=== PATIENT | male | born 1950 | race Caucasian/White ===

== ENCOUNTER 2017-08-19 10:40 | Outpatient (CLI) | payer MEDICARE, OTHER ==
[2017-08-19 19:18] LABS: BASOPHILS # (AUTO) 0.1 10^3/uL (0.0-0.1); BASOPHILS % (AUTO) 0.9 %; EOSINOPHILS # (AUTO) 0.2 10^3/uL (0.0-0.7); EOSINOPHILS % (AUTO) 2.5 %; HCT - HEMATOCRIT 48.5 % (42.0-52.0); HGB - HEMOGLOBIN 16.3 g/dL (14.0-18.0); LYMPHOCYTES # (AUTO) 1.9 10^3/uL (1.5-3.5); LYMPHOCYTES % (AUTO) 28.6 %; MEAN CORPUSCULAR HEMOGLOBIN 33.3 pg (27.0-31.0); MEAN CORPUSCULAR HGB CONC 33.6 g/dL (32.0-36.0); MEAN PLATELET VOLUME 7.8 fL (7.4-11.4); MONOCYTES # (AUTO) 0.5 10^3/uL (0.0-1.0); MONOCYTES % (AUTO) 8.3 %; NEUTROPHILS # (AUTO) 3.9 10^3/uL (1.5-6.6); NEUTROPHILS % (AUTO) 59.7 %; NUCLEATED RED BLOOD CELLS AUTO 0.1 /100WBC; RED CELL DISTRIBUTION WIDTH 13.4 % (12.0-15.0); UNCORRECTED WHITE BLOOD COUNT 6.6 x10^3/uL; WHITE BLOOD COUNT 6.6 x10^3/uL (4.8-10.8)
[2017-08-19 19:27] LABS: ALBUMIN/GLOBULIN RATIO 1.3 (1.0-2.2); BILIRUBIN,TOTAL 1.4 mg/dL (0.2-1.0); BUN - BLOOD UREA NITROGEN 10 mg/dL (6-20); CARBON DIOXIDE - CO2 27 mmol/L (21-32); CHLORIDE 101 mmol/L (101-111); CHOL/HDL RATIO 1.9 (<5.0); CHOLESTEROL 188 mg/dL; CREATININE 0.9 mg/dL (0.6-1.2); GFR - MDRD 84 (>89); GLUCOSE 86 mg/dL (70-100); HDL CHOLESTEROL 100 mg/dL; LDL/HDL RATIO 0.7 (<3.6); POTASSIUM 4.8 mmol/L (3.5-5.0); SODIUM 135 mmol/L (135-145); TOTAL PROTEIN 7.9 g/dL (6.7-8.2); TRIGLYCERIDES 77 mg/dL; VLDL CHOLESTEROL 15 mg/dL
== END 2017-08-19 10:41 | disposition home or self-care (01) ==
LOC: LAB.WCP 10:40
PROVIDERS: ATTEND Family Medicine
DX: I10 Essential (primary) hypertension (principal); Z12.5 Encounter for screening for malignant neoplasm of prostate; J44.9 Chronic obstructive pulmonary disease, unspecified
CPT/HCPCS: 36415; 80053; 80061; 85025; G0103; 84153

== ENCOUNTER 2017-08-30 16:10 | Outpatient (CLI) | payer MEDICARE, OTHER ==
--- NOTE | 2017-08-30 23:57 | Ultrasound Report ---
EXAM: AORTIC DOPPLER ULTRASOUND EXAM DATE: 08/30/2017 05:19 PM. CLINICAL HISTORY: Essential hypertension, tobacco abuse. COMPARISON: 03/16/2016. TECHNIQUE: Real-time sonographic imaging of retroperitoneal vascular structures, including color-flow , Doppler flow and spectral analysis was performed by the cleaning professional. Multiple investment representative static images were saved for review. FINDINGS: Aorta: The abdominal aorta was adequately visualized. No evidence for abdominal aortic aneurysm. Proximal aorta: 1.8 cm. Mid aorta: 2.1 x 2.4 cm. Distal aorta: 1.9 x 2.2 cm. Iliac Vessels: The visualized proximal common iliac arteries are normal in caliber. Iliac Vessels: Rt Iliac: 1.6 x 1.1 cm. Lt Iliac: 1.6 x 1.2 cm. Other: None. IMPRESSION: No abdominal aortic aneurysm. [facility] Referring Provider Line: [phone] SITE ID: [id number]
--- NOTE | 2017-08-31 16:14 | Ultrasound Report ---
EXAM: RENAL ARTERY DOPPLER ULTRASOUND EXAM DATE: 08/30/2017 05:29 PM. CLINICAL HISTORY: Essential hypertension, benign. COMPARISON: None. TECHNIQUE: Real-time sonographic vascular imaging was performed by the sponsorship coordinator through the renal arterial system with a linear transducer utilizing color-flow, Doppler flow, and spectral analysis. M ultiple patient accounting representative static images were saved for review. FINDINGS: Right: The right renal artery is well-visualized throughout its length. Velocities and ratios are nor mal. The right renal vein is patent. The right kidney measures 11.6 x 5.5 x 5.5 cm. Resistive indices are elevated, compatible with medical renal disease. A 1.5 cm cyst is incidentally noted arising fro m the lower pole. Left: The left renal artery is well-visualized throughout its length. Velocities and ratios are latesha l. The left kidney measures 11.4 x 6.7 x 6.2 cm. Resistive indices are at the upper limits of normal. The left renal vein is patent. Proximal Aorta Velocity: 75 cm/sec. RIGHT RENAL ARTERY: Origin: PSV 107 cm/sec, RA/AO 1.4. Proximal: PSV 131 cm/sec, RA/AO 1.7. Mid: PSV 167 cm/sec, RA/AO 2.2. Distal: PSV 114 cm/sec, RA/AO 1.5. RRV: Patent. Segmental Artery/Resistive Index: Upper Pole: PSV 71, RI: 0.74. Mid Pole: PSV 54, RI: 0.73. Lower Pole: PSV 60, RI: 0.73. LEFT RENAL ARTERY: Origin: PSV 191 cm/sec, RA/AO 2.5. Proximal: PSV 192 cm/sec, RA/AO 2.5. Mid: PSV 60 cm/sec, RA/AO 0.80. Distal: PSV 73 cm/sec, RA/AO 0.97. LRV: Patent. Segmental Artery/Resistive Index: Upper Pole: PSV 73, RI 0.68. Mid Pole: PSV 37, RI 0.67. Lower Pole: PSV 74, RI 0.69. IMPRESSION: No evidence of a hemodynamically significant renal artery stenosis. Likely mild medical renal disease . No hydronephrosis. CRITERIA FOR CLASSIFICATION OF RENAL ARTERY DISEASE BY DUPLEX SCANNING: Renal Artery Diameter Reduction/ Renal Artery PSV/ RAR: Normal, < 180 cm/sec, < 3.5 < 60%, >= 180 cm/sec, < 3.5 >= 60%, >= 180 cm/sec, >= 3.5 Occlusion (100%), No signal, No signal [facility] Referring Provider Line: [phone] SITE ID: [id number]
--- NOTE | 2017-08-31 16:27 | CT Report ---
EXAM CT LUNG SCREEN EXAM DATE: 08/30/2017 05:31 PM. HISTORY: 67-year-old patient with [id number] smoking history . Currently smoking: Yes. . COMPARISON: None. TECHNIQUE: CT examination of the entire thorax without contrast was performed using low-dose techniqu e. Thin section coronal, axial, sagittal and MIP axial images were obtained. In accordance with CT protocol optimization, one or more of the following dose reduction techniques w ere utilized for this exam: automated exposure control, adjustment of mA and/or KV based on patient s ize, or use of iterative reconstructive technique. FINDINGS: Nodules: Right upper lobe: None. Right middle lobe: None. Right lower lobe: None. Left upper lobe: None. Left lower lobe: None. Emphysema: Mild biapical. Pleura: Unremarkable. Aorta: Unremarkable. Mediastinum: Unremarkable. Coronary Calcifications: None. Other Findings: None. IMPRESSION: Lung-RADS ASSESSMENT CATEGORY: 1 - negative RECOMMENDATION: Continued annual screening with low-dose chest CT in 12 months. [facility] Referring Provider Line: [phone] SITE ID: [id number]
== END 2017-08-30 16:11 | disposition home or self-care (01) ==
LOC: DI 16:10
PROVIDERS: ATTEND Physician Assistant Medical
DX: Z12.2 Encounter for screening for malignant neoplasm of respiratory organs (principal); Z13.6 Encounter for screening for cardiovascular disorders; I10 Essential (primary) hypertension; F17.210 Nicotine dependence, cigarettes, uncomplicated
CPT/HCPCS: 76706; 93975; G0297

== ENCOUNTER 2018-08-18 08:00 | Outpatient (CLI) | payer MEDICARE, OTHER ==
[2018-08-18 15:02] LABS: ALBUMIN 4.6 g/dL (3.2-5.5); ALBUMIN/GLOBULIN RATIO 1.3 (1.0-2.2); ALKALINE PHOSPHATASE 42 IU/L (42-121); ALT ALANINE AMINOTRANSFERASE 24 IU/L (10-60); AST ASPARTATE AMINOTRANSFERASE 27 IU/L (10-42); BASOPHILS % (AUTO) 0.7 %; BILIRUBIN,TOTAL 1.5 mg/dL (0.2-1.0); BUN - BLOOD UREA NITROGEN < 5 mg/dL (6-20); CARBON DIOXIDE - CO2 27 mmol/L (21-32); CHLORIDE 91 mmol/L (101-111); CHOL/HDL RATIO 2.1 (<5.0); CHOLESTEROL 197 mg/dL; CREATININE 0.8 mg/dL (0.6-1.2); EOSINOPHILS # (AUTO) 0.1 10^3/uL (0.0-0.7); EOSINOPHILS % (AUTO) 1.8 %; GFR - MDRD 96 (>89); GLUCOSE 101 mg/dL (70-100); HDL CHOLESTEROL 96 mg/dL; HGB - HEMOGLOBIN 16.8 g/dL (14.0-18.0); LYMPHOCYTES # (AUTO) 1.6 10^3/uL (1.5-3.5); LYMPHOCYTES % (AUTO) 25.4 %; MEAN CORPUSCULAR HEMOGLOBIN 33.9 pg (27.0-31.0); MEAN CORPUSCULAR HGB CONC 35.1 g/dL (32.0-36.0); MEAN CORPUSCULAR VOLUME 96.5 fL (80.0-94.0); MEAN PLATELET VOLUME 7.5 fL (7.4-11.4); MONOCYTES # (AUTO) 0.7 10^3/uL (0.0-1.0); MONOCYTES % (AUTO) 10.6 %; NEUTROPHILS # (AUTO) 3.8 10^3/uL (1.5-6.6); NEUTROPHILS % (AUTO) 61.5 %; PLT - PLATELET COUNT 251 10^3/uL (130-450); RED BLOOD COUNT 4.96 10^6/uL (4.70-6.10); RED CELL DISTRIBUTION WIDTH 13.2 % (12.0-15.0); SODIUM 126 mmol/L (135-145); TOTAL PROTEIN 8.2 g/dL (6.7-8.2); WHITE BLOOD COUNT 6.3 x10^3/uL (4.8-10.8)
[2018-08-18 15:28] LABS: LDL CHOLESTEROL,DIRECT 66 mg/dL; LDLD/HDL RATIO 0.7 (<3.6)
== END 2018-08-18 23:59 | disposition home or self-care (01) ==
LOC: LAB.WCP 08:00
PROVIDERS: ATTEND Family Medicine
DX: I10 Essential (primary) hypertension (principal); Z12.5 Encounter for screening for malignant neoplasm of prostate
CPT/HCPCS: 36415; 80053; 80061; 83721; 85025; G0103; 84153

== ENCOUNTER 2019-03-27 08:00 | Outpatient (CLI) | payer MEDICARE, OTHER ==
[2019-03-27 12:07] LABS: BASOPHILS # (AUTO) 0.1 10^3/uL (0.0-0.1); BASOPHILS % (AUTO) 0.9 %; EOSINOPHILS # (AUTO) 0.3 10^3/uL (0.0-0.7); EOSINOPHILS % (AUTO) 4.4 %; HGB - HEMOGLOBIN 16.5 g/dL (14.0-18.0); LYMPHOCYTES % (AUTO) 35.9 %; MEAN CORPUSCULAR HEMOGLOBIN 32.4 pg (27.0-31.0); MEAN CORPUSCULAR HGB CONC 33.7 g/dL (32.0-36.0); MEAN CORPUSCULAR VOLUME 96.3 fL (80.0-94.0); MEAN PLATELET VOLUME 9.5 fL (7.4-11.4); MONOCYTES # (AUTO) 0.6 10^3/uL (0.0-1.0); MONOCYTES % (AUTO) 10.4 %; NEUTROPHILS # (AUTO) 2.7 10^3/uL (1.5-6.6); NEUTROPHILS % (AUTO) 48.2 %; PLT - PLATELET COUNT 220 10^3/uL (130-450); RED BLOOD COUNT 5.09 10^6/uL (4.70-6.10); RED CELL DISTRIBUTION WIDTH 13.1 % (12.0-15.0); WHITE BLOOD COUNT 5.7 x10^3/uL (4.8-10.8)
[2019-03-27 13:09] LABS: ALBUMIN 4.3 g/dL (3.2-5.5); ALBUMIN/GLOBULIN RATIO 1.1 (1.0-2.2); ALKALINE PHOSPHATASE 40 IU/L (42-121); ALT ALANINE AMINOTRANSFERASE 28 IU/L (10-60); AST ASPARTATE AMINOTRANSFERASE 32 IU/L (10-42); BILIRUBIN,TOTAL 1.6 mg/dL (0.2-1.0); BUN - BLOOD UREA NITROGEN 7 mg/dL (6-20); CALCIUM 9.1 mg/dL (8.5-10.3); CARBON DIOXIDE - CO2 22 mmol/L (21-32); CHLORIDE 93 mmol/L (101-111); CHOL/HDL RATIO 1.8 (<5.0); CHOLESTEROL 167 mg/dL; CREATININE 0.8 mg/dL (0.6-1.2); GFR - MDRD 96 (>89); GLUCOSE 73 mg/dL (70-100); HDL CHOLESTEROL 92 mg/dL; LDL CHOLESTEROL,CALCULATED 62 mg/dL; LDL/HDL RATIO 0.7 (<3.6); SODIUM 131 mmol/L (135-145); TOTAL PROTEIN 8.1 g/dL (6.7-8.2); VLDL CHOLESTEROL 13 mg/dL
== END 2019-03-27 23:59 | disposition home or self-care (01) ==
LOC: LAB.WCP 08:00
PROVIDERS: ATTEND Physician Assistant Medical
DX: Z00.00 Encounter for general adult medical examination without abnormal findings (principal); I10 Essential (primary) hypertension
CPT/HCPCS: 36415; 80053; 80061; 83721; 85025

== ENCOUNTER 2019-10-12 07:50 | Outpatient (CLI) | payer MEDICARE, OTHER ==
[2019-10-12 12:07] LABS: BASOPHILS % (AUTO) 0.7 %; EOSINOPHILS # (AUTO) 0.3 10^3/uL (0.0-0.7); EOSINOPHILS % (AUTO) 4.4 %; HGB - HEMOGLOBIN 16.3 g/dL (14.0-18.0); LYMPHOCYTES % (AUTO) 31.7 %; MEAN CORPUSCULAR HEMOGLOBIN 33.2 pg (27.0-31.0); MEAN CORPUSCULAR HGB CONC 34.2 g/dL (32.0-36.0); MEAN CORPUSCULAR VOLUME 96.9 fL (80.0-94.0); MEAN PLATELET VOLUME 9.2 fL (7.4-11.4); MONOCYTES # (AUTO) 0.7 10^3/uL (0.0-1.0); NEUTROPHILS # (AUTO) 3.1 10^3/uL (1.5-6.6); NEUTROPHILS % (AUTO) 50.9 %; PLT - PLATELET COUNT 235 10^3/uL (130-450); RED BLOOD COUNT 4.91 10^6/uL (4.70-6.10); RED CELL DISTRIBUTION WIDTH 12.5 % (12.0-15.0); WHITE BLOOD COUNT 6.2 x10^3/uL (4.8-10.8)
[2019-10-12 12:33] LABS: ALBUMIN 4.2 g/dL (3.2-5.5); ALBUMIN/GLOBULIN RATIO 1.1 (1.0-2.2); ALKALINE PHOSPHATASE 41 IU/L (42-121); ALT ALANINE AMINOTRANSFERASE 31 IU/L (10-60); AST ASPARTATE AMINOTRANSFERASE 32 IU/L (10-42); BILIRUBIN,TOTAL 1.7 mg/dL (0.2-1.0); BUN - BLOOD UREA NITROGEN 11 mg/dL (6-20); CALCIUM 8.8 mg/dL (8.5-10.3); CARBON DIOXIDE - CO2 26 mmol/L (21-32); CHLORIDE 93 mmol/L (101-111); CHOL/HDL RATIO 1.9 (<5.0); CHOLESTEROL 181 mg/dL; CREATININE 0.9 mg/dL (0.6-1.2); GFR - MDRD 84 (>89); GLUCOSE 93 mg/dL (70-100); HDL CHOLESTEROL 95 mg/dL; LDL CHOLESTEROL,CALCULATED 75 mg/dL; LDL/HDL RATIO 0.8 (<3.6); SODIUM 131 mmol/L (135-145); TOTAL PROTEIN 7.9 g/dL (6.7-8.2); VLDL CHOLESTEROL 11 mg/dL
== END 2019-10-12 23:59 | disposition home or self-care (01) ==
LOC: LAB.WCP 07:50
PROVIDERS: ATTEND Physician Assistant Medical
DX: I10 Essential (primary) hypertension (principal); Z12.5 Encounter for screening for malignant neoplasm of prostate
CPT/HCPCS: 36415; 80053; 80061; 85025; G0103; 83721; 84153

== ENCOUNTER 2019-10-16 13:17 | Outpatient (CLI) | payer MEDICARE, OTHER ==
--- NOTE | 2019-10-16 16:38 | CT Report ---
Reason: TOBACCO ABUSE Procedure Date: 10/16/2019 Accession Number: [id number] / [id number] Procedure: CT - Low Dose Lung Cancer Screen CPT Code: Final Report FULL RESULT: EXAM CT LUNG SCREEN EXAM DATE: 10/16/2019 01:33 PM. HISTORY: 69-year-old patient with [id number] smoking history. Currently smoking: Yes. COMPARISON: CHEST SCREEN LOW DOSE W/O 08/30/2017 4:55 PM. TECHNIQUE: CT examination of the entire thorax without contrast was performed using low-dose technique. Thin section coronal, axial, sagittal and MIP axial images were obtained. In accordance with CT protocol optimization, one or more of the following dose reduction techniques were utilized for this exam: automated exposure control, adjustment of mA and/or KV based on patient size, or use of iterative reconstructive technique. FINDINGS: Nodules: Right upper lobe: None. Right middle lobe: None. Right lower lobe: 5 mm nodule image 111 series 4, new. Left upper lobe: None. Left lower lobe: None. Emphysema: Mild. Pleura: Unremarkable. Aorta: Unremarkable. Mediastinum: Unremarkable. Coronary calcifications: Moderate. Other pulmonary findings: None. Other extrapulmonary findings: None. IMPRESSION: Lung-RADS ASSESSMENT CATEGORY: 3 - probably benign. Probability of malignancy: 2%. RECOMMENDATION: 6 month low-dose chest CT follow-up. [facility]
== END 2019-10-16 13:18 | disposition home or self-care (01) ==
LOC: DI 13:17
PROVIDERS: ATTEND Physician Assistant Medical
DX: Z12.2 Encounter for screening for malignant neoplasm of respiratory organs (principal); F17.210 Nicotine dependence, cigarettes, uncomplicated; J43.9 Emphysema, unspecified

== ENCOUNTER 2020-04-18 08:00 | Outpatient (CLI) | payer MEDICARE, OTHER ==
[2020-04-18 12:17] LABS: BASOPHILS # (AUTO) 0.1 10^3/uL (0.0-0.1); EOSINOPHILS # (AUTO) 0.2 10^3/uL (0.0-0.7); EOSINOPHILS % (AUTO) 2.7 %; HGB - HEMOGLOBIN 16.7 g/dL (14.0-18.0); LYMPHOCYTES # (AUTO) 1.6 10^3/uL (1.5-3.5); MEAN CORPUSCULAR HEMOGLOBIN 34.7 pg (27.0-31.0); MEAN CORPUSCULAR HGB CONC 35.8 g/dL (32.0-36.0); MEAN CORPUSCULAR VOLUME 96.9 fL (80.0-94.0); MEAN PLATELET VOLUME 9.3 fL (7.4-11.4); MONOCYTES # (AUTO) 0.7 10^3/uL (0.0-1.0); MONOCYTES % (AUTO) 10.7 %; NEUTROPHILS # (AUTO) 3.7 10^3/uL (1.5-6.6); NEUTROPHILS % (AUTO) 60.1 %; PLT - PLATELET COUNT 217 10^3/uL (130-450); RED BLOOD COUNT 4.81 10^6/uL (4.70-6.10); RED CELL DISTRIBUTION WIDTH 12.5 % (12.0-15.0); WHITE BLOOD COUNT 6.2 x10^3/uL (4.8-10.8)
[2020-04-18 12:55] LABS: ALBUMIN 4.3 g/dL (3.2-5.5); ALBUMIN/GLOBULIN RATIO 1.3 (1.0-2.2); ALKALINE PHOSPHATASE 38 IU/L (42-121); ALT ALANINE AMINOTRANSFERASE 33 IU/L (10-60); AST ASPARTATE AMINOTRANSFERASE 32 IU/L (10-42); BILIRUBIN,TOTAL 1.8 mg/dL (0.2-1.0); BUN - BLOOD UREA NITROGEN 8 mg/dL (6-20); CALCIUM 9.1 mg/dL (8.5-10.3); CARBON DIOXIDE - CO2 27 mmol/L (21-32); CHLORIDE 92 mmol/L (101-111); CHOLESTEROL 169 mg/dL; CREATININE 0.8 mg/dL (0.6-1.2); GLUCOSE 84 mg/dL (70-100); HDL CHOLESTEROL 84 mg/dL; LDL CHOLESTEROL,CALCULATED 72 mg/dL; LDL/HDL RATIO 0.9 (<3.6); SODIUM 129 mmol/L (135-145); TOTAL PROTEIN 7.7 g/dL (6.7-8.2); VLDL CHOLESTEROL 13 mg/dL
== END 2020-04-18 23:59 | disposition home or self-care (01) ==
LOC: LAB.WCP 08:00
PROVIDERS: ATTEND Physician Assistant Medical
DX: I10 Essential (primary) hypertension (principal)
CPT/HCPCS: 36415; 80053; 80061; 83721; 85025

== ENCOUNTER 2020-10-03 07:51 | Outpatient (CLI) | payer MEDICARE, OTHER ==
[2020-10-03 13:46] LABS: ALBUMIN 4.1 g/dL (3.2-5.5); ALBUMIN/GLOBULIN RATIO 1.1 (1.0-2.2); BILIRUBIN,TOTAL 2.5 mg/dL (0.2-1.0); CREATININE 1.1 mg/dL (0.6-1.2); TOTAL PROTEIN 7.7 g/dL (6.7-8.2)
== END 2020-10-03 23:59 | disposition home or self-care (01) ==
LOC: LAB.WCP 07:51
PROVIDERS: ATTEND Physician Assistant Medical
DX: I10 Essential (primary) hypertension (principal); D12.6 Benign neoplasm of colon, unspecified
CPT/HCPCS: 36415; 80053; 84153

== ENCOUNTER 2021-05-16 07:58 | Outpatient (CLI) | payer MEDICARE, OTHER ==
[2021-05-16 11:53] LABS: BASOPHILS # (AUTO) 0.1 10^3/uL (0.0-0.1); BASOPHILS % (AUTO) 0.9 %; EOSINOPHILS # (AUTO) 0.2 10^3/uL (0.0-0.7); EOSINOPHILS % (AUTO) 2.9 %; HGB - HEMOGLOBIN 15.5 g/dL (14.0-18.0); LYMPHOCYTES # (AUTO) 1.6 10^3/uL (1.5-3.5); LYMPHOCYTES % (AUTO) 27.4 %; MEAN CORPUSCULAR HEMOGLOBIN 33.8 pg (27.0-31.0); MEAN CORPUSCULAR HGB CONC 34.4 g/dL (32.0-36.0); MEAN PLATELET VOLUME 9.2 fL (7.4-11.4); MONOCYTES # (AUTO) 0.7 10^3/uL (0.0-1.0); MONOCYTES % (AUTO) 12.7 %; NEUTROPHILS # (AUTO) 3.2 10^3/uL (1.5-6.6); NEUTROPHILS % (AUTO) 55.6 %; PLT - PLATELET COUNT 215 10^3/uL (130-450); RED BLOOD COUNT 4.59 10^6/uL (4.70-6.10); RED CELL DISTRIBUTION WIDTH 12.6 % (12.0-15.0); WHITE BLOOD COUNT 5.8 x10^3/uL (4.8-10.8)
[2021-05-16 12:28] LABS: ALBUMIN 4.2 g/dL (3.2-5.5); ALBUMIN/GLOBULIN RATIO 1.1 (1.0-2.2); ALKALINE PHOSPHATASE 57 IU/L (42-121); ALT ALANINE AMINOTRANSFERASE 25 IU/L (10-60); AST ASPARTATE AMINOTRANSFERASE 29 IU/L (10-42); BILIRUBIN,TOTAL 1.6 mg/dL (0.2-1.0); BUN - BLOOD UREA NITROGEN 11 mg/dL (6-20); CALCIUM 9.4 mg/dL (8.5-10.3); CARBON DIOXIDE - CO2 28 mmol/L (21-32); CHLORIDE 92 mmol/L (101-111); CHOL/HDL RATIO 1.7 (<5.0); CHOLESTEROL 187 mg/dL; CREATININE 1.1 mg/dL (0.6-1.2); GFR - MDRD 66 (>89); GLUCOSE 84 mg/dL (70-100); HDL CHOLESTEROL 108 mg/dL; LDL CHOLESTEROL,CALCULATED 68 mg/dL; LDL/HDL RATIO 0.6 (<3.6); POTASSIUM 4.7 mmol/L (3.5-5.0); SODIUM 130 mmol/L (135-145); TRIGLYCERIDES 55 mg/dL; VLDL CHOLESTEROL 11 mg/dL
== END 2021-05-16 23:59 | disposition home or self-care (01) ==
LOC: LAB.WCP 07:58
PROVIDERS: ATTEND Physician Assistant Medical
DX: I10 Essential (primary) hypertension (principal)
CPT/HCPCS: 36415; 80053; 80061; 83721; 85025

== ENCOUNTER 2021-06-21 14:17 | Outpatient (CLI) | payer MEDICARE, OTHER ==
--- NOTE | 2021-06-21 16:04 | CT Report ---
PROCEDURE: Low Dose Lung Cancer Screen INDICATIONS: PULMONARY NODULE CONTRAST: None TECHNIQUE: Low dose CT of the chest was performed. For radiation dose reduction, the following was used: automa caridad exposure control, adjustment of mA and/or kV according to patient size. COMPARISON: None. FINDINGS: Image quality: Excellent. CHEST: Lungs and pleura: The lungs demonstrate paraseptal and centrilobular emphysematous changes. No pulmon carmen nodules are identified. No acute airspace opacities. No pleural effusions or pneumothorax. Elza tral and peripheral airways appear patent and normal in caliber. The coronary arteries have atherosc lerotic calcifications. Mediastinum: Heart size is normal. No pericardial effusion. No mediastinal or hilar adenopathy by size criteria. Thoracic aorta and central pulmonary arteries are normal in size. Esophagus is latesha l in caliber. No hiatal hernia. Chest wall: No axillary or supraclavicular adenopathy by size criteria. Thyroid is normal IMPRESSION: 1. No pulmonary nodule identified. 2. Centrilobular emphysema and paraseptal emphysema. Lung RADS 1. No nodules or definitely benign nodules. Continue annual screening with low-dose chest C T. Reviewed by: Candelario Celestin on 06/21/2021 4:03 PM PDT Approved by: Candelario Celestin on 06/21/2021 4:03 PM PDT Station ID: [id number]
== END 2021-06-21 14:18 | disposition home or self-care (01) ==
LOC: DI 14:17
PROVIDERS: ATTEND Physician Assistant Medical
DX: R91.1 Solitary pulmonary nodule (principal); F17.210 Nicotine dependence, cigarettes, uncomplicated; J43.2 Centrilobular emphysema

== ENCOUNTER 2021-08-25 07:29 | Day surgery (SDC) | payer MEDICARE, OTHER ==
--- NOTE | 2021-08-25 07:41 | ANESTHESIA ---
Pre-Anesthesia VS, & Labs - Diagnosis hx colon polyps - Procedure colonoscopy Height: 5 ft 7 in Home Medications and Allergies Home Medications: Ambulatory Orders Lactobacillus Combination No.4 [Probiotic] 1 each PO DAILY 08/24/21 hydroCHLOROthiazide [Hydrodiuril] 25 mg PO DAILY 08/24/21 Telmisartan [Micardis] 1 tab ORAL DAILY 05/11/16 Lactobacillus Combination No.4 [Probiotic] 1 each PO DAILY 08/24/21 hydroCHLOROthiazide [Hydrodiuril] 25 mg PO DAILY 08/24/21 Anes History & Medical History - Anesthetic History Anesthesia Complications: reports: No previous complications Family history of Anesthesia Complications: Denies Family history of Malignant Hyperthermia: Denies - Medical History Cardiovascular: reports: Hypertension Pulmonary: reports: None Gastrointestinal: reports: None Urinary: reports: None Musculoskeletal: reports: Osteoarthritis Endocrine/Autoimmune: reports: None Skin: reports: None - Surgical History General: reports: Colonoscopy, Other Orthopedic: reports: Knee replacement Exam General: Alert, Oriented x3, Cooperative Dental: WNL Mouth Openin Fingerbreadth Neck Mobility: Normal Mallampati classification: II Thyromental Distance: 4-6 cm Respiratory: Lungs clear, Normal breath sounds, No respiratory distress Cardiovascular: Regular rate Mental/Cognitive Status: Alert/Oriented X3, Normal for patient Cognitive Status: Within normal limits Plan Anesthesia Type: General, Total IV Consent for Procedure(s) Verified and Reviewed: Yes Code Status: Attempt Resuscitation ASA classification: 2-Mild systemic disease Is this case an emergency?: No
[2021-08-25] MEDS ORDERED: LACTATED RINGERS 1,000 ML IV ONE ×2 (08:01→09:14)
[2021-08-25] MEDS ORDERED: LIDOCAINE-MPF 2% 5 ML VIAL ONE (08:26)
[2021-08-25] MEDS ORDERED: PROPOFOL 500 MG/50 ML 500 MG/50 ML VIAL ONE (08:27)
--- NOTE | 2021-08-25 08:32 | HISTORY & PHYSICAL EXAMINATION ---
Chief Complaint - Chief Complaint Chief Complaint: history colon polyp History of Present Illness - History Obtained From Records Reviewed: yes History obtained from: pt Exam Limitations: none - History of Present Illness HPI Comment/Other: History of colon polyp. Here for surveillance colonoscopy History - Past Medical History Cardiovascular: reports: Hypertension Respiratory: reports: None Endocrine/Autoimmune: reports: None GI: reports: None : reports: None HEENT: reports: Chronic vision loss, Chronic hearing loss Psych: Musculoskeletal: reports: Osteoarthritis Derm: reports: None MRSA Hx?: No - Past Surgical History General: reports: Colonoscopy, Other Ortho: reports: Knee replacement Meds/Allgy - Home Medications Home Medications: Ambulatory Orders Medication Instructions Recorded Confirmed Telmisartan [Micardis] 1 tab ORAL DAILY 05/11/16 05/14/16 Lactobacillus Combination No.4 1 each PO DAILY 08/24/21 08/24/21 [Probiotic] hydroCHLOROthiazide [Hydrodiuril] 25 mg PO DAILY 08/24/21 08/24/21 Review of Systems - Other Findings Other Findings: 10 pt ros as above otherwise unremarkable Exam - Vital Signs Reviewed Vital Signs: Yes Vital Signs: Vital Signs x48h Temp Pulse Resp BP Pulse Ox 08/25/21 07:44 36.2 C L 88 17 168/98 H 93 - Physical Exam General Appearance: positive: Alert Eyes Bilateral: positive: PERRL, EOMI ENT: positive: No signs of dehydration Neck: positive: No JVD Respiratory: positive: No respiratory distress, Breath sounds nml Cardiovascular: positive: Regular rate & rhythm Abdomen: positive: Non-tender, No distention Neurologic/Psychiatric: positive: Oriented x3 Conclusion/Plan - Problem List (1) History of adenomatous polyp of colon Conclusion/Plan: plan colonoscopy. parq held and consent obtained
[2021-08-25] MEDS ORDERED: ePHEDrine 50 MG/ML VIAL IVP ONE (09:05)
[2021-08-25 09:37] VITALS: BP 141/80
--- NOTE | 2021-08-25 10:20 | ANESTHESIA POST OP EVALUATION ---
Anesthesia Post Eval - Post Anesthesia Eval Vitals: Last Vital Signs Temp 36.4 C L 08/25/21 09:37 Pulse 73 08/25/21 09:37 Resp 16 08/25/21 09:37 BP 141/80 H 08/25/21 09:37 Pulse Ox 100 08/25/21 09:37 CV Function Including HR & BP: Stable Pain Control: Satisfactory Nausea & Vomiting: Negative Mental Status: Baseline Respiratory Status: Airway Patent Hydration Status: Satisfactory Anesthesia Complications: None
== END 2021-08-25 07:30 | disposition home or self-care (01) ==
LOC: SDS 07:29
PROVIDERS: ATTEND Surgery
DX: Z12.11 Encounter for screening for malignant neoplasm of colon (principal); K60.2 Anal fissure, unspecified; K57.30 Diverticulosis of large intestine without perforation or abscess without bleeding; F10.99 Alcohol use, unspecified with unspecified alcohol-induced disorder; J44.9 Chronic obstructive pulmonary disease, unspecified; Z86.010 Personal history of colon polyps
CPT/HCPCS: G0105; J7120

== ENCOUNTER 2022-03-16 08:00 | Outpatient (CLI) | payer MEDICARE, OTHER ==
[2022-03-16 12:29] LABS: BASOPHILS # (AUTO) 0.1 10^3/uL (0.0-0.1); BASOPHILS % (AUTO) 1.1 %; EOSINOPHILS # (AUTO) 0.3 10^3/uL (0.0-0.7); EOSINOPHILS % (AUTO) 5.6 %; HGB - HEMOGLOBIN 15.6 g/dL (14.0-18.0); LYMPHOCYTES # (AUTO) 1.5 10^3/uL (1.5-3.5); MEAN CORPUSCULAR HEMOGLOBIN 33.7 pg (27.0-31.0); MEAN CORPUSCULAR HGB CONC 34.7 g/dL (32.0-36.0); MEAN CORPUSCULAR VOLUME 97.2 fL (80.0-94.0); MEAN PLATELET VOLUME 9.2 fL (7.4-11.4); MONOCYTES # (AUTO) 0.8 10^3/uL (0.0-1.0); MONOCYTES % (AUTO) 14.3 %; NEUTROPHILS # (AUTO) 2.9 10^3/uL (1.5-6.6); NEUTROPHILS % (AUTO) 52.5 %; PLT - PLATELET COUNT 209 10^3/uL (130-450); RED BLOOD COUNT 4.63 10^6/uL (4.70-6.10); RED CELL DISTRIBUTION WIDTH 12.1 % (12.0-15.0); WHITE BLOOD COUNT 5.6 x10^3/uL (4.8-10.8)
[2022-03-16 12:48] LABS: ALBUMIN/GLOBULIN RATIO 1.1 (1.0-2.2); ALKALINE PHOSPHATASE 46 IU/L (42-121); ALT ALANINE AMINOTRANSFERASE 25 IU/L (10-60); AST ASPARTATE AMINOTRANSFERASE 30 IU/L (10-42); BILIRUBIN,TOTAL 1.6 mg/dL (0.2-1.0); BUN - BLOOD UREA NITROGEN 8 mg/dL (6-20); CALCIUM 9.1 mg/dL (8.5-10.3); CARBON DIOXIDE - CO2 29 mmol/L (21-32); CHLORIDE 90 mmol/L (101-111); CHOL/HDL RATIO 1.7 (<5.0); CHOLESTEROL 174 mg/dL; GFR - MDRD 73 (>89); GLUCOSE 82 mg/dL (70-100); HDL CHOLESTEROL 101 mg/dL; LDL CHOLESTEROL,CALCULATED 63 mg/dL; LDL/HDL RATIO 0.6 (<3.6); POTASSIUM 4.4 mmol/L (3.5-5.0); SODIUM 126 mmol/L (135-145); TOTAL PROTEIN 7.7 g/dL (6.7-8.2); TRIGLYCERIDES 48 mg/dL; VLDL CHOLESTEROL 10 mg/dL
== END 2022-03-16 08:01 | disposition home or self-care (01) ==
LOC: LAB.N 08:00
PROVIDERS: ATTEND Physician Assistant Medical
DX: I10 Essential (primary) hypertension (principal)
CPT/HCPCS: 36415; 80053; 80061; 83721; 85025

== ENCOUNTER 2022-04-09 09:33 | Outpatient (CLI) | payer MEDICARE, OTHER ==
--- NOTE | 2022-04-09 13:02 | XRAY Report ---
PROCEDURE: Hip w/Pelvis 1V LT INDICATIONS: L HIP PX TECHNIQUE: AP pelvis with lateral views of the left hip COMPARISON: None. FINDINGS: Bones: No acute fractures or dislocations. Pelvic ring appears intact. No suspicious bony lesions. Degenerative changes are seen in the hips bilaterally with predominantly medial joint space narrowi ng and marginal osteophyte formation. Degenerative changes also noted in the lower lumbar spine. Soft tissues: The visualized bowel gas pattern is normal. Heterotopic ossification is seen along the lateral aspect of the left proximal femur. IMPRESSION: 1.Moderate degenerative changes in the hips bilaterally. Degenerative changes also seen in the lumbar spine. 2.Mild heterotopic ossification at the lateral aspect of the left proximal femur. Reviewed by: Norbert Ignacio MD on 04/09/2022 1:00 PM PDT Approved by: Norbert Ignacio MD on 04/09/2022 1:00 PM PDT Station ID: [id number]
== END 2022-04-09 09:34 | disposition home or self-care (01) ==
LOC: DI.N 09:33
PROVIDERS: ATTEND Physician Assistant Medical
DX: M16.0 Bilateral primary osteoarthritis of hip (principal); M47.816 Spondylosis without myelopathy or radiculopathy, lumbar region

== ENCOUNTER 2023-04-02 07:56 | Outpatient (CLI) | payer MEDICARE, OTHER ==
[2023-04-02 12:18] LABS: BASOPHILS # (AUTO) 0.1 10^3/uL (0.0-0.1); BASOPHILS % (AUTO) 1.2 %; EOSINOPHILS # (AUTO) 0.5 10^3/uL (0.0-0.7); EOSINOPHILS % (AUTO) 8.4 %; HCT - HEMATOCRIT 43.4 % (42.0-52.0); HGB - HEMOGLOBIN 15.6 g/dL (14.0-18.0); LYMPHOCYTES # (AUTO) 1.8 10^3/uL (1.5-3.5); LYMPHOCYTES % (AUTO) 29.1 %; MEAN CORPUSCULAR HEMOGLOBIN 33.9 pg (27.0-31.0); MEAN CORPUSCULAR HGB CONC 35.9 g/dL (32.0-36.0); MEAN CORPUSCULAR VOLUME 94.3 fL (80.0-94.0); MEAN PLATELET VOLUME 9.2 fL (7.4-11.4); MONOCYTES # (AUTO) 0.8 10^3/uL (0.0-1.0); MONOCYTES % (AUTO) 13.2 %; NEUTROPHILS # (AUTO) 2.9 10^3/uL (1.5-6.6); NEUTROPHILS % (AUTO) 47.6 %; PLT - PLATELET COUNT 215 10^3/uL (130-450); RED CELL DISTRIBUTION WIDTH 12.1 % (12.0-15.0)
[2023-04-02 12:41] LABS: ALBUMIN 4.2 g/dL (3.2-5.5); ALBUMIN/GLOBULIN RATIO 1.1 (1.0-2.2); ALKALINE PHOSPHATASE 46 IU/L (42-121); ALT ALANINE AMINOTRANSFERASE 25 IU/L (10-60); AST ASPARTATE AMINOTRANSFERASE 26 IU/L (10-42); BILIRUBIN,TOTAL 2.1 mg/dL (0.2-1.0); BUN - BLOOD UREA NITROGEN 10 mg/dL (6-20); CALCIUM 8.9 mg/dL (8.5-10.3); CARBON DIOXIDE - CO2 31 mmol/L (21-32); CHLORIDE 90 mmol/L (101-111); CHOL/HDL RATIO 1.7 (<5.0); CHOLESTEROL 185 mg/dL; CREATININE 1.1 mg/dL (0.6-1.2); GFR - MDRD 66 (>89); GLUCOSE 97 mg/dL (70-100); HDL CHOLESTEROL 112 mg/dL; LDL CHOLESTEROL,CALCULATED 61 mg/dL; LDL/HDL RATIO 0.5 (<3.6); POTASSIUM 4.2 mmol/L (3.5-5.0); SODIUM 127 mmol/L (135-145); TRIGLYCERIDES 61 mg/dL; VLDL CHOLESTEROL 12 mg/dL
== END 2023-04-02 07:57 | disposition home or self-care (01) ==
LOC: LAB.N 07:56
PROVIDERS: ATTEND Physician Assistant Medical
DX: I10 Essential (primary) hypertension (principal)
CPT/HCPCS: 36415; 80053; 80061; 83721; 85025

== ENCOUNTER 2023-05-10 09:18 | Outpatient (CLI) | payer MEDICARE, OTHER ==
--- NOTE | 2023-05-10 19:16 | CT Report ---
PROCEDURE: Low Dose Lung Cancer Screen INDICATIONS: SMOKER TECHNIQUE: A CT scan of the chest was performed. Intravenous contrast media was not administered. Images were re corded and evaluated at appropriate window settings. Reformats: axial MIP of the chest, coronal and s agittal. For radiation dose reduction, the following was used: automated exposure control, adjustment of mA and/or kV according to patient size. COMPARISON: None. FINDINGS: Lungs and pleura: No pleural effusions. No pneumothorax. Moderate pulmonary emphysema with biapical subpleural blebs. No focal infiltrate or pulmonary nodule. Pleural spaces are clear. Mediastinum: Heart size is normal. No pericardial effusion. No large vessel abnormality. No mediastin al adenopathy by size criteria. Chest wall and lower neck: Thyroid is unremarkable. No axillary or supraclavicular adenopathy by size . Bones: No aggressive osseous abnormality. Upper Abdomen: Unremarkable. IMPRESSION: No evidence of pulmonary nodule. Lung RAD category 1: Negative. Continue annual screening. Pulmonary emphysema with biapical pulmonary blebs, stable Reviewed by: Jessee Hawkins MD on 05/10/2023 6:14 PM AKDT Approved by: Jessee Hawkins MD on 05/10/2023 6:14 PM AKDT Station ID: [id number]
== END 2023-05-10 09:19 | disposition home or self-care (01) ==
LOC: DI 09:18
PROVIDERS: ATTEND Physician Assistant Medical
DX: Z12.2 Encounter for screening for malignant neoplasm of respiratory organs (principal); F17.210 Nicotine dependence, cigarettes, uncomplicated; J43.9 Emphysema, unspecified

== ENCOUNTER 2023-05-13 09:58 | Outpatient (CLI) | payer MEDICARE, OTHER ==
[2023-05-13 13:32] LABS: CALCIUM 9.3 mg/dL (8.5-10.3); CREATININE 1.2 mg/dL (0.6-1.3); POTASSIUM 4.1 mmol/L (3.5-4.5)
== END 2023-05-13 09:59 | disposition home or self-care (01) ==
LOC: LAB.N 09:58
PROVIDERS: ATTEND Physician Assistant Medical
DX: I10 Essential (primary) hypertension (principal); Z12.5 Encounter for screening for malignant neoplasm of prostate
CPT/HCPCS: 36415; 80048; G0103; 84153

== ENCOUNTER 2023-07-15 15:53 | Outpatient (CLI) | payer MEDICARE, OTHER ==
[2023-07-15] MEDS ORDERED: ALBUTEROL 1 PUFF INH STA (17:22)
== END 2023-07-15 15:54 | disposition home or self-care (01) ==
LOC: RT 15:53
PROVIDERS: ATTEND Family Medicine
DX: J44.1 Chronic obstructive pulmonary disease with (acute) exacerbation (principal)
CPT/HCPCS: 94060

== ENCOUNTER 2023-08-14 11:00 | Outpatient (CLI) | payer MEDICARE, OTHER ==
[2023-08-14 17:42] LABS: BASOPHILS # (AUTO) 0.1 10^3/uL (0.0-0.1); BASOPHILS % (AUTO) 0.9 %; EOSINOPHILS # (AUTO) 0.5 10^3/uL (0.0-0.7); EOSINOPHILS % (AUTO) 6.1 %; HCT - HEMATOCRIT 44.1 % (42.0-52.0); HGB - HEMOGLOBIN 15.1 g/dL (14.0-18.0); LYMPHOCYTES # (AUTO) 1.5 10^3/uL (1.5-3.5); MEAN CORPUSCULAR HEMOGLOBIN 33.8 pg (27.0-31.0); MEAN CORPUSCULAR HGB CONC 34.2 g/dL (32.0-36.0); MEAN CORPUSCULAR VOLUME 98.7 fL (80.0-94.0); MEAN PLATELET VOLUME 9.2 fL (7.4-11.4); MONOCYTES % (AUTO) 12.2 %; NEUTROPHILS % (AUTO) 61.6 %; PLT - PLATELET COUNT 198 10^3/uL (130-450); RED BLOOD COUNT 4.47 10^6/uL (4.70-6.10); RED CELL DISTRIBUTION WIDTH 12.4 % (12.0-15.0); WHITE BLOOD COUNT 8.1 x10^3/uL (4.8-10.8)
[2023-08-14 18:46] LABS: CALCIUM 9.3 mg/dL (8.5-10.3); POTASSIUM 4.5 mmol/L (3.5-4.5)
[2023-08-14 19:45] LABS: THYROID STIMULATING HORMONE 0.9 uIU/mL (0.34-5.60)
== END 2023-08-14 11:01 | disposition home or self-care (01) ==
LOC: LAB.N 11:00
PROVIDERS: ATTEND Physician Assistant Medical
DX: E87.1 Hypo-osmolality and hyponatremia (principal); R55 Syncope and collapse
CPT/HCPCS: 36415; 80048; 84443; 85025

== ENCOUNTER 2023-10-08 11:10 | Outpatient (CLI) | payer MEDICARE, OTHER ==
[2023-10-08 18:00] LABS: CALCIUM 9.2 mg/dL (8.5-10.3); CREATININE 1.1 mg/dL (0.6-1.3); POTASSIUM 4.6 mmol/L (3.5-4.5)
== END 2023-10-08 11:11 | disposition home or self-care (01) ==
LOC: LAB.N 11:10
PROVIDERS: ATTEND Family Medicine
DX: E87.1 Hypo-osmolality and hyponatremia (principal)
CPT/HCPCS: 36415; 80048

== ENCOUNTER 2024-03-24 08:00 | Outpatient (CLI) | payer MEDICARE, OTHER ==
[2024-03-24 17:42] LABS: BILIRUBIN,URINE NEGATIVE (NEGATIVE); GLUCOSE, URINE (UA) NEGATIVE (NEGATIVE); KETONES,URINE (UA) NEGATIVE (NEGATIVE); LEUKOCYTE ESTERASE, URINE NEGATIVE (NEGATIVE); NITRITE,URINE NEGATIVE (NEGATIVE); OCCULT BLOOD,URINE TRACE-INTA (NEGATIVE); PH,URINE 6.5 PH (5.0-7.5); PROTEIN,URINE NEGATIVE (NEGATIVE); UROBILINOGEN,URINE 0.2 (NORMAL) E.U./dL (NORMAL)
[2024-03-24 17:54] LABS: CLARITY,URINE CLEAR (CLEAR)
[2024-03-24 18:27] LABS: BACTERIA,URINE None Seen /HPF (None Seen); RBC,URINE 0-5 /HPF (0-5); SQUAMOUS EPITHELIAL CELL,UR NONE SEEN (<= Few)
== END 2024-03-24 23:59 | disposition home or self-care (01) ==
LOC: LAB.N 08:00
PROVIDERS: ATTEND Physician Assistant Medical
DX: R10.30 Lower abdominal pain, unspecified (principal)
CPT/HCPCS: 81001; 87086

== ENCOUNTER 2024-04-02 12:01 | Outpatient (CLI) | payer MEDICARE, OTHER ==
[2024-04-02] MEDS ORDERED: DIATRIZOATE MEGLU/DIATRIZO SOD 30 ML BOTTLE PO ONE (12:22)
[2024-04-02] MEDS ORDERED: iohexoL-300 100 ML VIAL ONE (12:22)
[2024-04-02] MEDS: DIATRIZOATE MEGLU/DIATRIZO SOD 30 ML BOTTLE PO ONE (13:49)
[2024-04-02] MEDS: iohexoL-300 100 ML VIAL IVP ONE (13:49)
--- NOTE | 2024-04-02 17:26 | CT Report ---
PROCEDURE: Abdomen/Pelvis W INDICATIONS: ABD PAIN CONTRAST: 100ml [id number] TECHNIQUE: After the administration of intravenous contrast, a CT scan of the abdomen and pelvis was performed. Images were recorded and evaluated at appropriate window settings. Reformats: coronal and sagittal. F or radiation dose reduction, the following was used: automated exposure control, adjustment of mA and /or kV according to patient size. COMPARISON: None. FINDINGS: Image quality: Diagnostic. Lower chest: Unremarkable. Liver: No solid mass. Gallbladder: No radiopaque stones or wall thickening. Biliary tree: No intrahepatic or extrahepatic dilation, accounting for age. Spleen: No splenomegaly. Pancreas: No pancreatic ductal dilation. Adrenals: No adrenal nodule. Kidneys and ureters: There is severe, chronic-appearing left hydronephrosis and hydroureter. Left ure ter is redundant. There is nodular thickening and enhancement of the bladder wall at the left uretero vesicular junction measuring about 1.8 cm. There is also thickening and mild mucosal hyperemia along the left posterior aspect of the urinary bladder. The kidneys demonstrate symmetric cortical enhancem ent. There is slight prominence of the right collecting system. Cortical cyst without solid cortical masses. Stomach, bowel and peritoneum: Prominent sigmoid colonic diverticulosis. No acute inflammation. Colon is otherwise normal. Normal appendix. Stomach and small bowel are within normal limits. No pathologi c free fluid. Lymph nodes: There are enlarged left periaortic retroperitoneal lymph nodes to the level of the left renal vein. No mesenteric masses. Vessels: Normal caliber abdominal aorta, IVC, and portal vein. Patent portal vein. PELVIS Reproductive organs: Normal size prostate gland. Bladder: Asymmetric left bladder wall thickening and nodular enhancement is described above. Pelvic lymph nodes: There is mild fascial thickening and hazy fat stranding in the left external shanelle c chain with hyperemic, mildly prominent lymph nodes extending to the internal and external bifurcati on. Bones: No aggressive osseous abnormality. Other: No significant ventral or inguinal hernia. IMPRESSION: There is a nodular, enhancing masslike thickening of the left urinary bladder at the left ureterovesi cular junction causing chronic appearing severe left hydroureteronephrosis. There is no delay in renal function. There is associated left pelvic and left retroperitoneal adenopathy to the level of the left renal ve in. Sigmoid colon diverticulosis without acute inflammation. Reviewed by: Faith Nunez MD on 04/02/2024 5:25 PM PDT Approved by: Faith Nunez MD on 04/02/2024 5:25 PM PDT Station ID: [id number]
== END 2024-04-02 12:02 | disposition home or self-care (01) ==
LOC: DI 12:01
PROVIDERS: ATTEND Physician Assistant Medical
DX: R93.41 Abnormal radiologic findings on diagnostic imaging of renal pelvis, ureter, or bladder (principal); N13.30 Unspecified hydronephrosis; R59.0 Localized enlarged lymph nodes; K57.30 Diverticulosis of large intestine without perforation or abscess without bleeding
CPT/HCPCS: 74177; Q9963; Q9967

== ENCOUNTER 2024-04-27 06:23 | Day surgery (SDC) | payer MEDICARE, OTHER ==
[~2024-04-27 06:23] MED LIST: ceFAZolin 2 GM VIAL ONE
[2024-04-27] MEDS: LACTATED RINGERS 1,000 ML IV ONE ×2 (06:49→08:37)
[2024-04-27] MEDS ORDERED: PROPOFOL 200 MG/20 ML VIAL IVP ONE (06:55)
[2024-04-27] MEDS ORDERED: LIDOCAINE-PF 2% 10 ML AMP SUBQ ONE (06:55)
[2024-04-27] MEDS ORDERED: fentaNYL 100 MCG/2 ML VIAL ONE (06:59)
[2024-04-27] MEDS ORDERED: MIDAZOLAM 2 MG/2 ML VIAL ONE (06:59)
--- NOTE | 2024-04-27 07:05 | ANESTHESIA ---
Pre-Anesthesia VS, & Labs - Diagnosis bladder tumor - Procedure cysto, turbt, possible left ureteral stent Vital Signs: Temp Pulse Resp BP Pulse Ox O2 Flow Rate 36.5 C 81 20 168/88 H 97 04/27/24 06:38 04/27/24 06:38 04/27/24 06:38 04/27/24 06:38 04/27/24 06:38 Height: 5 ft 7 in Weight (kg): 81.5 kg Body Mass Index: 28.1 BMI Classification: Overweight - NPO >8 hours - Lab Results Lab results reviewed: Yes Home Medications and Allergies Home Medications: Ambulatory Orders Albuterol Sulf [Ventolin Hfa Inhaler] 1 - 2 puffs INH Q4HR PRN 04/22/24 Furosemide [Lasix] 20 mg PO DAILY 04/22/24 Triamcinolone 0.5% Cream [Kenalog 0.5% Cream] 1 applic TOP BID PRN 04/22/24 dilTIAZem HCL [Diltiazem 24Hr ER] 180 mg PO DAILY 04/22/24 Telmisartan [Micardis] 40 mg PO DAILY 05/11/16 Lactobacillus Combination No.4 [Probiotic] 1 each PO DAILY 08/24/21 Albuterol Sulf [Ventolin Hfa Inhaler] 1 - 2 puffs INH Q4HR PRN 04/22/24 Furosemide [Lasix] 20 mg PO DAILY 04/22/24 Triamcinolone 0.5% Cream [Kenalog 0.5% Cream] 1 applic TOP BID PRN 04/22/24 dilTIAZem HCL [Diltiazem 24Hr ER] 180 mg PO DAILY 04/22/24 Allergies/Adverse Reactions: Allergies Allergy/AdvReac Type Severity Reaction Status Date / Time No Known Drug Allergies Allergy Verified 04/22/24 12:41 Anes History & Medical History - Anesthetic History Anesthesia Complications: reports: No previous complications - Medical History Cardiovascular: reports: Hypertension (no meds this am) Pulmonary: reports: Emphysema Gastrointestinal: reports: Colon polyps Urinary: reports: Other Musculoskeletal: reports: Osteoarthritis Endocrine/Autoimmune: reports: None Skin: reports: Eczema Smoking Status: Current every day smoker Psychosocial: reports: No issues indicated - Surgical History General: reports: Colonoscopy, Other Orthopedic: reports: Knee replacement Results - EKG Results EKG Comparison: Reviewed EKG Exam General: Alert, Oriented x3 Dental: WNL Mouth Openin Fingerbreadth Neck Mobility: Normal Mallampati classification: II Thyromental Distance: 4-6 cm Respiratory: Lungs clear Cardiovascular: Regular rate Plan Anesthesia Type: General Consent for Procedure(s) Verified and Reviewed: Yes Code Status: Attempt Resuscitation ASA classification: 2-Mild systemic disease Is this case an emergency?: No
[2024-04-27] MEDS ORDERED: MORPHINE 2 MG/ML CARPUJECT IVP PRN (07:06)
[2024-04-27] MEDS ORDERED: ePHEDrine 50 MG/ML VIAL IVP PRN (07:06)
[2024-04-27] MEDS ORDERED: ONDANSETRON 4 MG/2 ML VIAL IVP PRN ×2 (07:06→08:57)
[2024-04-27] MEDS ORDERED: NALOXONE 0.4 MG/ML VIAL IVP PRN (07:06)
[2024-04-27] MEDS ORDERED: METOCLOPRAMIDE 10 MG/2 ML VIAL IVP PRN (07:06)
[2024-04-27] MEDS ORDERED: fentaNYL 100 MCG/2 ML VIAL IVP PRN (07:06)
[2024-04-27] MEDS ORDERED: ATROPINE ABBOJECT 1 MG/10 ML SYRINGE IVP PRN (07:06)
[2024-04-27] MEDS ORDERED: HYDROmorphone 0.5 MG/0.5 ML SYRINGE IVP PRN (07:06)
[2024-04-27] MEDS ORDERED: LIDOCAINE 2% URO-JET 5 ML SYRINGE UR ONE ×2 (07:22→07:59)
[2024-04-27] MEDS ORDERED: iohexoL-240 10 ML VIAL IVP ONE (07:22)
[2024-04-27] MEDS ORDERED: DEXAMETHASONE 4 MG/ML VIAL ONE (07:49)
[2024-04-27] MEDS ORDERED: ONDANSETRON 4 MG/2 ML VIAL ONE (07:49)
[2024-04-27] MEDS ORDERED: LACTATED RINGERS 1,000 ML IV SCH (08:00)
[2024-04-27] MEDS: LIDOCAINE 2% URO-JET 5 ML SYRINGE UR ONE (08:12)
[2024-04-27] MEDS: iohexoL-240 10 ML VIAL IVP ONE (08:21)
--- NOTE | 2024-04-27 09:06 | Discharge Plan ---
Discharge Plan Problem Reviewed?: Yes Disposition: Home, Self Care Condition: Good Prescriptions: Docusate Sodium 100Mg Capsule [Colace 100Mg Capsule] 100 mg PO DAILY #14 cap oxyBUTYnin chloride [Oxybutynin Chloride] 5 mg PO TID PRN #20 tab PRN Reason: Bladder Spasms oxyCODONE [Roxicodone] 5 mg PO Q4H PRN #10 tablet PRN Reason: Pain Diet: Regular Activity Restrictions: Additional Comments (as instructed) Shower Restrictions: No Driving Restrictions: No Instruction Topics: Transureth Bladder Tumor Resect Dc, Stents Ureteral, Catheter Bag Urinary Empty Clean, Leg Bag Care Dc Additional Instructions or Follow Up instructions: You have 2 follow-up appointments. Please come to Dr. Avila's office on May 01 at 215pm for catheter removal You will then follow-up with Dr. Avila on May 07 at 3:30 PM for pathology discussion No Smoking: If you smoke, Please STOP! Call for help. Follow-up with: Duong Avila MD [Provider Admit Priv/Credential] -
--- NOTE | 2024-04-27 09:12 | OPERATIVE REPORT ---
Operative Report - General Procedure Date: 04/27/24 Planned Procedure: Cystoscopy, TURBT, left ureteral stent Pre-Op Diagnosis: bladder mass, left ureteral obstruction Procedure Performed: Cystoscopy, urethral dilation, transurethral section of bladder tumor 3 cm, left retrograde pyelogram, left ureteral stent Post Op Diagnosis: bladder mass, left ureteral obstruction, meatal stenosis - Procedure Note Primary Surgeon: Austin Anesthesia Provider: AL Duque Anesthesia Technique: General LMA Pathology: bladder mass Estimated Blood Loss (mL): 1 Findings: 3 cm sessile bladder mass with obstruction of left ureteral orifice Narrow urethral meatus Severe hydroureteronephrosis with tortuosity from the UVJ on the left Complications: none - Other Other Information/Narrative: After informed consent was obtained the patient was brought to the OR and laid in the supine position. The patient was anesthetized per anesthesia protocols and prepped draped in usual sterile fashion in the dorsolithotomy position. A formal timeout was performed reconfirmed the patient, procedure and laterality. We noted he had a narrow urethral meatus and so a Uro-Jet was placed and then this was dilated up from 12 Beninese to 30 Beninese. A 26 Beninese resectoscope was then advanced into the urinary bladder. He had a moderately obstructing prostate with no significant median lobe. His bladder was inspected and full and he was noted to have a sessile mass approximately 3 cm in size which was covering his left hemitrigone extending posteriorly to the back wall of the bladder and slightly laterally to the left wall the bladder. His UO could not be identified the left. We could see his right UO clearly. Using loop electrocautery and the bipolar setting we resected this mass from the trigone. A mucosal island was identified as the left UVJ. We resected this mass deep into we believe the muscle. We elected not to do a significantly deep resection at this point to avoid perforation. Spot cautery was used for hemostasis. The specimen chips were sent for analysis. We then removed the resectoscope and placed a 22 Beninese cystoscope. Using a 5 Beninese open-ended catheter with a sensor wire to cannulate the left UVJ a gentle retrograde pyelogram was performed showing a severely hydroureteronephrosic tortuous left ureter up into the kidney with a massively dilated kidney. A G lidewire was required to access the kidney, we then were able to switch that out for a sensor wire over a 5 Beninese ureteral catheter. There was a significant hydronephrotic drip. A 6 Beninese 26 cm stent was placed good curling noted in the kidney and good curling noted in the bladder. We then again used the resectoscope to spot cautery any bleeding areas. We placed a 22 Beninese three-way Frias catheter and he was brought to the PACU on light CBI. We will plan to clamp his catheter and send home today with a catheter. He will follow-up on Saturday for catheter removal. I will see him next week for pathology discussion. Plans for the ureteral stent will be pending on his pathology All counts are correct
[2024-04-27] MEDS: LACTATED RINGERS 100 ML IV ONE (09:15)
[2024-04-27] MEDS ORDERED: HYDROcod/ACETAM 5/325 MG TABLET ONE (09:18)
[2024-04-27] MEDS: HYDROcod/ACETAM 5/325 MG TABLET PO PRN (09:25)
[2024-04-27 09:49] VITALS: BP 160/78; O2SAT 95
--- NOTE | 2024-04-27 10:31 | ANESTHESIA POST OP EVALUATION ---
Anesthesia Post Eval - Post Anesthesia Eval Vitals: Last Vital Signs Temp 36.2 C L 04/27/24 09:41 Pulse 70 04/27/24 09:41 Resp 20 04/27/24 09:41 BP 160/78 H 04/27/24 09:41 Pulse Ox 95 04/27/24 09:41 O2 Flow Rate CV Function Including HR & BP: Stable Pain Control: Satisfactory Nausea & Vomiting: Negative Mental Status: Baseline Respiratory Status: Airway Patent Hydration Status: Satisfactory Anesthesia Complications: None
--- NOTE | 2024-04-27 14:54 | XRAY Report ---
PROCEDURE: OR C-Arm Procedure INDICATIONS: POSSIBLE STENT PLACEMENT FLUORO TIME: 000.3 TECHNIQUE: 3 fluoroscopic intraprocedural images of the left abdomen. COMPARISON: CT abdomen/pelvis 04/02/2024. FINDINGS: Intraprocedural images demonstrate left ureteral catheterization and stent placement. The opacified l eft ureter appears dilated. IMPRESSION: Fluoroscopy was generalized for intraprocedural guidance. Reviewed by: Norbert Ignacio MD on 04/27/2024 2:53 PM PDT Approved by: Norbert Ignacio MD on 04/27/2024 2:53 PM PDT Station ID: [id number]
== END 2024-04-27 06:24 | disposition home or self-care (01) ==
LOC: SDS 06:23
PROVIDERS: ATTEND Urology
PROC: 0T778DZ Dilation of Left Ureter with Intraluminal Device, Via Natural or Artificial Opening Endoscopic (ICD-10-PCS; 2024-04-27)
PROC: 0TBB8ZZ Excision of Bladder, Via Natural or Artificial Opening Endoscopic (ICD-10-PCS; principal; 2024-04-27 07:30)
DX: C67.8 Malignant neoplasm of overlapping sites of bladder (principal); N13.1 Hydronephrosis with ureteral stricture, not elsewhere classified; N40.0 Benign prostatic hyperplasia without lower urinary tract symptoms; J43.9 Emphysema, unspecified; F17.210 Nicotine dependence, cigarettes, uncomplicated; N35.911 Unspecified urethral stricture, male, meatal; I10 Essential (primary) hypertension
CPT/HCPCS: 52235; 52332; A9270; C1758; C2617; J7120; Q9966

== ENCOUNTER 2024-04-30 14:54 | Outpatient (CLI) | payer MEDICARE, OTHER | END 2024-04-30 23:59 | disposition critical access hospital (66) | LOC: EMS 14:54 | DX: R55 Syncope and collapse (principal) | CPT/HCPCS: A0425; A0429 ==

== ENCOUNTER 2024-04-30 15:02 | Emergency (ER) | payer MEDICARE, OTHER ==
[2024-04-30 15:27] LABS: BASOPHILS # (AUTO) 0.1 10^3/uL (0.0-0.1); BASOPHILS % (AUTO) 0.6 %; EOSINOPHILS # (AUTO) 0.2 10^3/uL (0.0-0.7); EOSINOPHILS % (AUTO) 1.5 %; HCT - HEMATOCRIT 38.6 % (42.0-52.0); HGB - HEMOGLOBIN 12.9 g/dL (14.0-18.0); LYMPHOCYTES # (AUTO) 1.1 10^3/uL (1.5-3.5); LYMPHOCYTES % (AUTO) 11.1 %; MEAN CORPUSCULAR HEMOGLOBIN 32.9 pg (27.0-31.0); MEAN CORPUSCULAR HGB CONC 33.4 g/dL (32.0-36.0); MEAN CORPUSCULAR VOLUME 98.5 fL (80.0-94.0); MEAN PLATELET VOLUME 9.3 fL (7.4-11.4); MONOCYTES # (AUTO) 0.9 10^3/uL (0.0-1.0); NEUTROPHILS # (AUTO) 7.9 10^3/uL (1.5-6.6); NEUTROPHILS % (AUTO) 77.5 %; PLT - PLATELET COUNT 173 10^3/uL (130-450); RED BLOOD COUNT 3.92 10^6/uL (4.70-6.10); RED CELL DISTRIBUTION WIDTH 12.5 % (12.0-15.0); WHITE BLOOD COUNT 10.2 x10^3/uL (4.8-10.8)
[2024-04-30 15:46] LABS: MAGNESIUM 1.5 mg/dL (1.7-2.3)
--- NOTE | 2024-04-30 15:46 | ED Physician Documentation ---
History of Present Illness - Stated complaint Stated Complaint: SYNCOPE - Chief complaint Chief Complaint: Neuro - Additonal information Additional information: 74-year-old male with history of hypertension, emphysema, COPD, tobacco dependence presents emergency department for syncopal episode x 2. Patient just recently had a TURP procedure with Dr. Avila today he went in to have his Frias catheter removed and unfortunately had a syncopal episode. Patient wanted members passing out once but Dr. Avila reports he passed out twice. Patient reports that it is not very normal for him to have syncopal episodes with procedures. He has had history of arthroplasty in the past and had syncopal episode with these follow-up appointments as well. Patient denies any head pain or neck pain no nausea or vomiting no recent illnesses no dizziness no chest pain no shortness of breath. PD PAST MEDICAL HISTORY - Past Medical History Past Medical History: Yes Cardiovascular: Hypertension Respiratory: Emphysema Neuro: None Endocrine/Autoimmune: None GI: Colon polyps : Other HEENT: Chronic vision loss Psych: None Musculoskeletal: Osteoarthritis Derm: Eczema - Past Surgical History Past Surgical History: Yes General: Colonoscopy, Other Ortho: Knee replacement - Present Medications Home Medications: Ambulatory Orders Medication Instructions Recorded Confirmed Telmisartan [Micardis] 40 mg PO DAILY 05/11/16 04/22/24 Lactobacillus Combination No.4 1 each PO DAILY 08/24/21 04/22/24 [Probiotic] Albuterol Sulf [Ventolin Hfa 1 - 2 puffs INH Q4HR PRN 04/22/24 04/27/24 Inhaler] Furosemide [Lasix] 20 mg PO DAILY 04/22/24 04/22/24 Triamcinolone 0.5% Cream [Kenalog 1 applic TOP BID PRN 04/22/24 04/22/24 0.5% Cream] dilTIAZem HCL [Diltiazem 24Hr ER] 180 mg PO DAILY 04/22/24 04/22/24 Docusate Sodium 100Mg Capsule 100 mg PO DAILY #14 cap 04/27/24 [Colace 100Mg Capsule] oxyBUTYnin chloride [Oxybutynin 5 mg PO TID PRN #20 tab 04/27/24 Chloride] oxyCODONE [Roxicodone] 5 mg PO Q4H PRN #10 tablet 04/27/24 - Allergies Allergies/Adverse Reactions: Allergies Allergy/AdvReac Type Severity Reaction Status Date / Time No Known Drug Allergies Allergy Verified 04/22/24 12:41 - Social History Does the pt smoke?: No Smoking Status: Never smoker Does the pt drink ETOH?: No ETOH Use: None Does the pt have substance abuse?: No - Immunizations Immunizations are current?: Yes - POLST Patient has POLST: No PD ED PE NORMAL - Vitals Vital signs reviewed: Yes - General General: Alert and oriented X 3, No acute distress, Well developed/nourished - HEENT HEENT: Atraumatic, PERRL - Neck Neck: No bony TTP, C-Spine cleared by NEXUS criteria - Cardiac Cardiac: RRR - Respiratory Respiratory: No respiratory distress - Abdomen Abdomen: Normal bowel sounds, Soft, Non tender, No organomegaly - Back Back: No CVA TTP - Derm Derm: Normal color, Warm and dry, No rash - Neuro Neuro: Alert and oriented X 3, loader 2-12 intact, No motor deficit, No sensory deficit, Normal speech Eye Opening: Spontaneous Motor: Obeys Commands Verbal: Oriented GCS Score: 15 Results - Vitals Vitals: Vital Signs - 24 hr 04/30/24 04/30/24 15:06 17:35 Temperature 98 C H 37.2 C Heart Rate 65 71 Respiratory 20 22 Rate Blood Pressure 139/65 H 132/81 H O2 Saturation 99 96 Oxygen O2 Source Room air - EKG (time done) 1506 EKG releavant findings:: EKG personally interpreted by author of this note. Relevant findings are: Rate: Rate (enter#) (58) Rhythm: NSR [place]: Normal QRS: Normal Ischemia: Normal ST segments Computer interpretation: Agree with computer - Labs Labs: Laboratory Tests 04/30/24 04/30/24 04/30/24 15:24 15:24 16:31 WBC 10.2 RBC 3.92 L Hgb 12.9 L Hct 38.6 L MCV 98.5 H MCH 32.9 H MCHC 33.4 RDW 12.5 Plt Count 173 MPV 9.3 Neut # (Auto) 7.9 H Lymph # (Auto) 1.1 L [place] # (Auto) 0.9 Eos # (Auto) 0.2 Baso # (Auto) 0.1 Absolute Nucleated RBC 0.00 Nucleated RBC % 0.0 Sodium 128 L Potassium 3.6 Chloride 95 L Carbon Dioxide 25 Anion Gap 8.0 BUN 19 Creatinine 1.5 H Estimated GFR (MDRD) 46 L Glucose 91 Calcium 8.5 Magnesium 1.5 L Total Bilirubin 1.9 H AST 20 ALT 14 Alkaline Phosphatase 37 L Troponin I High Sens 7.6 Total Protein 6.8 Albumin 3.5 Globulin 3.3 Albumin/Globulin Ratio 1.1 Lipase < 10 L Urine Color STRAW Urine Clarity SL. CLOUDY Urine pH 7.0 Ur Specific [place] 1.015 Urine Protein 30 H Urine Glucose (UA) NEGATIVE Urine Ketones TRACE Urine Occult Blood LARGE H Urine Nitrite NEGATIVE Urine Bilirubin NEGATIVE Urine Urobilinogen 0.2 (NORMAL) Ur Leukocyte Esterase MODERATE H Urine RBC TNTC H Urine WBC >25 H Ur Squamous Epith Cells NONE SEEN Urine Bacteria Rare Ur Microscopic Review INDICATED Urine Culture Comments INDICATED - Rads (name of study) Head CT without Relevant Findings:: Final report received, EMP independent interpretation of test, Other (No acute intracranial hemorrhages or abnormalities.) PD Medical Decision Making - ED course ED course: Given history, exam and workup, low suspicion for HF, ICH (no trauma, headache), seizure (no witnessed seizure like activity, no postictal period, tongue laceration, bladder incontinence), stroke (no focal neuro deficits), HOCM (no murmur, family history of sudden ), ACS (neg troponin, no anginal pain), aortic dissection (no chest pain), malignant arrhythmia on ekg or any family history of sudden , or GI bleed (stable hgb). Low suspicion for PE given normal vital signs, absence of chest pain or dyspnea, no evidence of DVT, no recent surgery/immobilization. Based on [place] syncope rule, patient is low risk and well appearing here, plan to discharge the patient home with PCP follow up. Departure - Departure Disposition: 01 Home, Self Care Clinical Impression: Vasovagal episode Instructions: ED Syncope Vasovagal Comments: Thank you for trusting us with your care. I believe that you had an episode of a vasovagal at Dr. Avila's office. Please follow-up with him outpatient at your next scheduled appointment. Your sodium today was 128 which appears to be your baseline. Please follow-up with your primary care provider and let them know about today's ER visit. We have sent your urine to the lab for cultures and Dr. Avila will call you if you need to start antibiotics. Wishing you a sp eedy recovery come back in if this happens again at home or if you start to develop any chest pain shortness of breath or any other concerning emergent symptoms. Forms: PCP List Discharge Date/Time: 04/30/24 17:44
--- NOTE | 2024-04-30 15:49 | CT Report ---
PROCEDURE: Head WO INDICATIONS: syncope, hit head TECHNIQUE: Noncontrast 4.5 mm thick angled axial sections acquired from the foramen magnum to the vertex. For r adiation dose reduction, the following was used: automated exposure control, adjustment of mA and/or kV according to patient size. COMPARISON: None. FINDINGS: Image quality: Excellent. CSF spaces: Basal cisterns are patent. No extra-axial fluid collections. Ventricles are normal in size and shape. Brain: No midline shift. No intracranial masses or hemorrhage. [place]-white matter interface is norm al. Intracranial carotid calcifications. Age-related volume loss and small vessel ischemic change. Skull and face: Calvarium and visualized facial bones are intact, without suspicious lesions. Sinuses: Visualized sinuses and mastoids are clear. IMPRESSION: No acute intracranial pathology. Reviewed by: Norman Escoto MD on 04/30/2024 3:48 PM PDT Approved by: Norman Escoto MD on 04/30/2024 3:48 PM PDT Station ID: [id number]
[2024-04-30 15:52] LABS: ALBUMIN 3.5 g/dL (3.2-5.5); ALBUMIN/GLOBULIN RATIO 1.1 (1.0-2.2); ALKALINE PHOSPHATASE 37 IU/L (42-121); ALT ALANINE AMINOTRANSFERASE 14 IU/L (10-60); AST ASPARTATE AMINOTRANSFERASE 20 IU/L (10-42); BILIRUBIN,TOTAL 1.9 mg/dL (0.2-1.0); BUN - BLOOD UREA NITROGEN 19 mg/dL (6-20); CALCIUM 8.5 mg/dL (8.5-10.3); CARBON DIOXIDE - CO2 25 mmol/L (21-32); CHLORIDE 95 mmol/L (101-111); CREATININE 1.5 mg/dL (0.6-1.3); GFR - MDRD 46 (>89); GLUCOSE 91 mg/dL (74-104); POTASSIUM 3.6 mmol/L (3.5-4.5); SODIUM 128 mmol/L (135-145); TOTAL PROTEIN 6.8 g/dL (6.4-8.9)
[2024-04-30 15:53] LABS: LIPASE < 10 U/L (11-82)
[2024-04-30 15:56] LABS: TROPONIN I HIGH SENSITIVITY 7.6 ng/L (2.3-19.7)
[2024-04-30] MEDS: MAGNESIUM OXIDE 400 MG TABLET PO STA (16:04)
[2024-04-30 16:41] LABS: BILIRUBIN,URINE NEGATIVE (NEGATIVE); CLARITY,URINE SL. CLOUDY (CLEAR); GLUCOSE, URINE (UA) NEGATIVE (NEGATIVE); KETONES,URINE (UA) TRACE mg/dL (NEGATIVE); LEUKOCYTE ESTERASE, URINE MODERATE (NEGATIVE); NITRITE,URINE NEGATIVE (NEGATIVE); OCCULT BLOOD,URINE LARGE (NEGATIVE); PROTEIN,URINE 30 mg/dL (NEGATIVE); UROBILINOGEN,URINE 0.2 (NORMAL) E.U./dL (NORMAL)
[2024-04-30 16:47] LABS: BACTERIA,URINE Rare /HPF (None Seen); RBC,URINE TNTC /HPF (0-5); SQUAMOUS EPITHELIAL CELL,UR NONE SEEN (<= Few); WBC,URINE >25 /HPF (0-3)
[2024-04-30 17:42] VITALS: BP 132/81; O2SAT 96
== END 2024-04-30 17:44 | disposition home or self-care (01) ==
LOC: EDUNIT# → ED 15:02
DX: R55 Syncope and collapse (principal)
CPT/HCPCS: 36415; 70450; 80053; 81001; 83690; 83735; 84484; 85025; 87086; 93005; 99283; 99284; A9270; 81003

== ENCOUNTER 2024-05-20 12:36 | Outpatient (CLI) | payer MEDICARE, OTHER | END 2024-05-20 12:37 | disposition home or self-care (01) | LOC: DI 12:36 | PROVIDERS: ATTEND Physician Assistant Medical | DX: R60.9 Edema, unspecified (principal) | CPT/HCPCS: 93307 ==

== ENCOUNTER 2024-05-22 07:41 | Day surgery (SDC) | payer MEDICARE, OTHER ==
[2024-05-22] MEDS: LACTATED RINGERS 1,000 ML IV ONE (07:46)
[2024-05-22] MEDS ORDERED: fentaNYL 100 MCG/2 ML VIAL ONE (09:26)
[2024-05-22] MEDS ORDERED: ROCURONIUM 50 MG/5 ML VIAL ONE (09:26)
[2024-05-22] MEDS ORDERED: PROPOFOL 200 MG/20 ML VIAL IVP ONE (09:26)
--- NOTE | 2024-05-22 09:41 | ANESTHESIA ---
Pre-Anesthesia VS, & Labs - Diagnosis bladder cancer, ureteral obstruction - Procedure TURBT, stent exchange Vital Signs: Temp Pulse Resp BP Pulse Ox O2 Flow Rate 36.3 C L 79 22 136/95 H 98 05/22/24 07:47 05/22/24 07:47 05/22/24 07:47 05/22/24 07:47 05/22/24 07:47 Height: 5 ft 7 in Weight (kg): 79.3 kg Body Mass Index: 27.3 BMI Classification: Overweight - NPO >8 hours Home Medications and Allergies Telmisartan [Micardis] 40 mg PO DAILY 05/11/16 Lactobacillus Combination No.4 [Probiotic] 1 each PO DAILY 08/24/21 Albuterol Sulf [Ventolin Hfa Inhaler] 1 - 2 puffs INH Q4HR PRN 04/22/24 Furosemide [Lasix] 20 mg PO DAILY 04/22/24 dilTIAZem HCL [Diltiazem 24Hr ER] 180 mg PO DAILY 04/22/24 Allergies/Adverse Reactions: Allergies Allergy/AdvReac Type Severity Reaction Status Date / Time No Known Drug Allergies Allergy Verified 05/21/24 12:58 Anes History & Medical History - Anesthetic History Anesthesia Complications: reports: No previous complications - Medical History Cardiovascular: reports: Hypertension Pulmonary: reports: Emphysema Gastrointestinal: reports: Colon polyps Urinary: reports: Other Neuro: reports: None Musculoskeletal: reports: Osteoarthritis Endocrine/Autoimmune: reports: None Blood Disorders: reports: None Skin: reports: Eczema Smoking Status: Current every day smoker Psychosocial: reports: Alcohol (daily, at least 6 beers) History of Cancer?: Yes (bladder) - Surgical History General: reports: Colonoscopy, Other Orthopedic: reports: Knee replacement Exam General: Alert, Oriented x3, Cooperative, No acute distress Dental: WNL Mouth Openin Fingerbreadth Neck Mobility: Normal Mallampati classification: III Thyromental Distance: 4-6 cm Mental/Cognitive Status: Alert/Oriented X3, Normal for patient Plan Anesthesia Type: General Consent for Procedure(s) Verified and Reviewed: Yes Code Status: Attempt Resuscitation ASA classification: 3-Severe systemic disease Is this case an emergency?: No
[2024-05-22] MEDS ORDERED: MORPHINE 2 MG/ML CARPUJECT IVP PRN (09:46)
[2024-05-22] MEDS ORDERED: ATROPINE ABBOJECT 1 MG/10 ML SYRINGE IVP PRN (09:46)
[2024-05-22] MEDS ORDERED: fentaNYL 100 MCG/2 ML VIAL IVP PRN (09:46)
[2024-05-22] MEDS ORDERED: ONDANSETRON 4 MG/2 ML VIAL IVP PRN ×2 (09:46→10:39)
[2024-05-22] MEDS ORDERED: NALOXONE 0.4 MG/ML VIAL IVP PRN (09:46)
[2024-05-22] MEDS ORDERED: HYDROmorphone 0.5 MG/0.5 ML SYRINGE IVP PRN (09:46)
[2024-05-22] MEDS ORDERED: LIDOCAINE 2% URO-JET 5 ML SYRINGE UR ONE (09:53)
[2024-05-22] MEDS ORDERED: LACTATED RINGERS 1,000 ML IV SCH (10:00)
[2024-05-22] MEDS ORDERED: MIDAZOLAM 2 MG/2 ML VIAL ONE (10:07)
[2024-05-22] MEDS ORDERED: HYDROmorphone 1 MG/ML CARPUJECT ONE (10:21)
[2024-05-22] MEDS ORDERED: DEXAMETHASONE 4 MG/ML VIAL ONE (10:24)
[2024-05-22] MEDS ORDERED: ONDANSETRON 4 MG/2 ML VIAL ONE (10:24)
[2024-05-22] MEDS ORDERED: HYDROcod/ACETAM 5/325 MG TABLET PO PRN (10:39)
[2024-05-22] MEDS: LACTATED RINGERS 200 ML IV ONE (10:43)
--- NOTE | 2024-05-22 10:44 | Discharge Plan ---
Discharge Plan Problem Reviewed?: Yes Disposition: Home, Self Care Condition: Stable Prescriptions: Docusate Sodium 100Mg Capsule [Colace 100Mg Capsule] 100 mg PO BID #28 cap HYDROcod/ACETAM 5/325 [[place] 5/325] 1 tab PO Q4H PRN #10 tablet PRN Reason: Pain Diet: Regular Activity Restrictions: as instructed Shower Restrictions: No Driving Restrictions: No Instruction Topics: Catheter Bag Urinary Empty Clean Additional Instructions or Follow Up instructions: Your appointment with Dr. Avila will be moved from its current time on May 26 at 3:15 PM and will be moved to May 27 at 9 AM. Please arrive 15 minutes early. Please ensure that you have a hearty breakfast that morning. Make sure you are well-hydrated. You will be asked to stay at the appointment for several hours to ensure you do not have another vasovagal event No Smoking: If you smoke, Please STOP! Call for help. Follow-up with: Duong Avila MD [Provider Admit Priv/Credential] -
--- NOTE | 2024-05-22 10:49 | OPERATIVE REPORT ---
Operative Report - General Procedure Date: 05/22/24 Planned Procedure: Cystoscopy, transurethral resection of bladder tumor, left ureteral stent exchange Pre-Op Diagnosis: bladder cancer, left ureteral obstruction Procedure Performed: Cystoscopy, urethral dilation, transurethral resection of bladder tumor 2cm , left ureteral stent exchange Post Op Diagnosis: bladder cancer, left ureteral obstruction, urethral stricture - Procedure Note Primary Surgeon: Austin Anesthesia Provider: AL Lopez Anesthesia Technique: General LMA Pathology: bladder cancer Estimated Blood Loss (mL): 1 Findings: Edematous left hemitrigone and lateral wall of bladder without any rosie papillary lesions seen. Stent exchanged Complications: Frias catheter placed given stricture dilation - Other Other Information/Narrative: After informed sent was obtained the patient brought the OR and laid in the supine position. The patient was anesthetized per anesthesia protocols and prepped draped in the usual sterile fashion in the dorsolithotomy position. 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 His urethra itself was quite narrow. A 26 Albanian resectoscope was advanced into the urinary bladder. He had a mildly obstructing prostate. There were no papillary lesions seen in the bladder but his left hemitrigone prior resection site was slightly edematous. His stent was emanating from this area. Using a bipolar loop electrocautery we resected a 2 cm segment of this prior edematous tissue for a reTURBT section. This was sent for analysis. We placed a wire next to the stent and it did feel somewhat tight. Given that this area could close up again from cancer regrowth we elected to replace the stents and so under fluoroscopic guidance his old stent was grasped and removed and a new 6 Albanian 24 cm stent was placed good curling of the kidney and good curling noted in the bladder. Spot cautery used for hemostasis. Given the urethral strictures a 20 [place]ian two-way Frias catheter was placed after Uro-Jet This concluded the procedure and the patient tolerated the future well. He was brought to PACU without further incident. He will follow-up in 1 week's time for pathology discussion and catheter removal
[2024-05-22] MEDS: LIDOCAINE 2% URO-JET 5 ML SYRINGE UR ONE (10:54)
--- NOTE | 2024-05-22 11:08 | ANESTHESIA POST OP EVALUATION ---
Anesthesia Post Eval - Post Anesthesia Eval Vitals: Last Vital Signs Temp 36.7 C 05/22/24 10:59 Pulse 78 05/22/24 10:59 Resp 21 05/22/24 10:59 BP 139/71 H 05/22/24 10:59 Pulse Ox 97 05/22/24 10:59 O2 Flow Rate CV Function Including HR & BP: Stable Pain Control: Satisfactory Nausea & Vomiting: Negative Mental Status: Baseline Respiratory Status: Airway Patent Hydration Status: Satisfactory Anesthesia Complications: None
[2024-05-22 11:31] VITALS: BP 138/82; O2SAT 98
--- NOTE | 2024-05-22 16:54 | XRAY Report ---
PROCEDURE: OR C-Arm Procedure INDICATIONS: Ureteral Stent Exchange FLUORO TIME: 000.1 TECHNIQUE: Fluoroscopic guidance utilized for a left-sided ureteral stent exchange. COMPARISON: None. FINDINGS: Left-sided ureteral stent projects over the kidney. IMPRESSION: Fluoroscopic guidance for a left-sided ureteral stent placement. Reviewed by: Juan José Harrison MD on 05/22/2024 4:53 PM PDT Approved by: Juan José Harrison MD on 05/22/2024 4:53 PM PDT Station ID: [id number]
== END 2024-05-22 07:42 | disposition home or self-care (01) ==
LOC: SDS 07:41
PROVIDERS: ATTEND Urology
PROC: 0TBB8ZZ Excision of Bladder, Via Natural or Artificial Opening Endoscopic (ICD-10-PCS; principal; 2024-05-22 09:15)
PROC: 0TP98DZ Removal of Intraluminal Device from Ureter, Via Natural or Artificial Opening Endoscopic (ICD-10-PCS; 2024-05-22 09:15)
PROC: 0T778DZ Dilation of Left Ureter with Intraluminal Device, Via Natural or Artificial Opening Endoscopic (ICD-10-PCS; 2024-05-22 09:15)
DX: C67.0 Malignant neoplasm of trigone of bladder (principal); C67.6 Malignant neoplasm of ureteric orifice; N13.5 Crossing vessel and stricture of ureter without hydronephrosis; N40.1 Benign prostatic hyperplasia with lower urinary tract symptoms; R35.0 Frequency of micturition; R39.15 Urgency of urination; J43.9 Emphysema, unspecified; F17.200 Nicotine dependence, unspecified, uncomplicated; I10 Essential (primary) hypertension
CPT/HCPCS: 52235; 52332; C2617; J1170; J7120

== ENCOUNTER 2024-08-26 10:36 | Inpatient (IN) ==
--- NOTE | 2024-08-26 11:11 | ED Physician Documentation ---
History of Present Illness Stated complaint Stated Complaint: LOW SODIUM Chief complaint Chief Complaint: General Additonal information Additional information: 74-year-old male currently undergoing treatment/chemotherapy for bladder cancer with mets under the care of Dr. Schwartz. He went in today for routine chemo and they did baseline labs and he was found to be hyponatremic, sodium level was 120 and they repeated sodium level and it was dropped again to 117. Patient was told come to the emergency department for likely hospital admission. Patient reports that he is still voiding adequately he says is hard to know what his baseline is since being diagnosed with bladder cancer also reports that he has some fatigue and nausea but he says this is hard to tell if this is because of his hyponatremia versus due to the chemotherapy Meds/Allgy Home Medications Ambulatory Orders Medication Instructions Recorded Confirmed lactobacillus combination no.4 3 1 ea PO DAILY 08/24/21 08/11/24 billion cell capsule (Probiotic) furosemide 20 mg tablet 20 mg PO DAILY 04/22/24 08/11/24 albuterol sulfate 90 mcg/actuation See Rx Instructions inhalation Q4H 08/04/24 08/11/24 aerosol inhaler (Ventolin HFA) PRN diltiazem HCl 240 mg 240 mg PO QAM #90 caps 08/04/24 08/11/24 capsule,extended release 24 hr (Cardizem CD) telmisartan 40 mg tablet 40 mg PO QDAY 08/04/24 08/11/24 Allergies Allergies Allergy/AdvReac Type Severity Reaction Status Date / Time No Known Drug Allergies Allergy Verified 08/26/24 11:06 [facility] Medical History Medical History (Updated 08/26/24 @ 11:30 by Anna Summers DNP) Hernia Surgical History Surgical History History of bilateral knee replacement History of cystoscopy History of knee replacement Family History Family History (Updated 06/25/24 @ 11:58 by Kristen Banda MA) Brother No problems noted. Social History Social History (Updated 08/26/24 @ 11:05 by Lisa Lockwood RN) Smoking Status: Current every day smoker Number of Years Smoked: 50 How many cigarettes a day do you smoke? (20 cigarettes=1 Pk): 30 Second hand tobacco smoke exposure: Yes Do you dip or chew tobacco?: No Do you vape?: No Patient requests smoking cessation consult: No Initiate information on smoking cessation: No Living arrangement: At home Marital Status: Living Condition: With spouse/s.o. Support Person: Yes Relationship: Physical Activity: Walking Level: Independent Do you feel safe in your home environment?: Yes Suffered physical, verbal, emotional, or financial abuse?: No History of Abuse: No ETOH Use: None and Beer Frequency: Daily Number of Amount/day: 8 Substance Use: denies use POLST Patient has POLST: No Exam Constitutional abnormal general appearance (disheveled), (chronically ill) and (frail appearing), no apparent distress, average body habitus, no limitations and alert HENMT normocephalic and head/scalp atraumatic Eyes PERRL Lymph no lymphadenopathy noted and no lymphedema noted Chest inspection of chest normal Respiratory breath sounds equal bilaterally Cardiovascular no edema Extremities normal to inspection Results Vitals Vitals: Vital Signs - 24 hr 08/26/24 10:58 08/26/24 11:12 Temperature 36.0 C L 36.5 C Temperature Source Oral Pulse Rate 74 74 Respiratory Rate 20 20 Blood Pressure 127/65 149/78 H O2 Saturation 97 96 O2 Source Room air Room air Pain Intensity 0 0 Oxygen O2 Source Room air PD Medical Decision Making ED course Complexity details: reviewed old records ED course: 74-year-old male presents emergency department for hyponatremia. Sodium level dropped from 1 20-1 17 today. Serum osmolality and urine osmolalities have been ordered. I spoke with Ankita Dahl, hospitalist at 11:22 AM who has graciously agreed to admit the patient for hyponatremia further workup investigation of low sodium. Patient is agreeable to stay. Port accessed from [facility]. Discharge Plan Discharge Patient Disposition: 66 [facility] DC/Xfer Condition: Good Clinical Impression: Acute hyponatremia Prescriptions: No Action Probiotic 1 EACH capsule 1 ea PO DAILY furosemide 20 MG tablet 20 mg PO DAILY telmisartan 40 mg tablet 40 mg PO QDAY albuterol sulfate [Ventolin HFA] 90 mcg/actuation HFA aerosol inhaler See Rx Instructions inhalation Q4H PRN Rx Instructions: 1-2 inhaled every 4 hours PRN; diltiazem HCl [Cardizem CD] 240 mg capsule,extended release 24hr 240 mg PO QAM Qty: 90 3RF Rx Instructions: for blood pressure Print Language: Indonesian
[2024-08-26] MEDS: SODIUM CHLORIDE 3% HYPERTONIC 100 ML IV SCH (11:57)
--- NOTE | 2024-08-26 12:08 | HISTORY & PHYSICAL EXAMINATION ---
Chief Complaint Chief Complaint Chief Complaint: feels tired, no appetite and sodium low History of Present Illness Admitted From Admitted From:: [facility] [place] History Obtained From Records Reviewed: Expanse History obtained from: patient and ER MD Exam Limitations: none History of Present Illness HPI Comment/Other: Pleasant 74-year-old male who is a current smoker and has COPD, hypertension, hyperlipidemia developed abdominal cramping this summer. Final evaluation showed him to have stage Casey bladder cancer and he is on Pembrolizumab + Enfortumab and has had 2 cycles. . He was seen in the [facility] clinic today and was complaining of decreased appetite, no taste in his mouth, poor p.o. intake. He was weak, tired, and complaining of dizziness. He did not have any fever, chills, cough, nausea, diarrhea, abdominal pain. He does have a stent to the left ureter because of the hydronephrosis from the bladder. He feels like he does not have any significant pain. He is just "wiped out". Because he knows he is not eating very much, he has doubled his water intake. He drinks about 3 bottles a day. Each of the bottles is 12 or 16 ounces. He Continues to take his Lasix for his pedal edema on a daily basis. Past medical history is notable for the fact that his had chronic hyponatremia since 2018. Prior to that his sodium was normal. The only difference between a normal sodium and a low sodium was that he cut out all salt from his diet. He was told that it would be a good thing since he was older, and had blood pressure issues. His sodium ranges between 127-130. No workup has been done. Other than noting that he has a low sodium, they make sure that he gets his sodium level checked every 6 months. He is on Lasix for chronic leg edema. An echocardiogram done in July of this year for his leg edema shows him to have a normal left ventricular ejection fraction. He does not have elevated pulmonary pressures. He does have COPD but is not on oxygen. He does not have a history of alcohol abuse. He is not on an SSRI. He does not have chronic kidney disease. In the Oncology clinic, he was noted to have a low sodium of 120. They sent him to the emergency room and repeat sodium was 117. He says that he is tired all the time but not any more tired than usual. Yesterday was the worst fatigue he has ever had but today he actually felt "just a little bit better". No other systemic complaints. He feels like he has a brain fog but no outright confusion, no slurred speech, no blurred vision. He thought that he would just cancel his chemo for today. And was going to cancel his appointment but the oncology clinic talked him into coming in today to be seen. The emergency room provider has sent labs, but no treatment of the sodium per se. Because treatment of low sodium is a slow process, and he should not be any higher than 123, 24 hours from today. I am placing the patient in at [facility] 2 midnights status since I anticipate it will take us that long to get him to 128 or 130. Meds/Allgy Home Medications Ambulatory Orders Medication Instructions Recorded Confirmed furosemide 20 mg tablet 20 mg PO DAILY 04/22/24 08/26/24 telmisartan 40 mg tablet 40 mg PO QDAY 08/04/24 08/26/24 Lactobacillus acidophilus 10 100 mmu cells PO DAILY 08/26/24 08/26/24 billion cell capsule (Probacap) diltiazem HCl 240 mg capsule,24 240 mg PO DAILY 08/26/24 08/26/24 hr,extended release ondansetron HCl 8 mg tablet 8 mg PO Q8H PRN nausea and vomiting 08/26/24 08/26/24 prochlorperazine maleate 5 mg 5 mg PO Q4H PRN nausea and vomiting 08/26/24 08/26/24 tablet Allergies Allergies Allergy/AdvReac Type Severity Reaction Status Date / Time No Known Drug Allergies Allergy Verified 08/26/24 11:06 [facility] Medical History Medical History (Updated 08/26/24 @ 12:03 by Inna Huerta MD) ACL (anterior cruciate ligament) rupture Dupuytren contracture Hyperlipidemia 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 CT abd w 3 cm mass. TURBT 04/27/24 Stage pT1; cystoscopy 05/22/24 Stage pT2a. Stent placed. PET 05/29/24 w L retroperitoneal and pelvic LN hypermetabolic. Stage CASEY, [id number] urothelial bladder ca. Started on pembro and enfortumab. Has port. Not a candidate for cystectomy due to pelvic adenopathy COPD (chronic obstructive pulmonary disease) FVC, FEV1, FEV1/FVC ratio are reduced indicating airway obstruction. Slow vital capacity reduced. Following bronchodilators there is a significant improvement in FVC. Bilateral lower extremity edema Echo 05/20/24 with LVEF 60-65%, size nml, no valvular heart dz Coronary artery disease Near syncope EMS call 05/2013>[facility], [place] amb report 07/2023 w NSR, one 21 beat episode of 107 Hyponatremia since 2018. 127-130. Hypertension, essential, benign Tobacco abuse 2 ppd for decades History of adenomatous polyp of colon Problem List clean-up per request of Phys. EHR Cmte Hernia Surgical History Surgical History (Updated 08/26/24 @ 12:03 by Inna Huerta MD) H/O arthroscopic knee surgery 08/2010 (R), 09/2010 (L) History of bilateral knee replacement History of cystoscopy History of knee replacement Family History Family History (Updated 08/26/24 @ 17:58 by Inna Huerta MD) Father Heart attack Mother Well adult on routine health check Brother Melanoma of shoulder Brother CAD (coronary artery disease) Atrial fibrillation Sister Well adult on routine health check Son Well adult on routine health check Social History Social History (Updated 08/26/24 @ 11:05 by Lisa Lockwood RN) Smoking Status: Current every day smoker Number of Years Smoked: 50 How many cigarettes a day do you smoke? (20 cigarettes=1 Pk): 30 Second hand tobacco smoke exposure: Yes Do you dip or chew tobacco?: No Do you vape?: No Patient requests smoking cessation consult: No Initiate information on smoking cessation: No Living arrangement: At home Marital Status: Living Condition: With spouse/s.o. Support Person: Yes Relationship: Physical Activity: Walking Level: Independent Do you feel safe in your home environment?: Yes Suffered physical, verbal, emotional, or financial abuse?: No History of Abuse: No ETOH Use: None and Beer Frequency: Daily Number of Amount/day: 8 Substance Use: denies use POLST Patient has POLST: No POLST Status: DNR Review of Systems Constitutional Reports: Fatigue, Malaise, Weakness, Changes in appetite or eating habits, Poor appetite, Weight loss and Change in sleep pattern (Asking for sleeping pill at 1 in the afternoon.); Denies: Night sweats Eyes Reports: Vision loss (Chronic with aging); Denies: Pain or Irritation Ears, nose, mouth, and throat Reports: Hearing loss (Chronic with aging); Denies: Ear pain, Ear discharge, Hearing aids, Change in hearing, Nasal pain, Nose bleeds, Nasal congestion, Nasal obstruction, Mouth pain, Difficulty swallowing, Swelling of lips/tongue, Neck pain or Throat swelling Cardiovascular Reports: Syncope (The past has been worked up and no cause found other than vasovagal syncope) and shortness of breath with exertion (Worse over the last f ew weeks); Denies: Irregular heart rate, chest pain, palpitations or swelling of feet/ankles Respiratory Reports: Shortness of breath (Worse over the last few weeks); Denies: Cough, Sputum production, Change in phlegm color, Wheezing, Apnea, Coughing up blood, Orthopnea or SOB at rest Gastrointestinal Reports: Abdominal distention, Nausea, Poor appetite, Heartburn and Constipation (Last BM was 3 to 4 days ago when he had 1 bout of diarrhea. NPO now wo BM ); Denies: Abdominal pain, Vomiting, Bile emesis, Reinier blood emesis, Coffee grounds in vomit, Diarrhea, Difficulty swallowing, Feeling full early, Change in bowel habits, Painful bowel movements, Rectal bleeding or Rectal pain Genitourinary Denies: Painful urination, Flank pain, Incontinence, Urinary frequency, Urinary urgency, Nocturia, Blood in urine, Genital pain or Urinary dribbling Musculoskeletal Denies: Back pain, Neck pain or Extremity pain Integumentary/Breast Denies: Rash, Itching or Changing lesion Neurological Reports: General weakness; Denies: Headache, Focal weakness, Weakness in extremities, Numbness in extremities, Pre-existing deficit, Lack of coordination, Confusion, Memory problems, Slurred speech or Difficulty communicating thoughts Psychiatric Reports: Depression and Change in sleep pattern (Severe insomnia for the last 3 nights); Denies: Anxiety, Mood swings, Panic attacks or Irritability Endocrine Reports: Fatigue and Cold intolerance; Denies: Excessive urination, Excessive thirst or Polyphagia Hematologic/Lymphatic Reports: Anemia; Denies: Easy bruising, Petechiae, Easy bleeding or Blood clots Allergic/Immunologic Denies: Throat swelling, Tongue swelling or Wheezing Prior Level of Functionality: Still drives to [place] to see his son who is building a new house. Has automatic payment for his bills so he does not really have to actively monitor them. Able to dress himself, feed himself. Exam Exam Cachectic, tanned, gaunt gentleman who looks older than his stated age. Appears fatigued but is comfortable. When I walk in the room he has his arms raised with his hands behind his head as he lays watching TV Constitutional no apparent distress HENMT normocephalic and head/scalp atraumatic Oral mucosa very dry, Bilateral temporal wasting Eyes PERRL, EOMs intact bilaterally and conjunctivae normal Neck/C-Spine supple Lymph no lymphadenopathy noted Chest palpation of chest normal Respiratory breath sounds equal bilaterally, normal respiratory effort and clear to auscultation bilaterally Cardiovascular normal heart rate noted, regular rhythm noted, no gallop, no rub and no murmur Gastrointestinal abdomen soft to palpation, nontender to palpation, nontender to percussion, no hepatosplenomegaly and no masses Diffuse mild distention and bloating that he says is normal for him. Genitourinary no CVA tenderness Back/Pelvis spine normal to inspection, no thoracic spine tenderness and no lumbar spine tenderness Extremities normal to inspection, normal to palpation, no tenderness and full ROM Neurology engineering librarian II-XII intact, no movement abnormality noted, no focal motor deficit noted and no sensory deficits noted Psychiatry oriented x3, thought process normal, cooperative, affect normal and psychomotor activity normal Skin skin color normal (Very tanned in sun exposed areas /mistry's schmidt) and no rash Conclusion/Plan Problem List (1) Acute hyponatremia: Plan: Most likely due to reduction of salt in his diet, worsened by lack of food intake and on top of that, double his usual water intake.He does have a history of vasovagal syncope, and I wonder if he has mild adrenal insufficiency. He is not on an SSRI which is the most common cause of hyponatremia in this country. He does not have cirrhosis or congestive heart failure. Plan: 1500 cc water restriction 100 cc of hypertonic saline and repeat BMP/sodium at 6 PM. I will be checking sodium every 6 hours. Aim for no greater than 123-124 in the next 24 hours. I explained to the patient that I want to avoid central pontine myelinolysis. Urine sodium, urine osmolality and serum osmolality have been ordered. However most of these are send out labs. Fasting serum cortisol level will be ordered for tomorrow (2) Hypertension, essential, benign: Plan: His usual home medication is telmisartan 40 mg daily as well as diltiazem CD240 mg daily. On formulary does not have telmisartan so I am substituting losartan 50 mg. And resuming his Cardizem CD (3) Tobacco abuse: Plan: Still smoking 2 packs a day. Started at the age of 20. Lately has dropped down to 1 pack/day because of the lack of appetite. He does feel like he will need a nicotine patch. I will order 7 mg. (4) COPD (chronic obstructive pulmonary disease): Plan: Occasional cough. No change in phlegm. Does not have an inhaler that is prescribed. During my exam there is no respiratory distress. Mild increased AP diameter. 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 Please see dictation under separate note. Lab Results Lab results reviewed: Yes Diagnostic Imaging Results Diagnostic Imaging Results Comments: No diagnostic imaging or EKG today Core Measures Anticipated LOS I expect patient to be DC'd or transferred within 96 hours.: Yes DVT/VTE - Prophylaxis VTE/DVT Device ordered at admit?: Yes
[2024-08-26] MEDS ORDERED: IPRATROPIUM/ALBUTEROL 3 ML NEB INH PRN (12:10)
[2024-08-26] MEDS ORDERED: ONDANSETRON ODT 4 MG TABLET TL PRN (12:10)
[2024-08-26] MEDS ORDERED: ONDANSETRON 4 MG/2 ML VIAL IVP PRN (12:10)
[2024-08-26] MEDS ORDERED: oxyCODONE 5 MG TABLET PO PRN (12:10)
--- NOTE | 2024-08-26 13:03 | PHARMACY PROGRESS NOTE ---
Best Possible Medication History Admit Date and Time: 08/26/24 1144 Home Medications Medication Instructions Recorded Confirmed Type furosemide 20 mg tablet 20 mg PO DAILY 04/22/24 08/26/24 History telmisartan 40 mg tablet 40 mg PO QDAY 08/04/24 08/26/24 History Lactobacillus acidophilus 10 100 mmu cells PO DAILY 08/26/24 08/26/24 History billion cell capsule (Probacap) diltiazem HCl 240 mg capsule,24 240 mg PO DAILY 08/26/24 08/26/24 History hr,extended release ondansetron HCl 8 mg tablet 8 mg PO Q8H PRN nausea and vomiting 08/26/24 08/26/24 History prochlorperazine maleate 5 mg 5 mg PO Q4H PRN nausea and vomiting 08/26/24 08/26/24 History tablet Medications reviewed in ED?: Yes Medication History completed: Yes Patient Interview: Completed Secondary Source(s): Spouse/Significant other and Insurance records [facility] Statement: As the person ultimately responsible for medication therapy, providers are able to order a medication from an existing home medication list in [facility] via the "Reconcile Routine" prior to Confirmation of that medication by call center support consultant. Such practice is discouraged except when the physician, in their clinical judg ment, deems that a medical need exists for a medication without regard to previous use.
[2024-08-26] MEDS: SODIUM CHLORIDE FLUSH 0.9% 10 ML SYRINGE IVP SCH (16:29)
[2024-08-26] MEDS ORDERED: ALTEPLASE 2 MG VIAL IJ ONE (18:25)
[2024-08-26] MEDS: NICOTINE 7 MG PATCH TOP SCH (18:31)
--- NOTE | 2024-08-26 18:37 | ADVANCE CARE PLANNING NOTE ---
Advance Care Planning Planning Encounter Date: 08/26/24 Time: 18:31 Purpose: Establish care goals and CODE STATUS Parties in Attendance: Hospitalist, patient, and of patient Decisional Capacity of the Patient: Weight, alert and oriented to person, place, time and situation. He and his both state that he is still decisional. 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 CT abd w 3 cm mass. TURBT 04/27/24 Stage pT1; cystoscopy 05/22/24 Stage pT2a. Stent placed. PET 05/29/24 w L retroperitoneal and pelvic LN hypermetabolic. Stage CASEY, [id number] urothelial bladder ca. Started on pembro and enfortumab. Has port. Not a candidate for cystectomy due to pelvic adenopathy Encounter Subjective/Patient's Story: A gentleman who was 20 years in the [employer]. From there he retired and went to 20 years working for [employer] [place] He has been before. He has 2 children with his first . He then met a patt woman who had been 3 times before. They have been together for 27 years. She has children from her first marriages, and they ended up raising 2 of her kids, and 2 of her grandchildren. They actually adopted 2 of the grandchildren themselves. It has been a tumultuous family. They decided to get in June because of his illness. He tells me that she is his DPOA. He wants his to understand what his advanced wishes are. And wants me to explain any questions that she may have. Prior to his diagnosis and after his mcfp, they had several good years of hauling a fifth saenz down to [place]. Camping every year. Loves driving. That was most most favorite thing to do. He stopped doing it about 4 years ago, not because of disability, but because of his 's disability. She has fibromyalgia and has multiple appointments with multiple providers and is in a chronic pain management program. But he still loves to drive. So even driving to [place], he really enjoys that. He goes to [place] about once a week to check out his son's house. Son is building a house there. He last drove to [place] about 2 weeks ago. He has been so tired recently that he has not had the energy. His current discomfort is due to fatigue with the chemotherapy. He just feels wiped out. He has no taste in his mouth so he does not have any appetite and he is lost weight. He has rare diarrhea. Occasional cough. But he denies headache, severe joint pain. In looking inward, he tells me that he really does not have much pain. It is getting slower and slower when he tries to get up and do things but he still able to dress himself, feed himself. Do slight chores around the house. He does not use a walker or cane. When asked about help down the road, they have not thought about it very much. Right now they are just trying to get through today. His understanding is that he may have 2 years even with therapy. His oncologist has not had that conversation with him. He has not had advance care planning conversation with that office yet. The patient does know that he wants to be a DO NOT RESUSCITATE. He wants his to hear this conversation because he does not want her to override him when the time comes. As for caregiving, he and his left to talk about it over the next few months and play it by ear. See what he will need. He prefers to be at home when the time comes. Objective/Medical Story: Pleasant 74-year-old male who is a current smoker and has COPD, hypertension, hyperlipidemia developed abdominal cramping this summer. Final evaluation showed him to have stage Casey bladder cancer and he is on Pembrolizumab + Enfortumab and has had 2 cycles. . He was seen in the [facility] [place] today and was complaining of decreased appetite, no taste in his mouth, poor p.o. intake. He was weak, tired, and complaining of dizziness. He did not have any fever, chills, cough, nausea, diarrhea, abdominal pain. He does have a stent to the left ureter because of the hydronephrosis from the bladder. He feels like he does not have any significant pain. He is just "wiped out". Because he knows he is not eating very much, he has doubled his water intake. He drinks about 3 bottles a day. Each of the bottles is 12 or 16 ounces. He Continues to take his Lasix for his pedal edema on a daily basis. Past medical history is notable for the fact that his had chronic hyponatremia since 2018. Prior to that his sodium was normal. The only difference between a normal sodium and a low sodium was that he cut out all salt from his diet. He was told that it would be a good thing since he was older, and had blood pressure issues. His sodium ranges between 127-130. No workup has been done. Other than noting that he has a low sodium, they make sure that he gets his sodium level checked every 6 months. He is on Lasix for chronic leg edema. An echocardiogram done in July of this year for his leg edema shows him to have a normal left ventricular ejection fraction. He does not have elevated pulmonary pressures. He does have COPD but is not on oxygen. He does not have a history of alcohol abuse. He is not on an SSRI. He does not have chronic kidney disease. In the Oncology clinic, he was noted to have a low sodium of 120. They sent him to the emergency room and repeat sodium was 117. He says that he is tired all the time but not any more tired than usual. Yesterday was the worst fatigue he has ever had but today he actually felt "just a little bit better". No other systemic complaints. He feels like he has a brain fog but no outright confusion, no slurred speech, no blurred vision. He thought that he would just cancel his chemo for today. And was going to cancel his appointment but the oncology clinic talked him into coming in today to be seen. The emergency room provider has sent labs, but no treatment of the sodium per se. Because treatment of low sodium is a slow process, and he should not be any higher than 123, 24 hours from today. I am placing the patient in at acute care 2 midnights status since I anticipate it will take us that long to get him to 128 or 130. Goals of Care: 1. His first goal is to get out of here as soon as possible. I explained that it will take a couple of days. 2. His second goal is to get through chemotherapy and hopefully get some extended time for his life span Plan: 1. POLST form will be filled out today. DO NOT RESUSCITATE. A copy will be made and put in our electronic medical record, and the original will go home. He asked me where he should put it and I told him he should probably put it on the refrigerator door. 2. When the time comes, make contact with the palliative care service. He states that he knows Christiana Ventura and will reach out to her when the time comes. Code Status: Do Not Attempt Resuscitation Time spent on advance care plannin minutes
[2024-08-26] MEDS: ALTEPLASE 2 MG VIAL IJ ONE (18:49)
[2024-08-26] MEDS: CARBOXYMETHYLCELLULOSE OPHTH DROPS EACHEYE PRN (21:10)
[2024-08-26] MEDS: LORATADINE 10 MG TABLET PO SCH (21:11)
[2024-08-26] MEDS: TEMAZEPAM 15 MG CAPSULE PO PRN (21:12)
[2024-08-26] MEDS: traZODone 50 MG TABLET PO PRN (23:19)
[2024-08-27 05:46] LABS: VBG PH 7.383 (7.31-7.41)
[2024-08-27 05:47] LABS: BASOPHILS # (AUTO) 0.1 10^3/uL (0.0-0.1); BASOPHILS % (AUTO) 1.3 %; CALCIUM, IONIZED 1.1 mmol/L (1.15-1.33); EOSINOPHILS # (AUTO) 0.1 10^3/uL (0.0-0.7); EOSINOPHILS % (AUTO) 0.9 %; HCT - HEMATOCRIT 36.4 % (42.0-52.0); HGB - HEMOGLOBIN 12.9 g/dL (14.0-18.0); LYMPHOCYTES # (AUTO) 0.8 10^3/uL (1.5-3.5); LYMPHOCYTES % (AUTO) 10.7 %; MEAN CORPUSCULAR HEMOGLOBIN 32.7 pg (27.0-31.0); MEAN CORPUSCULAR HGB CONC 35.4 g/dL (32.0-36.0); MEAN CORPUSCULAR VOLUME 92.4 fL (80.0-94.0); MEAN PLATELET VOLUME 9.3 fL (7.4-11.4); MONOCYTES # (AUTO) 1.1 10^3/uL (0.0-1.0); MONOCYTES % (AUTO) 15.5 %; NEUTROPHILS % (AUTO) 70.5 %; PLT - PLATELET COUNT 233 10^3/uL (130-450); RED BLOOD COUNT 3.94 10^6/uL (4.70-6.10); RED CELL DISTRIBUTION WIDTH 12.6 % (12.0-15.0)
[2024-08-27 05:57] LABS: CALCIUM 8.6 mg/dL (8.5-10.3); CREATININE 1.5 mg/dL (0.6-1.3); POTASSIUM 3.5 mmol/L (3.5-4.5)
[2024-08-27] MEDS: ACETAMINOPHEN 325 MG TABLET PO PRN (08:22)
[2024-08-27] MEDS: diltiaZEM CD 240 MG CAPSULE PO SCH (08:23)
[2024-08-27] MEDS: LOSARTAN 50 MG TABLET PO SCH (08:23)
[2024-08-27] MEDS: ENOXAPARIN 40 MG/0.4 ML SYRINGE SUBQ SCH (08:23)
[2024-08-27 09:06] VITALS: TEMP 97.9
[2024-08-27] MEDS: SODIUM CHLORIDE 0.9% 500 ML IV ONE (09:12)
--- NOTE | 2024-08-27 11:45 | Discharge Summary ---
Discharge Summary Admit Date: 08/26/24 Discharge Date: 08/27/24 Discharging Provider: Inna Huerta MD Primary Care Provider: VICKIE Huynh Code Status: Do Not Attempt Resuscitation (POLST form filled out this admission. ) DIAGNOSES Discharge Diagnoses with Status of Each Condition: 1. Acute on chronic hyponatremia 2. Benign essential hypertension 3. Tobacco abuse 4. COPD without exacerbation 5. 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 DO NOT RESUSCITATE status HPI History of Present Illness: Pleasant 74-year-old male who is a current smoker and has COPD, hypertension, hyperlipidemia developed abdominal cramping this summer. Final evaluation showed him to have stage Zaira bladder cancer and he is on Pembrolizumab + Enfortumab and has had 2 cycles. . He was seen in the [facility] today and was complaining of decreased appetite, no taste in his mouth, poor p.o. intake. He was weak, tired, and complaining of dizziness. He did not have any fever, chills, cough, nausea, diarrhea, abdominal pain. He does have a stent to the left ureter because of the hydronephrosis from the bladder. He feels like he does not have any significant pain. He is just "wiped out". Because he knows he is not eating very much, he has doubled his water intake. He drinks about 3 bottles a day. Each of the bottles is 12 or 16 ounces. He Continues to take his Lasix for his pedal edema on a daily basis. Past medical history is notable for the fact that his had chronic hyponatremia since 2018. Prior to that his sodium was normal. The only difference between a normal sodium and a low sodium was that he cut out all salt from his diet. He was told that it would be a good thing since he was older, and had blood pressure issues. His sodium ranges between 127-130. No workup has been done. Other than noting that he has a low sodium, they make sure that he gets his sodium level checked every 6 months. He is on Lasix for chronic leg edema. An echocardiogram done in July of this year for his leg edema shows him to have a normal left ventricular ejection fraction. He does not have elevated pulmonary pressures. He does have COPD but is not on oxygen. He does not have a history of alcohol abuse. He is not on an SSRI. He does not have chronic kidney disease. In the Oncology clinic, he was noted to have a low sodium of 120. They sent him to the emergency room and repeat sodium was 117. He says that he is tired all the time but not any more tired than usual. Yesterday was the worst fatigue he has ever had but today he actually felt "just a little bit better". No other systemic complaints. He feels like he has a brain fog but no outright confusion, no slurred speech, no blurred vision. He thought that he would just cancel his chemo for today. And was going to cancel his appointment but the oncology clinic talked him into coming in today to be seen. The emergency room provider has sent labs, but no treatment of the sodium per se. Because treatment of low sodium is a slow process, and he should not be any higher than 123, 24 hours from today. I am placing the patient in at acute care 2 midnights status since I anticipate it will take us that long to get him to 128 or 130. HOSPITAL COURSE Hospital Course: The patient was admitted inpatient because anticipated at least 2 midnights to get his sodium up to normal if over going to do this slowly. Our goal is not to increase his sodium anymore between 6 to 8 mEq in a 24-hour period. His sodium started at 117. He received 1 dose of 100 mL of hypertonic saline. He was restricted to 1500 cc of free water. And no other IV therapy was given. The hypertonic saline infusion ended in 4 hours and subsequent q6 hour sodium levels went from 117, to 122, to 125, and 126 on the morning of discharge. I gave him 500 cc of normal saline. And his sodium went to 127. 128 is his usual baseline. While he still feels fatigued, he feels like his mind is sharper. Does not have as much nausea. I went over his diet and encouraged him to do regular salt in his food. As such, I think he responded faster than I anticipated. And he will be discharged from inpatient status after only 1 midnight. I have also asked him to follow-up with his primary care provider. Urine osmolality is pending at the time of discharge. Serum osmolality is reduced at 259. Cortisol in the morning was 13.8. TSH was normal at 1.47. My suspicion is this gentleman already has hyponatremia from salt restriction that is quite severe and self-induced. He does not have any medication that would do this. He could have adrenal insufficiency because he has vasovagal incidents with a low sodium but his cortisol level is normal. Because of the chronic hyponatremia, he then had even more reduced salt intake because he was not eating solid food and he was doubling if not tripling his water intake. So I instructed him to liberalize his salt intake. And he can keep drinking the same water he is drinking now. ALLERGIES Allergies Allergy/AdvReac Type Severity Reaction Status Date / Time No Known Drug Allergies Allergy Verified 08/26/24 11:06 MEDICATIONS Ambulatory Orders Medication Instructions Recorded Confirmed furosemide 20 mg tablet 20 mg PO DAILY 04/22/24 08/26/24 telmisartan 40 mg tablet 40 mg PO QDAY 08/04/24 08/26/24 Lactobacillus acidophilus 10 100 mmu cells PO DAILY 08/26/24 08/26/24 billion cell capsule (Probacap) diltiazem HCl 240 mg capsule,24 240 mg PO DAILY 08/26/24 08/26/24 hr,extended release ondansetron HCl 8 mg tablet 8 mg PO Q8H PRN nausea and vomiting 08/26/24 08/26/24 prochlorperazine maleate 5 mg 5 mg PO Q4H PRN nausea and vomiting 08/26/24 08/26/24 tablet PHYSICAL EXAM AT DISCHARGE General Appearance: positive No acute distress, Alert and Other (Very tanned, gaunt, cachectic elderly gentleman who looks older than stated age. But alert, oriented to person, place, time.) Eyes Bilateral: positive PERRL and EOMI ENT: positive Other (Oral mucosa was dry on admission and that has resolved even though I have not given him any IV fluids other than this morning) Neck: positive No JVD; negative Stiff neck or Carotid bruit Respiratory: positive No respiratory distress and Breath sounds nml; negative Wheezes, Rales or Rhonchi Cardiovascular: positive Regular rate & rhythm, No murmur and No gallop Abdomen: positive Non-tender, No organomegaly, Nml bowel sounds and Other (Slightly rounded and distended since admission. He says asked what his bili looks like these days.) Skin: positive Warm and Other (Very tanned in sun exposed areas.); negative Cyanosis (But he appears to have early clubbing. Nailbeds are quite pale.) Extremities: positive Non-tender, Full ROM, Nml appearance and No pedal edema; negative Joint swelling or Hira's sign/cords Neurologic/Psychiatric: positive Oriented x3, CN's nml (2-12) and Motor nml LABS 08/27/24 05:09 08/27/24 11:50 TIME SPENT Time Spent in Discharge (Minutes): 30 Discharge Plan Discharge Patient Disposition: 01 Home, Self Care Condition: Good Medically Cleared Date:: 08/27/24 Prescriptions: Continued furosemide 20 MG tablet 20 mg PO DAILY diltiazem HCl 240 mg capsule,extended release 24 hr 240 mg PO DAILY ondansetron HCl 8 mg tablet 8 mg PO Q8H PRN (Reason: nausea and vomiting) prochlorperazine maleate 5 mg tablet 5 mg PO Q4H PRN (Reason: nausea and vomiting) Probacap 10 billion cell capsule 100 mmu cells PO DAILY telmisartan 40 mg tablet 40 mg PO QDAY Activity Restrictions: Activity as Tolerated Diet: Regular Health Concerns: You came to the emergency room because the [facility] clinic sent you there. You are currently getting therapy for stage IV bladder cancer and the medicine has made you lose your appetite, lose your taste, and you are having to drink a lot more water to stay hydrated. You was so exhausted that you wanted to cancel your chemotherapy appointment but the nurse talked you into coming to being seen in the clinic. Once she was seen in the clinic they did cancel your chemotherapy, and they checked her lab work. Your sodium was low. Normal sodium in your blood is above 135. You have been between [id number] since 2018. The only thing that you can remember having changed at that point in your life was going on a severely low-salt diet. You eliminated all salt from your diet and it was after that that your blood sodium dropped. You been having it checked about every 6 months and has been staying stable. In the emergency room, your sodium was 117. We gave you very concentrated salt water, very slowly. And your sodium level was 126 this morning. That is pretty much near your baseline. We rechecked your sodium at noon today and your sodium is now While you still have poor appetite, and you are tired, you do feel better than yesterday. You feel stable enough to go home. This is a day sooner than I thought you are going to go home but I do feel you are stable enough to go home. While you were here your , yourself, and I discussed resuscitation status. We have filled out a POLST form and you are now a DO NOT RESUSCITATE if you do not have a pulse or pressure. Care Plan Goals: Your main goal right now is to get through chemotherapy and radiation for the bladder cancer. You hope to have some prolonged good time after therapy. Do suspect that you will not be cured but you hope to lengthen your life span. You recently your long-term partner. You hope to continue to be present and active in your children, grandchildren and great grandchildren's life. Assessment: Patient is fatigued, but alert and oriented to person, place, time, and situation Plan of Treatment: 1. Please see your primary care provider in follow-up. If you cannot see your primary care provider please see Dr. Schwartz. He will need to check your sodium level in the next week or 2. 2. Please try to eat a regular diet. Do not bother reducing salt in your diet anymore. If anything add a little bit of salt to your diet. Try and eat anywhere between 2000 to 3000 mg a day. Print Language: Telugu Patient Instructions: Sodium Blood, Hyponatremia Dc Stand Alone Forms: PCP List Follow-up Care: Katlin Calles PA-C [Primary Care Provider] -
[2024-08-27 15:02] VITALS: BP 142/79; O2SAT 93
[2024-08-27] MEDS: SODIUM CHLORIDE FLUSH 0.9% 10 ML SYRINGE IVP PRN (15:29)
== END 2024-08-27 16:45 | disposition home or self-care (01) | DRG 641 ==
LOC: ED 10:36 → ICU 11:44
PROVIDERS: ADMIT Specialist; ATTEND Specialist
DX: Z92.21 Personal history of antineoplastic chemotherapy; Z68.26 Body mass index [BMI] 26.0-26.9, adult; J44.9 Chronic obstructive pulmonary disease, unspecified; E78.5 Hyperlipidemia, unspecified; F17.210 Nicotine dependence, cigarettes, uncomplicated; R60.0 Localized edema; T45.1X5A Adverse effect of antineoplastic and immunosuppressive drugs, initial encounter; C67.9 Malignant neoplasm of bladder, unspecified; R43.9 Unspecified disturbances of smell and taste; I10 Essential (primary) hypertension; Z66 Do not resuscitate; E87.1 Hypo-osmolality and hyponatremia; R63.8 Other symptoms and signs concerning food and fluid intake; R63.0 Anorexia; Z79.899 Other long term (current) drug therapy; C77.5 Secondary and unspecified malignant neoplasm of intrapelvic lymph nodes; R64 Cachexia; I25.10 Atherosclerotic heart disease of native coronary artery without angina pectoris

== ENCOUNTER 2024-10-28 13:14 | Inpatient (IN) ==
[2024-10-28 14:12] LABS: BASOPHILS % (AUTO) 0.4 %; HCT - HEMATOCRIT 35.5 % (42.0-52.0); HGB - HEMOGLOBIN 12.5 g/dL (14.0-18.0); LYMPHOCYTES # (AUTO) 0.5 10^3/uL (1.5-3.5); LYMPHOCYTES % (AUTO) 7.1 %; MEAN CORPUSCULAR HEMOGLOBIN 32.1 pg (27.0-31.0); MEAN CORPUSCULAR HGB CONC 35.2 g/dL (32.0-36.0); MEAN CORPUSCULAR VOLUME 91.3 fL (80.0-94.0); MEAN PLATELET VOLUME 9.8 fL (7.4-11.4); MONOCYTES # (AUTO) 0.7 10^3/uL (0.0-1.0); NEUTROPHILS # (AUTO) 6.1 10^3/uL (1.5-6.6); NEUTROPHILS % (AUTO) 79.9 %; NRBC ABSOLUTE COUNT (AUTO) 0.03 x10^3/uL; NUCLEATED RED BLOOD CELLS AUTO 0.4 /100WBC; PLT - PLATELET COUNT 279 10^3/uL (130-450); RED BLOOD COUNT 3.89 10^6/uL (4.70-6.10); RED CELL DISTRIBUTION WIDTH 15.7 % (12.0-15.0); WHITE BLOOD COUNT 7.6 x10^3/uL (4.8-10.8)
[2024-10-28 14:33] LABS: ALBUMIN 3.4 g/dL (3.2-5.5); ALBUMIN/GLOBULIN RATIO 1.2 (1.0-2.2); BILIRUBIN,TOTAL 1.6 mg/dL (0.2-1.0); CALCIUM 8.5 mg/dL (8.5-10.3); CREATININE 1.1 mg/dL (0.6-1.3); POTASSIUM 3.5 mmol/L (3.5-4.5); TOTAL PROTEIN 6.2 g/dL (6.4-8.9)
--- NOTE | 2024-10-28 16:11 | ED Physician Documentation ---
History of Present Illness Stated complaint Stated Complaint: LIGHT HEADED Chief complaint Chief Complaint: General History obtained from History obtained from: Patient and Family History of Present Illness Timing: Today Pain level max: 0 Pain level now: 0 Additonal information Additional information: 74-year-old male presents to the emergency department states for bladder cancer. He has had issues with recurrent hyponatremia, was placed on salt tabs but for some reason stopped these. Today he is feeling weak, unable to walk or stand unassisted. No fevers. No chills. No cough or congestion. The patient was here recently for blisters and was told to stop the gabapentin but specifically told to continue the salt tabs, he did stop the salt tabs anyway. No focal neurological deficits. Does have some mild confusion. Review of Systems Constitutional Denies: Fever or Chills Cardiovascular Denies: chest pain, palpitations or shortness of breath with exertion Respiratory Denies: Shortness of breath or Cough Gastrointestinal Denies: Abdominal pain, Nausea or Vomiting Musculoskeletal Denies: Back pain Meds/Allgy Home Medications Ambulatory Orders Medication Instructions Recorded Confirmed furosemide 20 mg tablet 20 mg PO DAILY 04/22/24 10/28/24 telmisartan 40 mg tablet 40 mg PO QDAY 08/04/24 10/28/24 Lactobacillus acidophilus 10 100 mmu cells PO DAILY 08/26/24 10/28/24 billion cell capsule (Probacap) diltiazem HCl 240 mg capsule,24 240 mg PO DAILY 08/26/24 10/28/24 hr,extended release ondansetron HCl 8 mg tablet 8 mg PO Q8H PRN nausea and vomiting 08/26/24 10/28/24 gabapentin 300 mg capsule 300 mg PO TID PRN neuropathic pain 10/19/24 10/28/24 #60 caps sodium chloride 1,000 mg soluble 1,000 mg PO DAILY #30 tabs 10/19/24 10/28/24 tablet pyridoxine (vitamin B6) 50 mg 50 mg PO DAILY 10/21/24 10/28/24 capsule (Vitamin B-6) cetirizine 10 mg tablet 10 mg PO BID #14 tabs 10/23/24 10/28/24 dexamethasone 4 mg tablet 4 mg PO DAILY #7 tabs 10/23/24 10/28/24 Allergies Allergies Allergy/AdvReac Type Severity Reaction Status Date / Time gabapentin Allergy Intermediate Blistering Verified 10/28/24 14:57 Whole Body [facility] Medical History Medical History (Updated 10/28/24 @ 17:31 by Kyle Kent) Acute hyponatremia ACL (anterior cruciate ligament) rupture Dupuytren contracture Near syncope EMS call 05/2013>[facility] amb report 07/2023 w NSR, one 21 beat episode of 107 Hernia Surgical History Surgical History H/O arthroscopic knee surgery 08/2010 (R), 09/2010 (L) History of bilateral knee replacement History of cystoscopy History of knee replacement Family History Family History Father Heart attack Mother Well adult on routine health check Brother Melanoma of shoulder Brother CAD (coronary artery disease) Atrial fibrillation Sister Well adult on routine health check Son Well adult on routine health check Social History Social History Smoking Status: Current every day smoker Number of Years Smoked: 50 How many cigarettes a day do you smoke? (20 cigarettes=1 Pk): 1 Second hand tobacco smoke exposure: Yes Do you dip or chew tobacco?: No Do you vape?: No Patient requests smoking cessation consult: No Initiate information on smoking cessation: No Living arrangement: At home Marital Status: Living Condition: With spouse/s.o. Support Person: Yes Relationship: Physical Activity: Walking Level: Assisted Home Mobility Equipment: Wheeled walker Do you feel safe in your home environment?: Yes Suffered physical, verbal, emotional, or financial abuse?: No History of Abuse: No ETOH Use: Beer Frequency: Daily Number of Amount/day: 8 ETOH Use Details: very little Substance Use: denies use POLST Patient has POLST: No POLST Status: DNR Exam Constitutional normal general appearance and no apparent distress HENMT oropharynx normal moist mucous membranes Eyes PERRL Neck/C-Spine visual inspection normal Respiratory breath sounds equal bilaterally, normal respiratory effort and clear to auscultation bilaterally Cardiovascular normal heart rate noted and regular rhythm noted Gastrointestinal abdomen normal to inspection, abdomen soft to palpation, nontender to palpation and nondistended Genitourinary no CVA tenderness Extremities no deformity no edema Neurology study manager II-XII intact and speech normal Psychiatry Alert, oriented to person and place, mildly confused, does not know that Nataliya's Day is coming up. Slight repetitive questioning Skin skin color normal Results Vitals Vitals: Vital Signs - 24 hr 10/28/24 13:33 10/28/24 13:45 10/28/24 15:58 Temperature 36.2 C L Temperature Source Temporal Artery Scan Pulse Rate 89 Respiratory Rate 18 17 Blood Pressure 119/70 O2 Saturation 97 O2 Source Room air Room air Room air Pain Intensity 0 0 1 10/28/24 17:05 Temperature Temperature Source Pulse Rate 81 Respiratory Rate 17 Blood Pressure 169/91 H O2 Saturation 97 O2 Source Room air Pain Intensity 6 Oxygen O2 Source Room air Labs Labs: Laboratory Tests 10/28/24 14:08 WBC 7.6 RBC 3.89 L Hgb 12.5 L Hct 35.5 L MCV 91.3 MCH 32.1 H MCHC 35.2 RDW 15.7 H Plt Count 279 MPV 9.8 Neut # (Auto) 6.1 Lymph # (Auto) 0.5 L Gosper # (Auto) 0.7 Eos # (Auto) 0.0 Baso # (Auto) 0.0 Absolute Nucleated RBC 0.03 Nucleated RBC % 0.4 Sodium 125 L Potassium 3.5 Chloride 90 L Carbon Dioxide 28 Anion Gap 7.0 BUN 23 H Creatinine 1.1 Estimated GFR (MDRD) 65 L Glucose 129 H Calcium 8.5 Total Bilirubin 1.6 H AST 81 H ALT 106 H Alkaline Phosphatase 54 Total Protein 6.2 L Albumin 3.4 Globulin 2.8 Albumin/Globulin Ratio 1.2 Lipase 15 PD Medical Decision Making ED course Complexity details: reviewed results, considered differential and d/w patient ED course: Patient is a 74-year-old male with hyponatremia, sodium down to 125, mild confusion especially with dates and upcoming date. Has significant weakness and is unable to stand or walk unassisted which is new for him today. He was supposed to continue his salt tablets but did stop these, suspect that his hyponatremia is the main reason for his weakness. Started on IV fluids, may take a few days to correct and ensure that he can ambulate safely. Therefore contacted the hospitalist who will admit for further care. This document was made in part using voice recognition software. While efforts are made to proofread this document, sound alike and grammatical errors may occur. Discharge Plan Discharge Patient Disposition: 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
[2024-10-28] MEDS: SODIUM CHLORIDE 0.9% 1,000 ML IV STA ×2 (16:28→17:26)
--- NOTE | 2024-10-28 17:39 | HISTORY & PHYSICAL EXAMINATION ---
<Statement entered by Dean Chong DNP - 10/28/24 18:07> Patient was seen and examined by me with a separate encounter after being seen by NAHUN student. I reviewed the student's documentation including patient history, physical examination, laboratory, imaging, clinical assessment and treatment plan. I have discussed the management of the patient with the student, and with the patient. There are no changes. Admit for hyponatremia. Has generalized weakness. Restarting salt tabs, giving IV saline. Needs PT/OT eval for discharge planning Chief Complaint Chief Complaint Chief Complaint: Weakness, tired, extremely thirsty History of Present Illness Admitted From Admitted From:: Home History Obtained From Records Reviewed: EMR History obtained from: Patient and Exam Limitations: None History of Present Illness HPI Comment/Other: Mr Guzmán is a 74 year old gentleman admitted for recurrent acute on chronic hyponeutremia. Pt of Dr Perdue oncology and on active chemo therapy treatment for stage Zaira bladder cancer with Pembrolizumag + Enfortumab. He c/o increased tiredness, weakness, unable to walk on his own without assistance, and feeling extremely thirsty. He says he has been feeling increased nausea when eating, has had decreased appetite. He states he was recently seen in the last couple of weeks for similar symptoms with low sodium levels. He was prescribed sodium tabs on the last visit but had not been taking them stating he didn't like them. ED labs displayed hyponeutremia 125, hypokalemic 3.5, elevated BUN 23, elevated AST 81 and ALT 106. Last ED visit 10/23/24 he was given Gabapentin for pain, causing widspread severe blister/rash reaction. He states he denies headache, blurred vision, shortness of breath, chest pain, abd pain, numbness and tingling in extremities. ED course: given 1L NS bolus. Meds/Allgy Home Medications Ambulatory Orders Medication Instructions Recorded Confirmed furosemide 20 mg tablet 20 mg PO DAILY 04/22/24 10/28/24 telmisartan 40 mg tablet 40 mg PO QDAY 08/04/24 10/28/24 Lactobacillus acidophilus 10 100 mmu cells PO DAILY 08/26/24 10/28/24 billion cell capsule (Probacap) diltiazem HCl 240 mg capsule,24 240 mg PO DAILY 08/26/24 10/28/24 hr,extended release ondansetron HCl 8 mg tablet 8 mg PO Q8H PRN nausea and vomiting 08/26/24 10/28/24 gabapentin 300 mg capsule 300 mg PO TID PRN neuropathic pain 10/19/24 10/28/24 #60 caps sodium chloride 1,000 mg soluble 1,000 mg PO DAILY #30 tabs 10/19/24 10/28/24 tablet pyridoxine (vitamin B6) 50 mg 50 mg PO DAILY 10/21/24 10/28/24 capsule (Vitamin B-6) cetirizine 10 mg tablet 10 mg PO BID #14 tabs 10/23/24 10/28/24 dexamethasone 4 mg tablet 4 mg PO DAILY #7 tabs 10/23/24 10/28/24 Allergies Allergies Allergy/AdvReac Type Severity Reaction Status Date / Time gabapentin Allergy Intermediate Blistering Verified 10/28/24 14:57 Whole Body [facility] Medical History Medical History (Updated 10/28/24 @ 17:31 by Kyle Kent) Acute hyponatremia ACL (anterior cruciate ligament) rupture Dupuytren contracture Near syncope EMS call 05/2013>[facility] amb report 07/2023 w NSR, one 21 beat episode of 107 Hernia Surgical History Surgical History H/O arthroscopic knee surgery 08/2010 (R), 09/2010 (L) History of bilateral knee replacement History of cystoscopy History of knee replacement Family History Family History Father Heart attack Mother Well adult on routine health check Brother Melanoma of shoulder Brother CAD (coronary artery disease) Atrial fibrillation Sister Well adult on routine health check Son Well adult on routine health check Social History Social History Smoking Status: Current every day smoker Number of Years Smoked: 50 How many cigarettes a day do you smoke? (20 cigarettes=1 Pk): 20 Second hand tobacco smoke exposure: Yes Do you dip or chew tobacco?: No Do you vape?: No Patient requests smoking cessation consult: No Initiate information on smoking cessation: No Living arrangement: At home Marital Status: Living Condition: With spouse/s.o. Support Person: Yes Relationship: Physical Activity: Walking Level: Independent Do you feel safe in your home environment?: Yes Suffered physical, verbal, emotional, or financial abuse?: No History of Abuse: No ETOH Use: Beer Frequency: Daily Number of Amount/day: 8 ETOH Use Details: very little Substance Use: denies use POLST Patient has POLST: Yes POLST Status: DNR Review of Systems Status of ROS: 10 or more systems reviewed and unremarkable except as noted in history and below and See HPI Prior Level of Functionality: Per the , states he still drives, "but shouldn't," saying he gets tired very easily. Able to perform ADLs. Exam Exam Mr Guzmán a 74 year old gentleman admitted for recurrent acute on chronic hyponeutremia. Constitutional Reports extreme sense of thirst, weakness, fatigue, inability to walk without assistance, and decreased appetite. HENMT normocephalic, head/scalp atraumatic and oropharynx normal Extremely dry mucus membranes Eyes PERRL, EOMs intact bilaterally, conjunctivae normal, visual acuity normal and no nystagmus chronic visual loss with ageing. Neck/C-Spine trachea midline, cervical spine nontender and cervical full ROM noted Lymph no lymphedema noted Chest palpation of chest normal Vascular port noted on upper left chest. Cardiovascular peripheral pulses 2+ throughout Notable intermittent irregular beat w/ gallop. Gastrointestinal abdomen soft to palpation, nontender to palpation, nondistended, no masses and no pulsatile mass Genitourinary Deferred Back/Pelvis spine normal to inspection, no thoracic spine tenderness and no lumbar spine tenderness Extremities full ROM Full range of motion Neurology medical director occupational health II-XII intact, no movement abnormality noted, no focal motor deficit noted, no sensory deficits noted and speech normal Psychiatry mental status grossly normal, oriented x3 and memory normal depressed, obvious discomfort. Skin Skin dark, dry and scaly, poor skin turgor/tinting, scattered superficial blisters in multiple stages of healing. no acute blisters or bullae. Conclusion/Plan Problem List (1) Acute hyponatremia: Plan: Given 1L NS bolus in ED Free water fluid restriction limit 1500ml Recheck serial labs q4 hrs. until great than 130. Then daily AM labs Sodium tablets 1g BID (2) Generalized weakness: Plan: Limited ability to walk without assistance. Discuss goals of care and advanced planning concerning home health/ assisted living. PT/ OT consult. 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 (4) COPD (chronic obstructive pulmonary disease): Plan: Continue home medications (5) Hypertension, essential, benign: Plan: Continue home medications Plan Code status DNR w/ limited treatment. Lab Results 10/28/24 14:08 10/28/24 14:08
[2024-10-28] MEDS ORDERED: SODIUM CHLORIDE FLUSH 0.9% 10 ML SYRINGE IVP PRN (18:26)
[2024-10-28] MEDS ORDERED: ONDANSETRON 4 MG/2 ML VIAL IVP PRN (18:26)
[2024-10-28] MEDS ORDERED: PROCHLORPERAZINE 10 MG/2 ML VIAL IVP PRN (18:26)
[2024-10-28] MEDS ORDERED: ONDANSETRON ODT 4 MG TABLET TL PRN (18:26)
[2024-10-28] MEDS ORDERED: TELMISARTAN 40 MG PO SCH (18:26)
[2024-10-28] MEDS: SODIUM CHLORIDE 0.9% 1,000 ML IV SCH (19:07)
[2024-10-28] MEDS: CETIRIZINE 10 MG TABLET PO SCH (21:24)
[2024-10-28 21:53] LABS: BILIRUBIN,URINE NEGATIVE (NEGATIVE); GLUCOSE, URINE (UA) NEGATIVE (NEGATIVE); KETONES,URINE (UA) TRACE mg/dL (NEGATIVE); LEUKOCYTE ESTERASE, URINE NEGATIVE (NEGATIVE); NITRITE,URINE NEGATIVE (NEGATIVE); OCCULT BLOOD,URINE NEGATIVE (NEGATIVE); PH,URINE 7.5 PH (5.0-7.5); PROTEIN,URINE NEGATIVE (NEGATIVE); UROBILINOGEN,URINE 2 E.U./dL (NORMAL)
[2024-10-28 21:57] LABS: CLARITY,URINE CLEAR (CLEAR)
[2024-10-29] MEDS: MELATONIN 3 MG TABLET PO PRN (00:38)
[2024-10-29] MEDS: SODIUM CHLORIDE FLUSH 0.9% 10 ML SYRINGE IVP SCH (00:42)
[2024-10-29 06:37] LABS: BASOPHILS % (AUTO) 0.4 %; HCT - HEMATOCRIT 31.3 % (42.0-52.0); HGB - HEMOGLOBIN 10.7 g/dL (14.0-18.0); LYMPHOCYTES # (AUTO) 0.6 10^3/uL (1.5-3.5); LYMPHOCYTES % (AUTO) 10.6 %; MEAN CORPUSCULAR HEMOGLOBIN 32.2 pg (27.0-31.0); MEAN CORPUSCULAR HGB CONC 34.2 g/dL (32.0-36.0); MEAN CORPUSCULAR VOLUME 94.3 fL (80.0-94.0); MEAN PLATELET VOLUME 10.2 fL (7.4-11.4); MONOCYTES # (AUTO) 0.8 10^3/uL (0.0-1.0); MONOCYTES % (AUTO) 13.6 %; NEUTROPHILS # (AUTO) 4.1 10^3/uL (1.5-6.6); NEUTROPHILS % (AUTO) 72.9 %; PLT - PLATELET COUNT 252 10^3/uL (130-450); RED BLOOD COUNT 3.32 10^6/uL (4.70-6.10); RED CELL DISTRIBUTION WIDTH 15.9 % (12.0-15.0); WHITE BLOOD COUNT 5.7 x10^3/uL (4.8-10.8)
[2024-10-29 06:41] LABS: CALCIUM 7.6 mg/dL (8.5-10.3); POTASSIUM 3.4 mmol/L (3.5-4.5)
[2024-10-29] MEDS: polyethylene glycoL 3350 17 GM PACKET PO SCH (08:14)
[2024-10-29] MEDS: PYRIDOXINE 100 MG TABLET PO SCH (08:14)
[2024-10-29] MEDS: ENOXAPARIN 40 MG/0.4 ML SYRINGE SUBQ SCH (08:14)
[2024-10-29] MEDS: dexAMETHasone 4 MG TABLET PO SCH (08:15)
[2024-10-29] MEDS: LOSARTAN 50 MG TABLET PO SCH (08:15)
[2024-10-29] MEDS: ACETAMINOPHEN 325 MG TABLET PO PRN (08:15)
[2024-10-29] MEDS: diltiaZEM CD 240 MG CAPSULE PO SCH (08:15)
[2024-10-29] MEDS: SODIUM CHLORIDE 1 GM TABLET PO SCH ×2 (08:15→13:28)
[2024-10-29] MEDS: FUROSEMIDE 20 MG TABLET PO SCH (08:15)
[2024-10-29] MEDS: LACTOBACILLUS RHAMNOSUS GG CAPSULE PO SCH (08:15)
--- NOTE | 2024-10-29 11:13 | PHARMACY PROGRESS NOTE ---
Best Possible Medication History Admit Date and Time: 10/28/24 1714 Home Medications Medication Instructions Recorded Confirmed Type furosemide 20 mg tablet 20 mg PO DAILY 04/22/24 10/28/24 History telmisartan 40 mg tablet 40 mg PO QDAY 08/04/24 10/28/24 History Lactobacillus acidophilus 10 100 mmu cells PO DAILY 08/26/24 10/28/24 History billion cell capsule (Probacap) diltiazem HCl 240 mg capsule,24 240 mg PO DAILY 08/26/24 10/28/24 History hr,extended release ondansetron HCl 8 mg tablet 8 mg PO Q8H PRN nausea and vomiting 08/26/24 10/28/24 History gabapentin 300 mg capsule 300 mg PO TID PRN neuropathic pain 10/19/24 10/28/24 Rx #60 caps sodium chloride 1,000 mg soluble 1,000 mg PO DAILY #30 tabs 10/19/24 10/28/24 Rx tablet pyridoxine (vitamin B6) 50 mg 50 mg PO DAILY 10/21/24 10/28/24 History capsule (Vitamin B-6) cetirizine 10 mg tablet 10 mg PO BID #14 tabs 10/23/24 10/28/24 Rx dexamethasone 4 mg tablet 4 mg PO DAILY #7 tabs 10/23/24 10/28/24 Rx Processed by: Nursing Medications reviewed in ED?: No Medication History completed: Yes Patient Interview: Completed Secondary Source(s): Pharmacy records, Insurance records and Previous admit records [facility] Statement: As the person ultimately responsible for medication therapy, providers are able to order a medication from an existing home medication list in [facility] via the "Reconcile Routine" prior to Confirmation of that medication by physician support coordinator. Such practice is discouraged except when the physician, in their clinical judgment, deems that a medical need exists for a medication without regard to previous use.
--- NOTE | 2024-10-29 11:23 | PROVIDER PROGRESS NOTE ---
Subjective Prog Note Date Prog Note Date: 10/29/24 Prog Note Time: 11:20 Subjective Pt reports feeling: Improved (feels well, no pain, dizziness, or weakness noted) Subjective: 1115: Patient is sitting in recliner chair resting, alert and oriented to self, location, and time of day. He states he did not sleep well last night due to uncomfortable hospital bed which causes tailbone pain. He denies current pain, states sitting in the recliner is much more comfortable. He is feeling well today with no dizziness noted. He is unsure if standing or walking would worsen symptoms. He is hoping to see PT today and to be able to walk around the hospital, he is currently feeling bored and antsy in his hospital room. I let him know that last labs at 0900 showed sodium up to 127, slowly trending toward our goal of 130. He denies headache, fever, abdominal pain, paresthesias, confusion. He has a mild nonproductive cough which is typical for him given COPD. No current concerns or questions. Current Medications Current Medications Current Medications: Current Medications Generic Name Dose Route Start Last Admin Trade Name Freq PRN Reason Stop Dose Admin Acetaminophen 650 mg 10/28/24 18:26 10/29/24 08:15 Acetaminophen 325 Mg Tablet PO 650 mg Q4HR PRN Administration Pain 1 to 4, or Fever Cetirizine HCl 10 mg 10/28/24 21:00 10/29/24 08:15 Cetirizine 10 Mg Tablet PO 10 mg BID ARIANE Administration Dexamethasone 4 mg 10/29/24 09:00 10/29/24 08:15 Dexamethasone 4 Mg Tablet PO 4 mg DAILY ARIANE Administration Diltiazem HCl 240 mg 10/29/24 09:00 10/29/24 08:15 Diltiazem Cd 240 Mg Capsule PO 240 mg DAILY ARIANE Administration Enoxaparin Sodium 40 mg 10/29/24 09:00 10/29/24 08:14 Enoxaparin 40 Mg/0.4 Ml Syringe SUBQ 40 mg DAILY ARIANE Administration Sodium Chloride 1,000 mls @ 100 mls/hr 10/28/24 18:26 10/29/24 01:09 Normal Saline 0.9% IV 100 mls/hr .Q10H ARIANE Administration Lactobacillus Rhamnosus 1 cap 10/29/24 09:00 10/29/24 08:15 Lactobacillus Rhamnosus Gg Capsule PO 1 cap DAILY ARIANE Administration Losartan Potassium 50 mg 10/29/24 09:00 10/29/24 08:15 Losartan 50 Mg Tablet PO 50 mg DAILY ARIANE Administration Melatonin 3 mg 10/29/24 00:12 10/29/24 00:38 Melatonin 3 Mg Tablet PO 3 mg QPM PRN Administration sleep Ondansetron HCl 4 mg 10/28/24 18:26 Ondansetron Odt 4 Mg Tablet TL Q6HR PRN Nausea / Vomiting Ondansetron HCl 4 mg 10/28/24 18:26 Ondansetron 4 Mg/2 Ml Vial IVP Q6HR PRN Nausea / Vomiting Polyethylene Glycol 17 gm 10/29/24 09:00 10/29/24 08:14 Polyethylene Glycol 3350 17 Gm Packet PO 17 gm DAILY ARIANE Administration Prochlorperazine Edisylate 10 mg 10/28/24 18:26 Prochlorperazine 10 Mg/2 Ml Vial IVP Q6HR PRN Nausea / Vomiting Pyridoxine HCl 50 mg 10/29/24 09:00 10/29/24 08:14 Pyridoxine 100 Mg Tablet PO 50 mg DAILY ARIANE Administration Sodium Chloride 10 ml 10/28/24 18:26 Sodium Chloride Flush 0.9% 10 Ml Syringe IVP PRN PRN NEEDED PER PROVIDER ORDERS Sodium Chloride 10 ml 10/29/24 01:00 10/29/24 08:16 Sodium Chloride Flush 0.9% 10 Ml Syringe IVP 10 ml 0100,0900,1700 ARIANE Administration Sodium Chloride 2 gm 10/29/24 14:00 Sodium Chloride 1 Gm Tablet PO TID ARIANE Objective Vital Signs/Intake & Output Reviewed Vital Signs: Yes Vital Signs: Vital Signs x48h Temp Pulse Resp BP Pulse Ox 10/29/24 07:59 36.4 C L 72 18 160/94 H 93 Intake & Output: Intake & Output 10/26/24 10/27/24 10/28/24 10/29/24 23:59 23:59 23:59 23:59 Intake Total 1569 / 1569 1043 / 1043 Output Total 1325 / 1325 700 / 700 Balance 244 / 244 343 / 343 Weight (kg) 71.5 kg Objective General Appearance: positive No acute distress and Alert Eyes Bilateral: positive Normal inspection and PERRL ENT: positive ENT inspection nml Neck: positive Nml inspection Respiratory: positive Chest non-tender, No respiratory distress and Breath sounds nml Cardiovascular: positive Regular rate & rhythm Abdomen: positive Non-tender Back: positive Nml inspection Skin: positive Other (dry, dark, peeling skin throughout due to drug-induced bullous pemphigoid ) Extremities: positive Non-tender and Full ROM Neurologic/Psychiatric: positive Oriented x3, CN's nml (2-12), Motor nml, Sensation nml and Mood/affect nml Lab Results 10/29/24 05:35 10/29/24 13:14 Other Labs: Lab Results x24hrs 10/29/24 10/29/24 10/29/24 Range/Units 09:01 05:35 01:33 WBC 5.7 (4.8-10.8) x10^3/uL RBC 3.32 L (4.70-6.10) 10^6/uL Hgb 10.7 L (14.0-18.0) g/dL Hct 31.3 L (42.0-52.0) % MCV 94.3 H (80.0-94.0) fL MCH 32.2 H (27.0-31.0) pg MCHC 34.2 (32.0-36.0) g/dL RDW 15.9 H (12.0-15.0) % Plt Count 252 (130-450) 10^3/uL MPV 10.2 (7.4-11.4) fL Neut # (Auto) 4.1 (1.5-6.6) 10^3/uL Lymph # (Auto) 0.6 L (1.5-3.5) 10^3/uL [place] # (Auto) 0.8 (0.0-1.0) 10^3/uL Eos # (Auto) 0.0 (0.0-0.7) 10^3/uL Baso # (Auto) 0.0 (0.0-0.1) 10^3/uL Absolute Nucleated RBC 0.00 x10^3/uL Nucleated RBC % 0.0 /100WBC Sodium 127 L 128 L 127 L (135-145) mmol/L Potassium 3.4 L (3.5-4.5) mmol/L Chloride 97 L (101-111) mmol/L Carbon Dioxide 25 (21-32) mmol/L Anion Gap 6.0 (6-13) BUN 20 (6-20) mg/dL Creatinine 1.0 (0.6-1.3) mg/dL Estimated GFR (MDRD) 73 L (>89) Glucose 121 H (74-104) mg/dL Calcium 7.6 L (8.5-10.3) mg/dL Total Bilirubin (0.2-1.0) mg/dL AST (10-42) IU/L ALT (10-60) IU/L Alkaline Phosphatase (42-121) IU/L Total Protein (6.4-8.9) g/dL Albumin (3.2-5.5) g/dL Globulin (2.1-4.2) g/dL Albumin/Globulin Ratio (1.0-2.2) Lipase (11-82) U/L Urine Color Urine Clarity (CLEAR) Urine pH (5.0-7.5) PH Ur Specific [place] (1.002-1.030) Urine Protein (NEGATIVE) mg/dL Urine Glucose (UA) (NEGATIVE) mg/dL Urine Ketones (NEGATIVE) mg/dL Urine Occult Blood (NEGATIVE) Urine Nitrite (NEGATIVE) Urine Bilirubin (NEGATIVE) Urine Urobilinogen (NORMAL) E.U./dL Ur Leukocyte Esterase (NEGATIVE) Ur Microscopic Review Urine Culture Comments 10/28/24 10/28/24 10/28/24 Range/Units 21:09 20:31 17:21 WBC (4.8-10.8) x10^3/uL RBC (4.70-6.10) 10^6/uL Hgb (14.0-18.0) g/dL Hct (42.0-52.0) % MCV (80.0-94.0) fL MCH (27.0-31.0) pg MCHC (32.0-36.0) g/dL RDW (12.0-15.0) % Plt Count (130-450) 10^3/uL MPV (7.4-11.4) fL Neut # (Auto) (1.5-6.6) 10^3/uL Lymph # (Auto) (1.5-3.5) 10^3/uL [place] # (Auto) (0.0-1.0) 10^3/uL Eos # (Auto) (0.0-0.7) 10^3/uL Baso # (Auto) (0.0-0.1) 10^3/uL Absolute Nucleated RBC x10^3/uL Nucleated RBC % /100WBC Sodium 127 L 128 L (135-145) mmol/L Potassium (3.5-4.5) mmol/L Chloride (101-111) mmol/L Carbon Dioxide (21-32) mmol/L Anion Gap (6-13) BUN (6-20) mg/dL Creatinine (0.6-1.3) mg/dL Estimated GFR (MDRD) (>89) Glucose (74-104) mg/dL Calcium (8.5-10.3) mg/dL Total Bilirubin (0.2-1.0) mg/dL AST (10-42) IU/L ALT (10-60) IU/L Alkaline Phosphatase (42-121) IU/L Total Protein (6.4-8.9) g/dL Albumin (3.2-5.5) g/dL Globulin (2.1-4.2) g/dL Albumin/Globulin Ratio (1.0-2.2) Lipase (11-82) U/L Urine Color YELLOW Urine Clarity CLEAR (CLEAR) Urine pH 7.5 (5.0-7.5) PH Ur Specific [place] 1.010 (1.002-1.030) Urine Protein NEGATIVE (NEGATIVE) mg/dL Urine Glucose (UA) NEGATIVE (NEGATIVE) mg/dL Urine Ketones TRACE (NEGATIVE) mg/dL Urine Occult Blood NEGATIVE (NEGATIVE) Urine Nitrite NEGATIVE (NEGATIVE) Urine Bilirubin NEGATIVE (NEGATIVE) Urine Urobilinogen 2 H (NORMAL) E.U./dL Ur Leukocyte Esterase NEGATIVE (NEGATIVE) Ur Microscopic Review NOT INDICATED Urine Culture Comments NOT INDICATED 10/28/24 Range/Units 14:08 WBC 7.6 (4.8-10.8) x10^3/uL RBC 3.89 L (4.70-6.10) 10^6/uL Hgb 12.5 L (14.0-18.0) g/dL Hct 35.5 L (42.0-52.0) % MCV 91.3 (80.0-94.0) fL MCH 32.1 H (27.0-31.0) pg MCHC 35.2 (32.0-36.0) g/dL RDW 15.7 H (12.0-15.0) % Plt Count 279 (130-450) 10^3/uL MPV 9.8 (7.4-11.4) fL Neut # (Auto) 6.1 (1.5-6.6) 10^3/uL Lymph # (Auto) 0.5 L (1.5-3.5) 10^3/uL [place] # (Auto) 0.7 (0.0-1.0) 10^3/uL Eos # (Auto) 0.0 (0.0-0.7) 10^3/uL Baso # (Auto) 0.0 (0.0-0.1) 10^3/uL Absolute Nucleated RBC 0.03 x10^3/uL Nucleated RBC % 0.4 /100WBC Sodium 125 L (135-145) mmol/L Potassium 3.5 (3.5-4.5) mmol/L Chloride 90 L (101-111) mmol/L Carbon Dioxide 28 (21-32) mmol/L Anion Gap 7.0 (6-13) BUN 23 H (6-20) mg/dL Creatinine 1.1 (0.6-1.3) mg/dL Estimated GFR (MDRD) 65 L (>89) Glucose 129 H (74-104) mg/dL Calcium 8.5 (8.5-10.3) mg/dL Total Bilirubin 1.6 H (0.2-1.0) mg/dL AST 81 H (10-42) IU/L ALT 106 H (10-60) IU/L Alkaline Phosphatase 54 (42-121) IU/L Total Protein 6.2 L (6.4-8.9) g/dL Albumin 3.4 (3.2-5.5) g/dL Globulin 2.8 (2.1-4.2) g/dL Albumin/Globulin Ratio 1.2 (1.0-2.2) Lipase 15 (11-82) U/L Urine Color Urine Clarity (CLEAR) Urine pH (5.0-7.5) PH Ur Specific [place] (1.002-1.030) Urine Protein (NEGATIVE) mg/dL Urine Glucose (UA) (NEGATIVE) mg/dL Urine Ketones (NEGATIVE) mg/dL Urine Occult Blood (NEGATIVE) Urine Nitrite (NEGATIVE) Urine Bilirubin (NEGATIVE) Urine Urobilinogen (NORMAL) E.U./dL Ur Leukocyte Esterase (NEGATIVE) Ur Microscopic Review Urine Culture Comments ABX Reporting Has patient been on IV antibiotics over the past 48 hours?: No Assessment/Plan Problem List (1) Acute hyponatremia: Impression: Last labs 1314 show continued hyponatremia at 127. Continue NS drip and increase oral sodium tablets to 2g TID, goal sodium of 130. (2) Generalized weakness: Impression: No change or worsening overnight. Patient is eager to see PT/OT and would like to be able to walk around hospital later today. PT/OT consult order placed, they will see him today. 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 (4) COPD (chronic obstructive pulmonary disease): Impression: Chronic condition, no acute management needed. Continue home medications. (5) Hypertension, essential, benign: Impression: Chronic condition, no acute management needed. Continue home medications.
[2024-10-29] MEDS: POTASSIUM CHLORIDE 20 MEQ TABLET PO ONE (14:51)
--- NOTE | 2024-10-29 15:25 | OT Plan of Care ---
OT Plan of Care OT Plan of Care: Diagnosis Diagnosis syncope; hyponatremia Diagnosis head laceration Chief Complaint fall Onset of Chief Complaint DIRECTOR MEDIA Surgical History (Updated 08/26/24 @ 12:03 by Inna Huerta MD) H/O arthroscopic knee surgery 08/2010 (R), 09/2010 (L) History of bilateral knee replacement History of cystoscopy History of knee replacement Medical History (Updated 10/28/24 @ 17:31 by Kyle Kent) Acute hyponatremia ACL (anterior cruciate ligament) rupture Dupuytren contracture Near syncope EMS call 05/2013>[facility], [place] amb report 07/2023 w NSR, one 21 beat episode of 107 Hernia Assessment Assessment Pt is a 74-year-old gentleman with stage IV bladder cancer undergoing treatment. Seen recently for new neuropathy and d/c home with medication regimen. Recent admissions for syncopal episodes. Met supine in bed, A&Ox4, willing to participate with therapy. Follows 100 % commands. Pt performed functional mobility and simple ADL's CGA using RW - Pt declining use of AE however demonstrates LOB without use - Therapist strongly recommending for safety. No further skilled OT needs at this time - Cont with PT for mobility and balance needs. rec d/c home with family assist and use of AE/DME as discussed for safety. Goals - Activities of Daily Living Improve Grooming/Hygiene to: Independent Plan Treatment Frequency Evaluation only, no further O.T. Duration Until discharge -Discharge Recommendations Discharge Location Previous Living Situation Transport Needs at Discharge Personal vehicle
--- NOTE | 2024-10-29 15:29 | PT Plan of Care ---
PT Plan of Care Physical Therapy Plan of Care: Diagnosis Diagnosis syncope; hyponatremia Diagnosis head laceration Referring Provider Dean Chong Patient Status ED Chief Complaint Chief Complaint fall Onset of Chief Complaint RECORDS MANAGEMENT ASSISTANT Medical History (Updated 10/28/24 @ 17:31 by Kyle Kent) Acute hyponatremia ACL (anterior cruciate ligament) rupture Dupuytren contracture Near syncope EMS call 05/2013>[facility], [place] amb report 07/2023 w NSR, one 21 beat episode of 107 Hernia Surgical History (Updated 08/26/24 @ 12:03 by Inna Huerta MD) H/O arthroscopic knee surgery 08/2010 (R), 09/2010 (L) History of bilateral knee replacement History of cystoscopy History of knee replacement Balance/ Functional Results Sitting Balance Good Standing Balance Fair Tinetti Composite Score ( 19 Balance + Gait) Tinetti Assessment Moderate Fall Risk Interpretation Assessment Assessment Pt is a 74yo M referred for PT eval d/t frequent falls at home. Pt is known to this PT having been evaluated during recent ED visit. Dc rec at that time was SNF; per chart review pt dc'd home. Pt is normally indep in [facility] w/ 1STE with with "Heather" however has had frequent falls at home lately with several injuries including head laceration. Upon PT eval, pt transfers with CGA and amb with IV pole and CGA. Pt refuses AD use however has a moderate fall risk per Tinetti score of 19/28. PT advised pt to use cane or walker d/t fall risk and pt agrees. AD left in room for pt use. Given above impairments , pt may benefit from skilled PT to improve activity tolerance and reduce fall risk. When medically clear, PT rec dc to SNF vs home pending progress. Will update recs closer to time of dc. Goals Improve bed mobility to: Modified Independent Improve supine to sit to: Modified Independent Improve sit to stand to: Modified Independent Improve pivot transfer ability Modified Independent to: Improve sit to supine to: Modified Independent Improve gait ability to: CGA Assistive Device Used: Front Wheeled Walker,Quad Cane Improve Sitting Balance to: Good Improve Standing Balance to: Good PT Plan of Care Frequency 1-2x/day Duration Until goals are met Discharge Recommendations Discharge Location SNF vs home Support/Services Needed Home Health P.T. DC Equipment Recommended Front wheeled walker Other pt reports he has FWW Transport Needs at Discharge Personal vehicle
[2024-10-29] MEDS: SENNA 8.6 MG TABLET PO SCH (17:32)
[2024-10-29] MEDS: SILVER SULFADIAZINE CREAM 25 GM TUBE TOP SCH (20:03)
[2024-10-29] MEDS: MIRTAZAPINE 15 MG TABLET PO SCH (20:10)
[2024-10-30 06:08] LABS: BASOPHILS % (AUTO) 0.1 %; HCT - HEMATOCRIT 33.7 % (42.0-52.0); HGB - HEMOGLOBIN 11.7 g/dL (14.0-18.0); LYMPHOCYTES # (AUTO) 0.8 10^3/uL (1.5-3.5); LYMPHOCYTES % (AUTO) 11.7 %; MEAN CORPUSCULAR HEMOGLOBIN 32.1 pg (27.0-31.0); MEAN CORPUSCULAR HGB CONC 34.7 g/dL (32.0-36.0); MEAN CORPUSCULAR VOLUME 92.6 fL (80.0-94.0); MEAN PLATELET VOLUME 9.6 fL (7.4-11.4); MONOCYTES % (AUTO) 13.6 %; NEUTROPHILS % (AUTO) 71.7 %; PLT - PLATELET COUNT 259 10^3/uL (130-450); RED BLOOD COUNT 3.64 10^6/uL (4.70-6.10); RED CELL DISTRIBUTION WIDTH 16.1 % (12.0-15.0)
[2024-10-30 06:15] LABS: CALCIUM, IONIZED 1.14 mmol/L (1.09-1.30)
[2024-10-30 06:24] LABS: CALCIUM 8.1 mg/dL (8.5-10.3); CREATININE 0.8 mg/dL (0.6-1.3); POTASSIUM 3.7 mmol/L (3.5-4.5)
[2024-10-30] MEDS ORDERED: SILVER SULFADIAZINE CREAM 25 GM TUBE TOP PRN (07:52)
[2024-10-30] MEDS: MULTIVITAMIN W/MINERALS TABLET PO SCH (08:19)
[2024-10-30] MEDS: DOCUSATE SODIUM 250 MG CAPSULE PO SCH (08:19)
[2024-10-30 16:03] VITALS: BP 149/78; TEMP 97.7; O2SAT 98
--- NOTE | 2024-10-30 16:17 | Discharge Summary ---
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 Pt of Dr Perdue oncology and on active chemo therapy treatment for stage Zaira bladder cancer with Pembrolizumag + Enfortumab. He c/o increased tiredness, weakness, unable to walk on his own without assistance, and feeling extremely thirsty. He says he has been feeling increased nausea when eating, has had decreased appetite. He states he was recently seen in the last couple of weeks for similar symptoms with low sodium levels. He was prescribed sodium tabs on the last visit but had not been taking them stating he didn't like them. ED labs displayed hyponeutremia 125, hypokalemic 3.5, elevated BUN 23, elevated AST 81 and ALT 106. Last ED visit 10/23/24 he was given Gabapentin for pain, causing widspread severe blister/rash reaction. He states he denies headache, blurred vision, shortness of breath, chest pain, abd pain, numbness and tingling in extremities. HOSPITAL COURSE Hospital Course: He was admitted to the hospital and placed on high-dose p.o. salt replacement as well as normal saline IV. His sodium levels were trended, and they are now 128. Looking back on historical lab values, it looks like his normal range is between Mid 120s to low 130s. His generalized weakness has resolved, and he would very much like to go home. I am increasing his dose of salt tabs, and encouraged him to follow-up rapidly with his primary care provider. ALLERGIES Allergies Allergy/AdvReac Type Severity Reaction Status Date / Time gabapentin Allergy Intermediate Blistering Verified 10/28/24 14:57 Whole Body MEDICATIONS Ambulatory Orders Medication Instructions Recorded Confirmed furosemide 20 mg tablet 20 mg PO DAILY 04/22/24 10/28/24 telmisartan 40 mg tablet 40 mg PO QDAY 08/04/24 10/28/24 Lactobacillus acidophilus 10 100 mmu cells PO DAILY 08/26/24 10/28/24 billion cell capsule (Probacap) diltiazem HCl 240 mg capsule,24 240 mg PO DAILY 08/26/24 10/28/24 hr,extended release ondansetron HCl 8 mg tablet 8 mg PO Q8H PRN nausea and vomiting 08/26/24 10/28/24 gabapentin 300 mg capsule 300 mg PO TID PRN neuropathic pain 10/19/24 10/28/24 #60 caps pyridoxine (vitamin B6) 50 mg 50 mg PO DAILY 10/21/24 10/28/24 capsule (Vitamin B-6) cetirizine 10 mg tablet 10 mg PO BID #14 tabs 10/23/24 10/28/24 dexamethasone 4 mg tablet 4 mg PO DAILY #7 tabs 10/23/24 10/28/24 mirtazapine 15 mg tablet 15 mg PO QPM 30 days #30 tabs 10/30/24 silver sulfadiazine 1 % topical 1 applic topical BID PRN skin 10/30/24 cream irritation 30 days #20 grams sodium chloride 1,000 mg soluble 1,000 mg PO BIDWM #30 tabs 10/30/24 10/28/24 tablet PHYSICAL EXAM AT DISCHARGE General Appearance: positive No acute distress and Alert Eyes Bilateral: positive Normal inspection and PERRL ENT: positive ENT inspection nml Neck: positive Nml inspection Respiratory: positive Chest non-tender Cardiovascular: positive Regular rate & rhythm Peripheral Pulses: positive 2+ Abdomen: positive Non-tender Skin: positive Skin rash Extremities: positive Non-tender Neurologic/Psychiatric: positive Oriented x3 LABS 10/30/24 05:31 10/30/24 14:41 FOLLOW UP Follow Up: With PCP TIME SPENT Time Spent in Discharge (Minutes): 35 Discharge Plan Discharge Patient Disposition: 01 Home, Self Care Condition: Good Medically Cleared Date:: 10/30/24 Prescriptions: New silver sulfadiazine 1 % Cream 1 applic topical BID PRN (Reason: skin irritation) 30 Days Qty: 20 0RF mirtazapine 15 mg Tablet 15 mg PO QPM 30 Days Qty: 30 0RF Continued furosemide 20 MG tablet 20 mg PO DAILY diltiazem HCl 240 mg capsule,extended release 24 hr 240 mg PO DAILY ondansetron HCl 8 mg tablet 8 mg PO Q8H PRN (Reason: nausea and vomiting) Probacap 10 billion cell capsule 100 mmu cells PO DAILY gabapentin 300 mg capsule 300 mg PO TID PRN (Reason: neuropathic pain) Qty: 60 0RF Vitamin B-6 50 mg capsule 50 mg PO DAILY dexamethasone 4 mg tablet 4 mg PO DAILY Qty: 7 0RF cetirizine 10 mg tablet 10 mg PO BID Qty: 14 0RF telmisartan 40 mg tablet 40 mg PO QDAY Changed sodium chloride 1,000 mg tablet,soluble 1,000 mg PO BIDWM Qty: 30 0RF Activity Restrictions: No Restrictions Diet: Regular Health Concerns: You came into the hospital for generalized weakness which was due to low sodium levels. We started you on aggressive sodium replacement, and you are feeling better today. I would like for you to follow-up rapidly with your primary care provider. I am sending you home on an increased dose of your salt tabs. I would like for you to take 1 g of salt twice daily. I am also ordering a mirtazapine, since you have had some weight loss recently and I would like that as an appetite stimulant. I am also ordering some silver Silvadene cream to help with your skin problems from your gabapentin dose. Please follow-up with your primary care provider rapidly, report any generalized weakness to your provider. You reported some constipation to me, I would recommend you treat that with [id number] stool softeners. Print Language: Yakut Patient Instructions: Hyponatremia Dc Stand Alone Forms: PCP List
== END 2024-10-30 17:00 | disposition home or self-care (01) | DRG 641 ==
LOC: ED 13:14 → MS2 17:14
PROVIDERS: ADMIT Nurse Practitioner Acute Care; ATTEND Nurse Practitioner Acute Care

== ENCOUNTER 2024-11-14 17:47 | Inpatient (IN) ==
[2024-11-14 18:13] LABS: BASOPHILS % (AUTO) 0.2 %; EOSINOPHILS # (AUTO) 0.1 10^3/uL (0.0-0.7); EOSINOPHILS % (AUTO) 1.2 %; HCT - HEMATOCRIT 31.7 % (42.0-52.0); HGB - HEMOGLOBIN 11.2 g/dL (14.0-18.0); LYMPHOCYTES # (AUTO) 0.9 10^3/uL (1.5-3.5); LYMPHOCYTES % (AUTO) 10.3 %; MEAN CORPUSCULAR HGB CONC 35.3 g/dL (32.0-36.0); MEAN CORPUSCULAR VOLUME 93.5 fL (80.0-94.0); MEAN PLATELET VOLUME 9.6 fL (7.4-11.4); MONOCYTES # (AUTO) 0.7 10^3/uL (0.0-1.0); MONOCYTES % (AUTO) 8.5 %; NEUTROPHILS # (AUTO) 6.6 10^3/uL (1.5-6.6); NEUTROPHILS % (AUTO) 79.4 %; PLT - PLATELET COUNT 116 10^3/uL (130-450); RED BLOOD COUNT 3.39 10^6/uL (4.70-6.10); RED CELL DISTRIBUTION WIDTH 17.3 % (12.0-15.0); WHITE BLOOD COUNT 8.3 x10^3/uL (4.8-10.8)
--- NOTE | 2024-11-14 18:14 | ED Physician Documentation ---
History of Present Illness Stated complaint Stated Complaint: FEVER Chief complaint Chief Complaint: Fever Additonal information Additional information: 74-year-old male currently undergoing chemotherapy for bladder cancer presents to emergency department via EMS for concerns of fevers chills and significant fatigue. Patient has a history of left hydronephrosis, hyponatremia, hyperlipidemia, coronary artery disease, tobacco dependence, hypertension, COPD. He said his last chemotherapy which was completed here in the [facility] clinic with Dr. Schwartz was on Saturday he says normally there is normal fatigue but today he woke feeling severe fatigue to the point where he is having a really hard time staying awake for simple conversations he has very poor appetite and has noticed at home fever and chills. Tmax at home 103 F. Meds/Allgy Home Medications Ambulatory Orders Medication Instructions Recorded Confirmed furosemide 20 mg tablet 20 mg PO DAILY 04/22/24 11/05/24 Lactobacillus acidophilus 10 100 mmu cells PO DAILY 08/26/24 11/05/24 billion cell capsule (Probacap) diltiazem HCl 240 mg capsule,24 240 mg PO DAILY 08/26/24 11/05/24 hr,extended release ondansetron HCl 8 mg tablet 8 mg PO Q8H PRN nausea and vomiting 08/26/24 11/05/24 pyridoxine (vitamin B6) 50 mg 50 mg PO DAILY 10/21/24 11/05/24 capsule (Vitamin B-6) mirtazapine 15 mg tablet 15 mg PO QPM #90 tabs 11/05/24 11/05/24 silver sulfadiazine 1 % topical 1 applic topical BID PRN skin 11/05/24 11/05/24 cream irritation #50 grams sodium chloride 1,000 mg soluble 1,000 mg PO BID #180 tabs 11/05/24 11/05/24 tablet Allergies Allergies Allergy/AdvReac Type Severity Reaction Status Date / Time gabapentin Allergy Intermediate Blistering Verified 11/14/24 17:58 Whole Body PFSH Active Problems All Active Problems (Updated 11/14/24 @ 21:35 by Hanane Dowell, RN, BSN) Hyponatremia (Acute) Bladder cancer (Acute) Acute on chronic hypoxic respiratory failure (Acute) Hypertension, essential, benign (Acute) Chronic hyponatremia (Acute) Drug-induced bullous pemphigoid (Acute) Syncope (Acute) Neuropathy (Acute) History of adenomatous polyp of colon (Acute) Tobacco abuse (Acute) Coronary artery disease (Acute) Bilateral lower extremity edema (Acute) Bladder cancer metastasized to intrapelvic lymph nodes (Acute) Hyperlipidemia (Acute) Hyponatremia (Acute) Screening for malignant neoplasm of prostate (Acute) Pulmonary nodule (Acute) Encounter for education about infusion care (Acute) Encounter for antineoplastic chemotherapy and immunotherapy (Acute) Health care maintenance (Acute) Hydronephrosis, left (Acute) Medical History Medical History (Updated 11/14/24 @ 21:35 by Hanane Dowell RN, BSN) Acute hyponatremia Bladder cancer metastasized to intrapelvic lymph nodes COPD (chronic obstructive pulmonary disease) FVC, FEV1, FEV1/FVC ratio are reduced indicating airway obstruction. Slow vital capacity reduced. Following bronchodilators there is a significant improvement in FVC. Acute hyponatremia ACL (anterior cruciate ligament) rupture Dupuytren contracture Near syncope EMS call 05/2013>[facility], [place] amb report 07/2023 w NSR, one 21 beat episode of 107 Hernia Surgical History Surgical History H/O arthroscopic knee surgery 08/2010 (R), 09/2010 (L) History of bilateral knee replacement History of cystoscopy History of knee replacement Family History Family History Father Heart attack Mother Well adult on routine health check Brother Melanoma of shoulder Brother CAD (coronary artery disease) Atrial fibrillation Sister Well adult on routine health check Son Well adult on routine health check Social History Social History Smoking Status: Current every day smoker Number of Years Smoked: 60 How many cigarettes a day do you smoke? (20 cigarettes=1 Pk): 10 Second hand tobacco smoke exposure: No Do you dip or chew tobacco?: No Do you vape?: No Patient requests smoking cessation consult: No Initiate information on smoking cessation: No Living arrangement: At home Marital Status: Living Condition: With spouse/s.o. Support Person: Yes Relationship: Physical Activity: Walking Level: Independent Home Mobility Equipment: Wheeled walker Do you feel safe in your home environment?: Yes Suffered physical, verbal, emotional, or financial abuse?: No History of Abuse: No ETOH Use: Beer Frequency: Daily Number of Amount/day: 8 ETOH Use Details: very little Substance Use: denies use POLST Patient has POLST: Yes POLST Status: DNR Exam Constitutional normal general appearance, no apparent distress, average body habitus, no limitations and alert HENMT normocephalic and head/scalp atraumatic Eyes PERRL and EOMs intact bilaterally Chest inspection of chest normal Respiratory breath sounds equal bilaterally, normal respiratory effort, clear to auscultation bilaterally and no wheezes Cardiovascular normal heart rate noted Gastrointestinal abdomen normal to inspection Genitourinary no CVA tenderness Neurology curator of manuscripts II-XII intact Psychiatry mental status grossly normal, oriented x3, thought process normal, cooperative and affect normal Skin skin color abnormal (pale) Results Vitals Vitals: Vital Signs - 24 hr 11/14/24 17:51 11/14/24 18:36 11/14/24 18:58 Temperature 37.4 C Temperature Source Oral Pulse Rate 94 Respiratory Rate 20 Blood Pressure 154/75 H O2 Saturation 91 L Oxygen Delivery Method Nasal Cannula O2 Source Room air If not protocol: Oxygen Flow, liters/minute 2 Pain Intensity 0 0 11/14/24 18:58 11/14/24 19:00 Temperature 36.2 C L Temperature Source Temporal Artery Scan Pulse Rate 82 Respiratory Rate 22 Blood Pressure 128/73 O2 Saturation 95 Oxygen Delivery Method O2 Source Nasal cannula If not protocol: Oxygen Flow, liters/minute 2 Pain Intensity 0 0 Oxygen O2 Source Nasal cannula Labs Labs: Laboratory Tests 11/14/24 11/14/24 11/14/24 18:05 18:06 18:29 WBC 8.3 RBC 3.39 L Hgb 11.2 L Hct 31.7 L MCV 93.5 MCH 33.0 H MCHC 35.3 RDW 17.3 H Plt Count 116 L MPV 9.6 Neut # (Auto) 6.6 Lymph # (Auto) 0.9 L Elliott # (Auto) 0.7 Eos # (Auto) 0.1 Baso # (Auto) 0.0 Absolute Nucleated RBC 0.00 Nucleated RBC % 0.0 D-Dimer 667.7 H Sodium 127 L Potassium 3.7 Chloride 94 L Carbon Dioxide 27 Anion Gap 6.0 BUN 14 Creatinine 1.0 Estimated GFR (MDRD) 73 L Glucose 92 Lactic Acid 1.4 Calcium 8.0 L Total Bilirubin 1.5 H AST 38 ALT 36 Alkaline Phosphatase 69 Total Protein 5.8 L Albumin 2.8 L Globulin 3.0 Albumin/Globulin Ratio 0.9 L Lipase 17 Procalcitonin Immunoas 0.31 Urine Color Urine Clarity Urine pH Ur Specific [place] Urine Protein Urine Glucose (UA) Urine Ketones Urine Occult Blood Urine Nitrite Urine Bilirubin Urine Urobilinogen Ur Leukocyte Esterase Urine RBC Urine WBC Urine WBC Clumps Ur Squamous Epith Cells Urine Bacteria Urine Culture Comments Nasal Adenovirus (PCR) NOT DETECTED Nasal B. parapertussis DNA (PCR) NOT DETECTED Nasal Coronavir 229E PCR NOT DETECTED Nasal Coronavir HKU1 PCR NOT DETECTED Nasal Coronavir NL63 PCR NOT DETECTED Nasal Coronavir OC43 PCR NOT DETECTED Nasal Enterovir/Rhinovir PCR NOT DETECTED Nasal Influenza B PCR NOT DETECTED Nasal Influenza A PCR NOT DETECTED Nasal Parainfluen 1 PCR NOT DETECTED Nasal Parainfluen 2 PCR NOT DETECTED Nasal Parainfluen 3 PCR NOT DETECTED Nasal Parainfluen 4 PCR NOT DETECTED Nasal RSV (PCR) NOT DETECTED Nasal B.pertussis DNA PCR NOT DETECTED Nasal C.pneumoniae (PCR) NOT DETECTED Andrea Human Metapneumo PCR NOT DETECTED Nasal M.pneumoniae (PCR) NOT DETECTED Nasal SARS-CoV-2 (PCR) NOT DETECTED 11/14/24 19:20 WBC RBC Hgb Hct MCV MCH MCHC RDW Plt Count MPV Neut # (Auto) Lymph # (Auto) Elliott # (Auto) Eos # (Auto) Baso # (Auto) Absolute Nucleated RBC Nucleated RBC % D-Dimer Sodium Potassium Chloride Carbon Dioxide Anion Gap BUN Creatinine Estimated GFR (MDRD) Glucose Lactic Acid Calcium Total Bilirubin AST ALT Alkaline Phosphatase Total Protein Albumin Globulin Albumin/Globulin Ratio Lipase Procalcitonin Immunoas Urine Color YELLOW Urine Clarity CLEAR Urine pH 7.0 Ur Specific [place] 1.015 Urine Protein NEGATIVE Urine Glucose (UA) NEGATIVE Urine Ketones NEGATIVE Urine Occult Blood TRACE-INTA Urine Nitrite NEGATIVE Urine Bilirubin NEGATIVE Urine Urobilinogen 1 (NORMAL) Ur Leukocyte Esterase NEGATIVE Urine RBC 0-5 Urine WBC 4-5 Urine WBC Clumps PRESENT Ur Squamous Epith Cells RARE Squamous Urine Bacteria Rare Urine Culture Comments NOT INDICATED Nasal Adenovirus (PCR) Nasal B. parapertussis DNA (PCR) Nasal Coronavir 229E PCR Nasal Coronavir HKU1 PCR Nasal Coronavir NL63 PCR Nasal Coronavir OC43 PCR Nasal Enterovir/Rhinovir PCR Nasal Influenza B PCR Nasal Influenza A PCR Nasal Parainfluen 1 PCR Nasal Parainfluen 2 PCR Nasal Parainfluen 3 PCR Nasal Parainfluen 4 PCR Nasal RSV (PCR) Nasal B.pertussis DNA PCR Nasal C.pneumoniae (PCR) Andrea Human Metapneumo PCR Nasal M.pneumoniae (PCR) Nasal SARS-CoV-2 (PCR) Rads (name of study) chest Xray: Relevant Findings:: Final report received and EMP independent interpretation of test Interpretation: IMPRESSION: Peribronchial cuffing with increased interstitial markings, suggestive of mild to moderate pulmonary edema. PD Medical Decision Making ED course ED course: 74-year-old male presents to emergency department for profound fatigue some ongoing shortness of breath after chemoinfusion last administered on Saturday. Upon arrival to the emergency department patient was hypoxic satting at 88% on room air has never required supplemental oxygen in the past. Differentials include but not limited to, CHF, Pneumonia, COPD exacerbation, pulmonary embolism. Labs are complete for further evaluation no leukocytosis mild anemia, hemoglobin 11.2 which appears to be his baseline chronic hyponatremia, sodium level 127 which appears to be his baseline as well. No significant electrolyte abnormalities bilirubin slightly elevated at 1.5 normal AST ALT alk phos urinalysis also unremarkable respiratory swab unremarkable. Chest x-ray is complete for further evaluation and reveals peribronchial cuffing with increased interstitial marking suggestive mild to moderate pulmonary edema CT angio was complete which did not reveal any pulmonary embolism there is some mild dependent consolidation which is attributed to atelectasis. There is also some underlying emphysematous changes. Because of patient's acute respiratory failure with hypoxia he will require hospitalization for further workup and evaluation of this. I spoke with Dean Chong, nurse practitioner, hospitalist who has agreed to admit the patient for further evaluation and monitoring. Patient is agreeable to be hospitalized at this point time. Discharge Plan Discharge Patient Disposition: [facility] DC/Xfer Condition: Fair Clinical Impression: Acute on chronic hypoxic respiratory failure, Bladder cancer, Hyponatremia Interventions: ED Admission Assessment Last Done: 11/14/24 20:58
[2024-11-14 18:33] LABS: ALBUMIN 2.8 g/dL (3.2-5.5); ALBUMIN/GLOBULIN RATIO 0.9 (1.0-2.2); BILIRUBIN,TOTAL 1.5 mg/dL (0.2-1.0); POTASSIUM 3.7 mmol/L (3.5-4.5); TOTAL PROTEIN 5.8 g/dL (6.4-8.9)
[2024-11-14] MEDS: ACETAMINOPHEN 325 MG TABLET PO STA (18:36)
--- NOTE | 2024-11-14 19:05 | XRAY Report ---
PROCEDURE: XR Chest 1V INDICATIONS: Sepsis TECHNIQUE: One view of the chest was acquired. COMPARISON: 10/23/2024 FINDINGS: Surgical changes and devices: Left chest wall port hip projects over the high right atrium. Lungs and pleura: Peribronchial cuffing with increased interstitial markings. No effusions or pneumo thorax. Mediastinum: Mediastinal contours appear normal. Heart size is normal. Bones and chest wall: No suspicious bony lesions. Overlying soft tissues appear unremarkable. IMPRESSION: Peribronchial cuffing with increased interstitial markings, suggestive of mild to moderate pulmonary edema. Reviewed by: Juan José Harrison MD on 11/14/2024 7:04 PM PST Approved by: Juan José Harrison MD on 11/14/2024 7:04 PM PST Station ID: [id number]
[2024-11-14 19:32] LABS: B. PARAPERTUSSIS- RESP PCR PAN NOT DETECTED; B. PERTUSSIS- RESP PCR PANEL NOT DETECTED; C. PNEUMONIAE- RESP PCR PANEL NOT DETECTED; CORONAVIRUS 229E-RESP PCR NOT DETECTED; CORONAVIRUS HKU1-RESP PCR NOT DETECTED; CORONAVIRUS NL63-RESP PCR NOT DETECTED; CORONAVIRUS OC43-RESP PCR NOT DETECTED; HUMAN METAPNEUMOVIRUS NOT DETECTED; INFLUENZA A- RESP PCR PANEL NOT DETECTED; INFLUENZA B - RESP PCR PANEL NOT DETECTED; M. PNEUMONIAE- RESP PCR PANEL NOT DETECTED; PARAINFLUENZA VIRUS 1 NOT DETECTED; PARAINFLUENZA VIRUS 2 NOT DETECTED; PARAINFLUENZA VIRUS 4 NOT DETECTED; RHINOVIRUS/ENTEROVIRUS NOT DETECTED; RSV- RESP PCR PANEL NOT DETECTED; SARS-CoV-2 -RESP PCR PANEL NOT DETECTED
[2024-11-14 19:38] LABS: BILIRUBIN,URINE NEGATIVE (NEGATIVE); GLUCOSE, URINE (UA) NEGATIVE (NEGATIVE); KETONES,URINE (UA) NEGATIVE (NEGATIVE); LEUKOCYTE ESTERASE, URINE NEGATIVE (NEGATIVE); NITRITE,URINE NEGATIVE (NEGATIVE); OCCULT BLOOD,URINE TRACE-INTA (NEGATIVE); PROTEIN,URINE NEGATIVE (NEGATIVE); UROBILINOGEN,URINE 1 (NORMAL) E.U./dL (NORMAL)
[2024-11-14 19:42] LABS: CLARITY,URINE CLEAR (CLEAR)
[2024-11-14 19:49] LABS: BACTERIA,URINE Rare /HPF (None Seen); RBC,URINE 0-5 /HPF (0-5); SQUAMOUS EPITHELIAL CELL,UR RARE Squamous (<= Few); WBC CLUMPS,URINE PRESENT
[2024-11-14] MEDS: SODIUM CHLORIDE 0.9% 1,000 ML IV STA (19:53)
--- NOTE | 2024-11-14 20:17 | HISTORY & PHYSICAL EXAMINATION ---
Chief Complaint Chief Complaint Chief Complaint: Generalized weakness, drowsiness History of Present Illness Admitted From Admitted From:: Home with History Obtained From History obtained from: Interview with patient and History of Present Illness HPI Comment/Other: 74-year-old male undergoing chemotherapy for bladder cancer presented to the ED with fever, chills, significant fatigue. He reports he has been unable to stay awake for any significant amount of time today. Has history of chronic hyponatremia on p.o. supplementation, hyperlipidemia, CAD, hypertension, COPD. He states that he normally gets fatigue from his chemotherapy here in the [facility] clinic, last treatment was on Saturday. He reports today he was unable to stay awake for simple conversations and noticed fevers at home up to 103 F In the ER, chest x-ray was performed which showed peribronchial cuffing within the Triest interstitial markings, suggestive of pulmonary edema. Lab work was overall unremarkable other than his chronically low sodium. No elevation in WBC, no neutropenia, negative respiratory viral panel he did, however, required 2 L oxygen in the ER, so hospitalist was contacted for admission for acute on chronic hypoxic respiratory failure Meds/Allgy Home Medications Ambulatory Orders Medication Instructions Recorded Confirmed furosemide 20 mg tablet 20 mg PO DAILY 04/22/24 11/05/24 Lactobacillus acidophilus 10 100 mmu cells PO DAILY 08/26/24 11/05/24 billion cell capsule (Probacap) diltiazem HCl 240 mg capsule,24 240 mg PO DAILY 08/26/24 11/05/24 hr,extended release ondansetron HCl 8 mg tablet 8 mg PO Q8H PRN nausea and vomiting 08/26/24 11/05/24 pyridoxine (vitamin B6) 50 mg 50 mg PO DAILY 10/21/24 11/05/24 capsule (Vitamin B-6) mirtazapine 15 mg tablet 15 mg PO QPM #90 tabs 11/05/24 11/05/24 silver sulfadiazine 1 % topical 1 applic topical BID PRN skin 11/05/24 11/05/24 cream irritation #50 grams sodium chloride 1,000 mg soluble 1,000 mg PO BID #180 tabs 11/05/24 11/05/24 tablet Allergies Allergies Allergy/AdvReac Type Severity Reaction Status Date / Time gabapentin Allergy Intermediate Blistering Verified 11/14/24 17:58 Whole Body PFSH Active Problems All Active Problems (Updated 11/14/24 @ 19:26 by Anna Summers DNP) Hyponatremia (Acute) Bladder cancer (Acute) Acute on chronic hypoxic respiratory failure (Acute) Hypertension, essential, benign (Acute) Chronic hyponatremia (Acute) Drug-induced bullous pemphigoid (Acute) Syncope (Acute) Neuropathy (Acute) History of adenomatous polyp of colon (Acute) Tobacco abuse (Acute) Coronary artery disease (Acute) Bilateral lower extremity edema (Acute) Bladder cancer metastasized to intrapelvic lymph nodes (Acute) Hyperlipidemia (Acute) Hyponatremia (Acute) Screening for malignant neoplasm of prostate (Acute) Pulmonary nodule (Acute) Encounter for education about infusion care (Acute) Encounter for antineoplastic chemotherapy and immunotherapy (Acute) Health care maintenance (Acute) Hydronephrosis, left (Acute) Medical History Medical History (Updated 11/14/24 @ 19:26 by Anna Summers DNP) Acute hyponatremia Bladder cancer metastasized to intrapelvic lymph nodes COPD (chronic obstructive pulmonary disease) FVC, FEV1, FEV1/FVC ratio are reduced indicating airway obstruction. Slow vital capacity reduced. Following bronchodilators there is a significant improvement in FVC. Acute hyponatremia ACL (anterior cruciate ligament) rupture Dupuytren contracture Near syncope EMS call 05/2013>[facility], [place] amb report 07/2023 w NSR, one 21 beat episode of 107 Hernia Surgical History Surgical History H/O arthroscopic knee surgery 08/2010 (R), 09/2010 (L) History of bilateral knee replacement History of cystoscopy History of knee replacement Family History Family History Father Heart attack Mother Well adult on routine health check Brother Melanoma of shoulder Brother CAD (coronary artery disease) Atrial fibrillation Sister Well adult on routine health check Son Well adult on routine health check Social History Social History Smoking Status: Current every day smoker Number of Years Smoked: 50 How many cigarettes a day do you smoke? (20 cigarettes=1 Pk): 1 Second hand tobacco smoke exposure: Yes Do you dip or chew tobacco?: No Do you vape?: No Patient requests smoking cessation consult: No Initiate information on smoking cessation: No Living arrangement: At home Marital Status: Living Condition: With spouse/s.o. Support Person: Yes Relationship: Physical Activity: Walking Level: Assisted Home Mobility Equipment: Wheeled walker Do you feel safe in your home environment?: Yes Suffered physical, verbal, emotional, or financial abuse?: No History of Abuse: No ETOH Use: Beer Frequency: Daily Number of Amount/day: 8 ETOH Use Details: very little Substance Use: denies use POLST Patient has POLST: Yes POLST Status: DNR Review of Systems Status of ROS: 10 or more systems reviewed and unremarkable except as noted in history and below Constitutional Reports: Fever and Chills Cardiovascular Reports: shortness of breath with exertion; Denies: Irregular heart rate, chest pain or palpitations Respiratory Reports: Shortness of breath; Denies: Cough or Sputum production Gastrointestinal Denies: Abdominal pain Genitourinary Denies: Painful urination Neurological Reports: General weakness Exam Constitutional normal general appearance and no apparent distress HENMT normocephalic and head/scalp atraumatic Eyes PERRL Neck/C-Spine visual inspection normal Lymph no lymphadenopathy noted Chest inspection of chest normal Respiratory breath sounds equal bilaterally and no wheezes Cardiovascular normal heart rate noted and regular rhythm noted Gastrointestinal abdomen normal to inspection Neurology GCS 15 Psychiatry oriented x3 Skin Extremely tanned skin. Looks improved from prior hospitalization Conclusion/Plan Problem List (1) Acute on chronic hypoxic respiratory failure: Plan: He has history of COPD No wheezes on exam Respiratory viral panel negative I will empirically cover for COPD exacerbation with prednisone 40 mg p.o. daily Check D-dimer Check procalcitonin to see if there is a superimposed pneumonia May need home O2 eval He reports having a recent outpatient echocardiogram with no significant reduction in EF, Will attempt to get these records tomorrow (2) Hyponatremia: Plan: He is chronically hyponatremic. His sodium level is the same as it was when he was discharged 2 weeks ago. I will continue his twice daily salt tabs, 2 g He is asymptomatic and at his baseline, so no need for intensive sodium monitoring (3) Bladder cancer metastasized to intrapelvic lymph nodes: Plan: Followed by Dr. Schwartz Received C4 D1 of L1: Pembrolizumab + Enfortumab on 11/09/2024 This is likely the cause of his generalized weakness, drowsiness Per Dr. Schwartz's note, plan for 1 more dose of chemotherapy on Avinash No significant alteration in WBC count, febrile neutropenia not likely Plan Admit inpatient med floor DNR per POLST, patient agrees His is his surrogate decision-maker Lab Results 11/14/24 18:05 11/14/24 18:05
[2024-11-14] MEDS ORDERED: iohexoL-300 100 ML VIAL ONE (20:35)
[2024-11-14] MEDS: iohexoL-300 100 ML VIAL IVP ONE (21:09)
--- NOTE | 2024-11-14 21:28 | CT Report ---
PROCEDURE: CT Angio Chest INDICATIONS: Rule out PE CONTRAST: 100 ML OMNI 300 TECHNIQUE: After the administration of intravenous contrast, 2 mm axial images were acquired from the pulmonary apices to the posterior costophrenic angles during the arterial phase. In addition, 1 mm lung kernel and 5 mm soft tissue kernel reconstructions were performed. 3-dimensional coronal oblique maximum int ensity projection (MIP) reformats, 8 mm axial MIP, and 5 mm coronal and sagittal MPR reformats were t hen performed through the thorax. For radiation dose reduction, the following was used: automated exp osure control, adjustment of mA and/or kV according to patient size. COMPARISON: 10/20/2024 FINDINGS: Image quality: There is streak artifact seen through the level of the shoulders. Large vessels: No filling defects within the opacified pulmonary arteries, accounting for motion and contrast timing. N o evidence of acute aortic syndrome or aortic aneurysm. Lungs and pleura: Dependent consolidation can be seen on both sides. Underlying emphysematous change can be seen, subpleural bleb formation. No pleural effusions. No pneumothorax. No suspicious pulmona ry nodules which require follow up. Mediastinum: Moderate coronary calcification is seen. Heart size is normal. No pericardial effusion. No large vessel abnormality. No mediastinal adenopathy by size criteria. Chest wall and lower neck: There is a left-sided chest port. Thyroid is unremarkable. No axillary or supraclavicular adenopathy by size. Bones: No aggressive osseous abnormality. Age-appropriate degenerative changes are seen. Upper Abdomen: Unremarkable. IMPRESSION: No definite pulmonary embolism is seen. Mild dependent consolidation is seen, which is attributed to atelectasis. Underlying emphysematous changes are seen. Additional findings: Left sided chest port Moderate coronary calcification Reviewed by: Julius Kraft MD on 11/14/2024 8:27 PM [facility] Approved by: Julius Kraft MD on 11/14/2024 8:27 PM [facility] Station ID: [id number]
[2024-11-14] MEDS: predniSONE 20 MG TABLET PO SCH (21:36)
[2024-11-14] MEDS ORDERED: hydrOXYzine PAMOATE 25 MG CAPSULE PO PRN (21:39)
[2024-11-14] MEDS ORDERED: ONDANSETRON 4 MG/2 ML VIAL IVP PRN (21:39)
[2024-11-14] MEDS ORDERED: SODIUM CHLORIDE FLUSH 0.9% 10 ML SYRINGE IVP PRN (21:39)
[2024-11-14] MEDS ORDERED: ACETAMINOPHEN 325 MG TABLET PO PRN (21:39)
[2024-11-14] MEDS ORDERED: ONDANSETRON ODT 4 MG TABLET TL PRN (21:39)
[2024-11-14] MEDS: SODIUM CHLORIDE 1 GM TABLET PO SCH (22:26)
[2024-11-14] MEDS: MELATONIN 3 MG TABLET PO SCH (22:26)
[2024-11-14] MEDS: SODIUM CHLORIDE FLUSH 0.9% 10 ML SYRINGE IVP SCH (23:45)
[2024-11-15 05:30] LABS: HCT - HEMATOCRIT 33.1 % (42.0-52.0); HGB - HEMOGLOBIN 11.3 g/dL (14.0-18.0); LYMPHOCYTES # (AUTO) 0.3 10^3/uL (1.5-3.5); LYMPHOCYTES % (AUTO) 6.2 %; MEAN CORPUSCULAR HEMOGLOBIN 32.4 pg (27.0-31.0); MEAN CORPUSCULAR HGB CONC 34.1 g/dL (32.0-36.0); MEAN CORPUSCULAR VOLUME 94.8 fL (80.0-94.0); MEAN PLATELET VOLUME 9.6 fL (7.4-11.4); MONOCYTES # (AUTO) 0.1 10^3/uL (0.0-1.0); MONOCYTES % (AUTO) 2.7 %; NEUTROPHILS # (AUTO) 3.7 10^3/uL (1.5-6.6); NEUTROPHILS % (AUTO) 90.6 %; PLT - PLATELET COUNT 129 10^3/uL (130-450); RED BLOOD COUNT 3.49 10^6/uL (4.70-6.10); RED CELL DISTRIBUTION WIDTH 17.1 % (12.0-15.0)
[2024-11-15 05:51] LABS: CALCIUM 8.1 mg/dL (8.5-10.3); CREATININE 0.8 mg/dL (0.6-1.3)
[2024-11-15] MEDS: ENOXAPARIN 40 MG/0.4 ML SYRINGE SUBQ SCH (08:29)
--- NOTE | 2024-11-15 12:29 | PHARMACY PROGRESS NOTE ---
Best Possible Medication History Admit Date and Time: 11/14/241954 Home Medications Medication Instructions Recorded Confirmed Type furosemide 20 mg tablet 20 mg PO DAILY 04/22/24 11/15/24 History Lactobacillus acidophilus 10 100 mmu cells PO DAILY 08/26/24 11/15/24 History billion cell capsule (Probacap) diltiazem HCl 240 mg capsule,24 240 mg PO DAILY 08/26/24 11/15/24 History hr,extended release pyridoxine (vitamin B6) 50 mg 100 mg PO DAILY 10/21/24 11/15/24 History capsule (Vitamin B-6) mirtazapine 15 mg tablet 15 mg PO QPM #90 tabs 11/05/24 11/15/24 Rx sodium chloride 1,000 mg soluble 1,000 mg PO BID #180 tabs 11/05/24 11/15/24 Rx tablet Processed by: Pharmacy Medications reviewed in ED?: No Medication History completed: Yes Patient Interview: Completed Secondary Source(s): Pharmacy records, Insurance records and Previous admit records [facility] Statement: As the person ultimately responsible for medication therapy, providers are able to order a medication from an existing home medication list in [facility] via the "Reconcile Routine" prior to Confirmation of that medication by family support coordinator. Such practice is discouraged except when the physician, in their clinical judgment, deems that a medical need exists for a medication without regard to previous use.
--- NOTE | 2024-11-15 13:10 | PROVIDER PROGRESS NOTE ---
Subjective Prog Note Date Prog Note Date: 11/15/24 Subjective Pt reports feeling: No change Current Medications Current Medications Current Medications: Current Medications Generic Name Dose Route Start Last Admin Trade Name Freq PRN Reason Stop Dose Admin Acetaminophen 650 mg 11/14/24 21:39 Acetaminophen 325 Mg Tablet PO Q4HR PRN Pain 1 to 4, or Fever Enoxaparin Sodium 40 mg 11/15/24 09:00 11/15/24 08:29 Enoxaparin 40 Mg/0.4 Ml Syringe SUBQ 40 mg DAILY ARIANE Administration Hydroxyzine Pamoate 25 mg 11/14/24 21:39 Hydroxyzine Pamoate 25 Mg Capsule PO QPM PRN Insomnia Melatonin 3 mg 11/14/24 21:39 11/14/24 22:26 Melatonin 3 Mg Tablet PO 3 mg QPM ARIANE Administration Ondansetron HCl 4 mg 11/14/24 21:39 Ondansetron Odt 4 Mg Tablet TL Q6HR PRN Nausea / Vomiting Ondansetron HCl 4 mg 11/14/24 21:39 Ondansetron 4 Mg/2 Ml Vial IVP Q6HR PRN Nausea / Vomiting Prednisone 40 mg 11/14/24 20:00 11/15/24 08:30 Prednisone 20 Mg Tablet PO 40 mg DAILYWM ARIANE Administration Sodium Chloride 1 gm 11/14/24 21:39 11/15/24 08:30 Sodium Chloride 1 Gm Tablet PO 1 gm BID ARIANE Administration Sodium Chloride 10 ml 11/14/24 21:39 Sodium Chloride Flush 0.9% 10 Ml Syringe IVP PRN PRN NEEDED PER PROVIDER ORDERS Sodium Chloride 10 ml 11/15/24 01:00 11/15/24 08:30 Sodium Chloride Flush 0.9% 10 Ml Syringe IVP 10 ml 0100,0900,1700 ARIANE Administration Objective Vital Signs/Intake & Output Reviewed Vital Signs: Yes Vital Signs: Vital Signs x48h Temp Pulse Pulse Resp BP Pulse Ox 11/15/24 12:02 36.5 C 86 20 124/74 92 11/15/24 07:55 36.3 C L 83 18 131/80 H 94 Intake & Output: Intake & Output 11/12/24 11/13/24 11/14/24 11/15/24 23:59 23:59 23:59 23:59 Intake Total 1100 / 1100 350 / 350 Output Total 1300 / 1300 Balance 1100 / 1100 -950 / -950 Weight (kg) 69.5 kg Objective General Appearance: positive No acute distress and Alert Eyes Bilateral: positive Normal inspection and PERRL ENT: positive ENT inspection nml Neck: positive Nml inspection Respiratory: positive Chest non-tender, No respiratory distress and Breath sounds nml Cardiovascular: positive Regular rate & rhythm Abdomen: positive Non-tender Back: positive Nml inspection Skin: positive Other (healing bullous pemphigoid ) Extremities: positive Non-tender and Full ROM Neurologic/Psychiatric: positive Oriented x3, CN's nml (2-12), Motor nml, Sensation nml and Mood/affect nml Lab Results 11/15/24 05:09 11/15/24 05:09 Other Labs: Lab Results x24hrs 11/15/24 11/14/24 11/14/24 Range/Units 05:09 19:20 18:29 WBC 4.0 L (4.8-10.8) x10^3/uL RBC 3.49 L (4.70-6.10) 10^6/uL Hgb 11.3 L (14.0-18.0) g/dL Hct 33.1 L (42.0-52.0) % MCV 94.8 H (80.0-94.0) fL MCH 32.4 H (27.0-31.0) pg MCHC 34.1 (32.0-36.0) g/dL RDW 17.1 H (12.0-15.0) % Plt Count 129 L (130-450) 10^3/uL MPV 9.6 (7.4-11.4) fL Neut # (Auto) 3.7 (1.5-6.6) 10^3/uL Lymph # (Auto) 0.3 L (1.5-3.5) 10^3/uL [place] # (Auto) 0.1 (0.0-1.0) 10^3/uL Eos # (Auto) 0.0 (0.0-0.7) 10^3/uL Baso # (Auto) 0.0 (0.0-0.1) 10^3/uL Absolute Nucleated RBC 0.00 x10^3/uL Nucleated RBC % 0.0 /100WBC D-Dimer (200.0-255.0) ng/mL Sodium 129 L (135-145) mmol/L Potassium 4.0 (3.5-4.5) mmol/L Chloride 98 L (101-111) mmol/L Carbon Dioxide 26 (21-32) mmol/L Anion Gap 5.0 L (6-13) BUN 12 (6-20) mg/dL Creatinine 0.8 (0.6-1.3) mg/dL Estimated GFR (MDRD) 94 (>89) Glucose 141 H (74-104) mg/dL Lactic Acid 1.4 (0.5-2.2) mmol/L Calcium 8.1 L (8.5-10.3) mg/dL Total Bilirubin (0.2-1.0) mg/dL AST (10-42) IU/L ALT (10-60) IU/L Alkaline Phosphatase (42-121) IU/L Total Protein (6.4-8.9) g/dL Albumin (3.2-5.5) g/dL Globulin (2.1-4.2) g/dL Albumin/Globulin Ratio (1.0-2.2) Lipase (11-82) U/L Procalcitonin Immunoas (<0.5) ng/mL Urine Color YELLOW Urine Clarity CLEAR (CLEAR) Urine pH 7.0 (5.0-7.5) PH Ur Specific [place] 1.015 (1.002-1.030) Urine Protein NEGATIVE (NEGATIVE) mg/dL Urine Glucose (UA) NEGATIVE (NEGATIVE) mg/dL Urine Ketones NEGATIVE (NEGATIVE) mg/dL Urine Occult Blood TRACE-INTA (NEGATIVE) Urine Nitrite NEGATIVE (NEGATIVE) Urine Bilirubin NEGATIVE (NEGATIVE) Urine Urobilinogen 1 (NORMAL) (NORMAL) E.U./dL Ur Leukocyte Esterase NEGATIVE (NEGATIVE) Urine RBC 0-5 (0-5) /HPF Urine WBC 4-5 (0-3) /HPF Urine WBC Clumps PRESENT Ur Squamous Epith Cells RARE Squamous (<= Few) Urine Bacteria Rare (None Seen) /HPF Urine Culture Comments NOT INDICATED Nasal Adenovirus (PCR) Nasal B. parapertussis DNA (PCR) Nasal Coronavir 229E PCR Nasal Coronavir HKU1 PCR Nasal Coronavir NL63 PCR Nasal Coronavir OC43 PCR Nasal Enterovir/Rhinovir PCR Nasal Influenza B PCR Nasal Influenza A PCR Nasal Parainfluen 1 PCR Nasal Parainfluen 2 PCR Nasal Parainfluen 3 PCR Nasal Parainfluen 4 PCR Nasal RSV (PCR) Nasal B.pertussis DNA PCR Nasal C.pneumoniae (PCR) Andrea Human Metapneumo PCR Nasal M.pneumoniae (PCR) Nasal SARS-CoV-2 (PCR) 11/14/24 11/14/24 Range/Units 18:06 18:05 WBC 8.3 (4.8-10.8) x10^3/uL RBC 3.39 L (4.70-6.10) 10^6/uL Hgb 11.2 L (14.0-18.0) g/dL Hct 31.7 L (42.0-52.0) % MCV 93.5 (80.0-94.0) fL MCH 33.0 H (27.0-31.0) pg MCHC 35.3 (32.0-36.0) g/dL RDW 17.3 H (12.0-15.0) % Plt Count 116 L (130-450) 10^3/uL MPV 9.6 (7.4-11.4) fL Neut # (Auto) 6.6 (1.5-6.6) 10^3/uL Lymph # (Auto) 0.9 L (1.5-3.5) 10^3/uL [place] # (Auto) 0.7 (0.0-1.0) 10^3/uL Eos # (Auto) 0.1 (0.0-0.7) 10^3/uL Baso # (Auto) 0.0 (0.0-0.1) 10^3/uL Absolute Nucleated RBC 0.00 x10^3/uL Nucleated RBC % 0.0 /100WBC D-Dimer 667.7 H (200.0-255.0) ng/mL Sodium 127 L (135-145) mmol/L Potassium 3.7 (3.5-4.5) mmol/L Chloride 94 L (101-111) mmol/L Carbon Dioxide 27 (21-32) mmol/L Anion Gap 6.0 (6-13) BUN 14 (6-20) mg/dL Creatinine 1.0 (0.6-1.3) mg/dL Estimated GFR (MDRD) 73 L (>89) Glucose 92 (74-104) mg/dL Lactic Acid (0.5-2.2) mmol/L Calcium 8.0 L (8.5-10.3) mg/dL Total Bilirubin 1.5 H (0.2-1.0) mg/dL AST 38 (10-42) IU/L ALT 36 (10-60) IU/L Alkaline Phosphatase 69 (42-121) IU/L Total Protein 5.8 L (6.4-8.9) g/dL Albumin 2.8 L (3.2-5.5) g/dL Globulin 3.0 (2.1-4.2) g/dL Albumin/Globulin Ratio 0.9 L (1.0-2.2) Lipase 17 (11-82) U/L Procalcitonin Immunoas 0.31 (<0.5) ng/mL Urine Color Urine Clarity (CLEAR) Urine pH (5.0-7.5) PH Ur Specific [place] (1.002-1.030) Urine Protein (NEGATIVE) mg/dL Urine Glucose (UA) (NEGATIVE) mg/dL Urine Ketones (NEGATIVE) mg/dL Urine Occult Blood (NEGATIVE) Urine Nitrite (NEGATIVE) Urine Bilirubin (NEGATIVE) Urine Urobilinogen (NORMAL) E.U./dL Ur Leukocyte Esterase (NEGATIVE) Urine RBC (0-5) /HPF Urine WBC (0-3) /HPF Urine WBC Clumps Ur Squamous Epith Cells (<= Few) Urine Bacteria (None Seen) /HPF Urine Culture Comments Nasal Adenovirus (PCR) NOT DETECTED Nasal B. parapertussis DNA (PCR) NOT DETECTED Nasal Coronavir 229E PCR NOT DETECTED Nasal Coronavir HKU1 PCR NOT DETECTED Nasal Coronavir NL63 PCR NOT DETECTED Nasal Coronavir OC43 PCR NOT DETECTED Nasal Enterovir/Rhinovir PCR NOT DETECTED Nasal Influenza B PCR NOT DETECTED Nasal Influenza A PCR NOT DETECTED Nasal Parainfluen 1 PCR NOT DETECTED Nasal Parainfluen 2 PCR NOT DETECTED Nasal Parainfluen 3 PCR NOT DETECTED Nasal Parainfluen 4 PCR NOT DETECTED Nasal RSV (PCR) NOT DETECTED Nasal B.pertussis DNA PCR NOT DETECTED Nasal C.pneumoniae (PCR) NOT DETECTED Andrea Human Metapneumo PCR NOT DETECTED Nasal M.pneumoniae (PCR) NOT DETECTED Nasal SARS-CoV-2 (PCR) NOT DETECTED Assessment/Plan Problem List (1) Acute on chronic hypoxic respiratory failure: Impression: D-dimer was elevated, so underwent CTA chest which was negative for PE, but did show some dependent consolidation which is likely atelectasis as well as underlying emphysematous changes On room air Encourage ambulation, incentive spirometry (2) 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 Schwartz Received C4 D1 of L1: Pembrolizumab + Enfortumab on 11/09/2024 This is likely the cause of his generalized weakness, drowsiness Per Dr. Schwartz's note, plan for 1 more dose of chemotherapy on Saturday No significant alteration in WBC count, febrile neutropenia not likely 11/15/2024: His WBC went from 8.3-4. He also had a positive blood culture for gram-positive cocci. This is a possible contaminant, but given that he is actively receiving chemotherapy we will continue to follow blood culture results and check CBC in AM. If his WBCs worsen or his cultures are confirmed, he will need antibiotics (3) Hyponatremia: Impression: 129 today. He is chronically hyponatremic, and this is within his normal range
[2024-11-15] MEDS: cefTRIAXone 1 GM VIAL IVP SCH (18:57)
[2024-11-16 05:32] LABS: BASOPHILS % (AUTO) 0.1 %; EOSINOPHILS % (AUTO) 0.4 %; HCT - HEMATOCRIT 29.6 % (42.0-52.0); HGB - HEMOGLOBIN 10.1 g/dL (14.0-18.0); LYMPHOCYTES # (AUTO) 0.7 10^3/uL (1.5-3.5); LYMPHOCYTES % (AUTO) 10.4 %; MEAN CORPUSCULAR HEMOGLOBIN 32.2 pg (27.0-31.0); MEAN CORPUSCULAR HGB CONC 34.1 g/dL (32.0-36.0); MEAN CORPUSCULAR VOLUME 94.3 fL (80.0-94.0); MEAN PLATELET VOLUME 9.7 fL (7.4-11.4); MONOCYTES # (AUTO) 0.5 10^3/uL (0.0-1.0); MONOCYTES % (AUTO) 7.7 %; NEUTROPHILS # (AUTO) 5.4 10^3/uL (1.5-6.6); NEUTROPHILS % (AUTO) 80.5 %; PLT - PLATELET COUNT 144 10^3/uL (130-450); RED BLOOD COUNT 3.14 10^6/uL (4.70-6.10); WHITE BLOOD COUNT 6.7 x10^3/uL (4.8-10.8)
[2024-11-16 05:56] LABS: CREATININE 0.9 mg/dL (0.6-1.3); POTASSIUM 3.7 mmol/L (3.5-4.5)
--- NOTE | 2024-11-16 08:45 | PROVIDER PROGRESS NOTE ---
Subjective Prog Note Date Prog Note Date: 11/16/24 Prog Note Time: 08:40 Subjective Pt reports feeling: Improved Subjective: Mr. Guzmán reports feeling well, less weak than yesterday. He is feeling ready to go home. He suspects positive blood culture was due to outside contaminant. Denies chest pain, shortness of breath, headache, confusion, abdominal pain. He is comfortable on room air. Current Medications Current Medications Current Medications: Current Medications Generic Name Dose Route Start Last Admin Trade Name Freq PRN Reason Stop Dose Admin Acetaminophen 650 mg 11/14/24 21:39 Acetaminophen 325 Mg Tablet PO Q4HR PRN Pain 1 to 4, or Fever Ceftriaxone Sodium 1 gm 11/15/24 18:10 11/16/24 08:16 Ceftriaxone 1 Gm Vial IVP 1 gm DAILY ARIANE Administration Enoxaparin Sodium 40 mg 11/15/24 09:00 11/16/24 08:16 Enoxaparin 40 Mg/0.4 Ml Syringe SUBQ 40 mg DAILY ARIANE Administration Hydroxyzine Pamoate 25 mg 11/14/24 21:39 Hydroxyzine Pamoate 25 Mg Capsule PO QPM PRN Insomnia Melatonin 3 mg 11/14/24 21:39 11/15/24 20:35 Melatonin 3 Mg Tablet PO 3 mg QPM ARIANE Administration Ondansetron HCl 4 mg 11/14/24 21:39 Ondansetron Odt 4 Mg Tablet TL Q6HR PRN Nausea / Vomiting Ondansetron HCl 4 mg 11/14/24 21:39 Ondansetron 4 Mg/2 Ml Vial IVP Q6HR PRN Nausea / Vomiting Prednisone 40 mg 11/14/24 20:00 11/16/24 08:16 Prednisone 20 Mg Tablet PO 40 mg DAILYWM ARIANE Administration Sodium Chloride 1 gm 11/14/24 21:39 11/16/24 08:16 Sodium Chloride 1 Gm Tablet PO 1 gm BID ARIANE Administration Sodium Chloride 10 ml 11/14/24 21:39 Sodium Chloride Flush 0.9% 10 Ml Syringe IVP PRN PRN NEEDED PER PROVIDER ORDERS Sodium Chloride 10 ml 11/15/24 01:00 11/16/24 08:16 Sodium Chloride Flush 0.9% 10 Ml Syringe IVP 10 ml 0100,0900,1700 ARIANE Administration Objective Vital Signs/Intake & Output Reviewed Vital Signs: Yes Intake & Output: Intake & Output 11/13/24 11/14/24 11/15/24 11/16/24 23:59 23:59 23:59 23:59 Intake Total 1100 / 1100 1500 / 1500 300 / 300 Output Total 1800 / 1800 625 / 625 Balance 1100 / 1100 -300 / -300 -325 / -325 Weight (kg) 69.5 kg Objective General Appearance: positive No acute distress and Alert Eyes Bilateral: positive Normal inspection, PERRL and EOMI ENT: positive ENT inspection nml Neck: positive Nml inspection and No JVD Respiratory: positive Chest non-tender, No respiratory distress and Breath sounds nml; negative Wheezes, Rales or Rhonchi Cardiovascular: positive Regular rate & rhythm; negative No murmur Abdomen: positive Non-tender Back: positive Nml inspection; negative CVA tenderness (R) or CVA tenderness (L) Skin: positive Color nml (tanned) Extremities: positive Non-tender Neurologic/Psychiatric: positive Oriented x3, CN's nml (2-12), Motor nml, Sensation nml and Mood/affect nml Lab Results 11/16/24 05:23 11/16/24 05:23 Other Labs: Lab Results x24hrs 11/16/24 Range/Units 05:23 WBC 6.7 (4.8-10.8) x10^3/uL RBC 3.14 L (4.70-6.10) 10^6/uL Hgb 10.1 L (14.0-18.0) g/dL Hct 29.6 L (42.0-52.0) % MCV 94.3 H (80.0-94.0) fL MCH 32.2 H (27.0-31.0) pg MCHC 34.1 (32.0-36.0) g/dL RDW 17.0 H (12.0-15.0) % Plt Count 144 (130-450) 10^3/uL MPV 9.7 (7.4-11.4) fL Neut # (Auto) 5.4 (1.5-6.6) 10^3/uL Lymph # (Auto) 0.7 L (1.5-3.5) 10^3/uL [place] # (Auto) 0.5 (0.0-1.0) 10^3/uL Eos # (Auto) 0.0 (0.0-0.7) 10^3/uL Baso # (Auto) 0.0 (0.0-0.1) 10^3/uL Absolute Nucleated RBC 0.00 x10^3/uL Nucleated RBC % 0.0 /100WBC Sodium 127 L (135-145) mmol/L Potassium 3.7 (3.5-4.5) mmol/L Chloride 98 L (101-111) mmol/L Carbon Dioxide 25 (21-32) mmol/L Anion Gap 4.0 L (6-13) BUN 19 (6-20) mg/dL Creatinine 0.9 (0.6-1.3) mg/dL Estimated GFR (MDRD) 82 L (>89) Glucose 119 H (74-104) mg/dL Calcium 8.0 L (8.5-10.3) mg/dL Assessment/Plan Problem List (1) Acute on chronic hypoxic respiratory failure: Impression: CTA yesterday negative for PE, but did show mild atelectasis Comfortable on room air with SpO2 at 94% Able to move around the hospital room without assistance per RN Encourage ambulation, incentive spirometry (2) Bacteremia: Impression: Blood culture positive for Streptococcal bacteria. It is possible this is contaminant, but highly unlikely. He will need 1 week of IV Rocephin, today is day 2 of 7. Echo ordered to assess of endocarditis. 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 Schwartz Received C4 D1 of L1: Pembrolizumab + Enfortumab on 11/09/2024 This is likely the cause of his generalized weakness, drowsiness Per Dr. Schwartz's note, plan for 1 more dose of chemotherapy on Saturday No significant alteration in WBC count, febrile neutropenia not likely WBC improved today to 7 (4) Hyponatremia: Impression: 127 today. He is chronically hyponatremic, and this is within his normal range
[2024-11-17 05:29] LABS: BASOPHILS % (AUTO) 0.4 %; EOSINOPHILS # (AUTO) 0.1 10^3/uL (0.0-0.7); EOSINOPHILS % (AUTO) 1.3 %; HGB - HEMOGLOBIN 10.3 g/dL (14.0-18.0); LYMPHOCYTES # (AUTO) 0.9 10^3/uL (1.5-3.5); LYMPHOCYTES % (AUTO) 15.6 %; MEAN CORPUSCULAR HEMOGLOBIN 32.4 pg (27.0-31.0); MEAN CORPUSCULAR HGB CONC 34.3 g/dL (32.0-36.0); MEAN CORPUSCULAR VOLUME 94.3 fL (80.0-94.0); MEAN PLATELET VOLUME 10.1 fL (7.4-11.4); MONOCYTES # (AUTO) 0.7 10^3/uL (0.0-1.0); MONOCYTES % (AUTO) 11.8 %; NEUTROPHILS # (AUTO) 3.9 10^3/uL (1.5-6.6); NEUTROPHILS % (AUTO) 70.4 %; PLT - PLATELET COUNT 179 10^3/uL (130-450); RED BLOOD COUNT 3.18 10^6/uL (4.70-6.10); WHITE BLOOD COUNT 5.6 x10^3/uL (4.8-10.8)
[2024-11-17 05:38] LABS: POTASSIUM 3.8 mmol/L (3.5-4.5)
[2024-11-17] MEDS: cefTRIAXone 1 GM VIAL IVP ONE (12:06)
--- NOTE | 2024-11-17 13:04 | PROVIDER PROGRESS NOTE ---
Subjective Prog Note Date Prog Note Date: 11/17/24 Prog Note Time: 13:03 Subjective Pt reports feeling: No change Subjective: Mr. Guzmán is doing well, no change from yesterday. He denies chest pain, shortness of breath, abdominal discomfort, headache. He is comfortable on room air. No adverse effects on antibiotics. Current Medications Current Medications Current Medications: Current Medications Generic Name Dose Route Start Last Admin Trade Name Freq PRN Reason Stop Dose Admin Acetaminophen 650 mg 11/14/24 21:39 Acetaminophen 325 Mg Tablet PO Q4HR PRN Pain 1 to 4, or Fever Ceftriaxone Sodium 2 gm 11/18/24 09:00 Ceftriaxone 2 Gm Vial IV DAILY [facility] Diltiazem HCl 240 mg 11/18/24 09:00 Diltiazem Cd 240 Mg Capsule PO DAILY [facility] Enoxaparin Sodium 40 mg 11/15/24 09:00 11/17/24 08:20 Enoxaparin 40 Mg/0.4 Ml Syringe SUBQ Not Given DAILY [facility] Furosemide 20 mg 11/18/24 09:00 Furosemide 20 Mg Tablet PO DAILY [facility] Heparin Sodium (Beef Lung) 50 unit 11/17/24 11:59 Heparin Flush 50 Units/5 Ml Syringe IVP PRN PRN NEEDED PER PROVIDER ORDERS Hydroxyzine Pamoate 25 mg 11/14/24 21:39 Hydroxyzine Pamoate 25 Mg Capsule PO QPM PRN Insomnia Melatonin 3 mg 11/14/24 21:39 11/16/24 20:16 Melatonin 3 Mg Tablet PO 3 mg QPM ARIANE Administration Mirtazapine 15 mg 11/17/24 21:00 Mirtazapine 15 Mg Tablet PO QPM [facility] Multivitamins/Minerals 1 tab 11/18/24 08:00 Multivitamin W/Minerals Tablet PO DAILYWM [facility] Ondansetron HCl 4 mg 11/14/24 21:39 Ondansetron Odt 4 Mg Tablet TL Q6HR PRN Nausea / Vomiting Ondansetron HCl 4 mg 11/14/24 21:39 Ondansetron 4 Mg/2 Ml Vial IVP Q6HR PRN Nausea / Vomiting Pyridoxine HCl 100 mg 11/18/24 09:00 Pyridoxine 100 Mg Tablet PO DAILY [facility] Saccharomyces Boulardii 250 mg 11/17/24 17:00 Saccharomyces Boulardii 250 Mg Capsule PO BIDWM [facility] Sodium Chloride 1 gm 11/14/24 21:39 11/17/24 08:20 Sodium Chloride 1 Gm Tablet PO 1 gm BID ARIANE Administration Sodium Chloride 10 ml 11/14/24 21:39 Sodium Chloride Flush 0.9% 10 Ml Syringe IVP PRN PRN NEEDED PER PROVIDER ORDERS Sodium Chloride 10 ml 11/15/24 01:00 11/17/24 08:22 Sodium Chloride Flush 0.9% 10 Ml Syringe IVP 10 ml 0100,0900,1700 ARIANE Administration Sterile Water 20 ml 11/18/24 09:00 Water For Injection,Sterile 10 Ml Vial DAILY [facility] Objective Vital Signs/Intake & Output Reviewed Vital Signs: Yes Vital Signs: Vital Signs x48h Temp Pulse Resp BP Pulse Ox 11/17/24 08:19 36.2 C L 97 14 135/74 H 94 Intake & Output: Intake & Output 11/14/24 11/15/24 11/16/24 11/17/24 23:59 23:59 23:59 23:59 Intake Total 1100 / 1100 1500 / 1500 1572 / 1572 150 / 150 Output Total 1800 / 1800 625 / 625 600 / 600 Balance 1100 / 1100 -300 / -300 947 / 947 -450 / -450 Weight (kg) 69.5 kg Objective General Appearance: positive No acute distress and Alert Eyes Bilateral: positive Normal inspection, PERRL and EOMI ENT: positive ENT inspection nml Neck: positive Nml inspection and No JVD Respiratory: positive Chest non-tender, No respiratory distress and Breath sounds nml; negative Wheezes, Rales or Rhonchi Cardiovascular: positive Regular rate & rhythm Abdomen: positive Non-tender Back: positive Nml inspection; negative CVA tenderness (R) or CVA tenderness (L) Skin: positive Color nml (tanned) Extremities: positive Non-tender and Full ROM Neurologic/Psychiatric: positive Oriented x3, CN's nml (2-12), Motor nml, Sensation nml and Mood/affect nml Lab Results 11/17/24 05:08 11/17/24 05:08 Other Labs: Lab Results x24hrs 11/17/24 Range/Units 05:08 WBC 5.6 (4.8-10.8) x10^3/uL RBC 3.18 L (4.70-6.10) 10^6/uL Hgb 10.3 L (14.0-18.0) g/dL Hct 30.0 L (42.0-52.0) % MCV 94.3 H (80.0-94.0) fL MCH 32.4 H (27.0-31.0) pg MCHC 34.3 (32.0-36.0) g/dL RDW 17.0 H (12.0-15.0) % Plt Count 179 (130-450) 10^3/uL MPV 10.1 (7.4-11.4) fL Neut # (Auto) 3.9 (1.5-6.6) 10^3/uL Lymph # (Auto) 0.9 L (1.5-3.5) 10^3/uL [place] # (Auto) 0.7 (0.0-1.0) 10^3/uL Eos # (Auto) 0.1 (0.0-0.7) 10^3/uL Baso # (Auto) 0.0 (0.0-0.1) 10^3/uL Absolute Nucleated RBC 0.00 x10^3/uL Nucleated RBC % 0.0 /100WBC Sodium 128 L (135-145) mmol/L Potassium 3.8 (3.5-4.5) mmol/L Chloride 96 L (101-111) mmol/L Carbon Dioxide 25 (21-32) mmol/L Anion Gap 7.0 (6-13) BUN 21 H (6-20) mg/dL Creatinine 1.0 (0.6-1.3) mg/dL Estimated GFR (MDRD) 73 L (>89) Glucose 90 (74-104) mg/dL Calcium 8.0 L (8.5-10.3) mg/dL Diagnostic Imaging Diagnostic Imaging Results: positive Final report reviewed Diagnostic Imaging Comments: ECHO: normal without vegetation ABX Reporting Has patient been on IV antibiotics over the past 48 hours?: Yes Assessment/Plan Problem List (1) Acute on chronic hypoxic respiratory failure: Impression: Comfortable on room air with SpO2 at 94% Able to move around the hospital room without assistance per RN Encourage ambulation, incentive spirometry (2) Bacteremia: Impression: Blood culture positive for Streptococcal bacteria. It is possible this is contaminant, but highly unlikely. It is most likely that his chemo port is the source of this infection. He will need 2 weeks of IV Rocephin, today is day 3 of 7. Echo completed and is negative for vegetation or valvular abnormalities. 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 Schwartz Received C4 D1 of L1: Pembrolizumab + Enfortumab on 11/09/2024 This is likely the cause of his generalized weakness, drowsiness Per Dr. Schwartz's note, plan for 1 more dose of chemotherapy on Saturday No significant alteration in WBC count, febrile neutropenia not likely (4) Hyponatremia: Impression: 128 today. He is chronically hyponatremic, and this is within his normal range
[2024-11-17] MEDS: SACCHAROMYCES BOULARDII 250 MG CAPSULE PO SCH (16:37)
[2024-11-17] MEDS: MIRTAZAPINE 15 MG TABLET PO SCH (20:48)
[2024-11-18 05:01] LABS: BASOPHILS % (AUTO) 0.3 %; EOSINOPHILS % (AUTO) 0.3 %; HCT - HEMATOCRIT 31.5 % (42.0-52.0); HGB - HEMOGLOBIN 10.6 g/dL (14.0-18.0); LYMPHOCYTES % (AUTO) 15.7 %; MEAN CORPUSCULAR HGB CONC 33.7 g/dL (32.0-36.0); MEAN CORPUSCULAR VOLUME 95.2 fL (80.0-94.0); MEAN PLATELET VOLUME 10.1 fL (7.4-11.4); MONOCYTES # (AUTO) 0.8 10^3/uL (0.0-1.0); MONOCYTES % (AUTO) 12.4 %; NEUTROPHILS # (AUTO) 4.5 10^3/uL (1.5-6.6); NEUTROPHILS % (AUTO) 70.2 %; PLT - PLATELET COUNT 218 10^3/uL (130-450); RED BLOOD COUNT 3.31 10^6/uL (4.70-6.10); RED CELL DISTRIBUTION WIDTH 17.2 % (12.0-15.0); WHITE BLOOD COUNT 6.4 x10^3/uL (4.8-10.8)
[2024-11-18 05:14] LABS: CALCIUM 8.1 mg/dL (8.5-10.3); CREATININE 0.9 mg/dL (0.6-1.3); POTASSIUM 3.8 mmol/L (3.5-4.5)
[2024-11-18 08:17] VITALS: BP 145/88; TEMP 97.3; O2SAT 93
[2024-11-18] MEDS: cefTRIAXone 2 GM VIAL IV SCH (08:21)
[2024-11-18] MEDS: diltiaZEM CD 240 MG CAPSULE PO SCH (08:21)
[2024-11-18] MEDS: FUROSEMIDE 20 MG TABLET PO SCH (08:21)
[2024-11-18] MEDS: MULTIVITAMIN W/MINERALS TABLET PO SCH (08:21)
[2024-11-18] MEDS: PYRIDOXINE 100 MG TABLET PO SCH (08:30)
--- NOTE | 2024-11-18 12:27 | Discharge Summary ---
Discharge Summary Admit Date: 11/14/24 Discharge Date: 11/18/24 Discharging Provider: Ankita Dahl PA-C Primary Care Provider: Katlin Calles PA-C Code Status: Do Not Attempt Resuscitation HPI History of Present Illness: 74-year-old male undergoing chemotherapy for bladder cancer presented to the ED with fever, chills, significant fatigue. He reports he has been unable to stay awake for any significant amount of time today. Has history of chronic hyponatremia on p.o. supplementation, hyperlipidemia, CAD, hypertension, COPD. He states that he normally gets fatigue from his chemotherapy here in the [facility] clinic, last treatment was on Saturday. He reports today he was unable to stay awake for simple conversations and noticed fevers at home up to 103 F In the ER, chest x-ray was performed which showed peribronchial cuffing within the Triest interstitial markings, suggestive of pulmonary edema. Lab work was overall unremarkable other than his chronically low sodium. No elevation in WBC, no neutropenia, negative respiratory viral panel he did, however, required 2 L oxygen in the ER, so hospitalist was contacted for admission for acute on chronic hypoxic respiratory failure ALLERGIES Allergies Allergy/AdvReac Type Severity Reaction Status Date / Time gabapentin Allergy Intermediate Blistering Verified 11/14/24 17:58 Whole Body MEDICATIONS Ambulatory Orders Medication Instructions Recorded Confirmed furosemide 20 mg tablet 20 mg PO DAILY 04/22/24 11/15/24 Lactobacillus acidophilus 10 100 mmu cells PO DAILY 08/26/24 11/15/24 billion cell capsule (Probacap) diltiazem HCl 240 mg capsule,24 240 mg PO DAILY 08/26/24 11/15/24 hr,extended release pyridoxine (vitamin B6) 50 mg 100 mg PO DAILY 10/21/24 11/15/24 capsule (Vitamin B-6) sodium chloride 1,000 mg soluble 1,000 mg PO BID #180 tabs 11/05/24 11/15/24 tablet ceftriaxone 2 gram solution for 2 g IV DAILY #10 ea 11/18/24 injection mirtazapine 15 mg tablet 15 mg PO QPM #30 tabs 11/18/24 11/15/24 [id number] 1 tab PO DAILYWM #30 tabs 11/18/24 fumarate 19 mg-folic acid 400 mcg tablet (Therapeutic-M) LABS 11/18/24 04:35 11/18/24 04:35 Discharge Plan Discharge Patient Disposition: Home, Self Care Condition: Good Prescriptions: New ceftriaxone 2 gram Recon Soln 2 g IV DAILY Qty: 10 0RF Therapeutic-M 19 mg iron- 400 mcg Tablet 1 tab PO DAILYWM Qty: 30 3RF Continued furosemide 20 MG tablet 20 mg PO DAILY diltiazem HCl 240 mg capsule,extended release 24 hr 240 mg PO DAILY Probacap 10 billion cell capsule 100 mmu cells PO DAILY Vitamin B-6 50 mg capsule 100 mg PO DAILY mirtazapine 15 mg tablet 15 mg PO QPM Qty: 30 0RF Rx Instructions: for sleep and appetite sodium chloride 1,000 mg tablet,soluble 1,000 mg PO BID Qty: 180 3RF Rx Instructions: for sodium Activity Restrictions: No Restrictions Diet: Regular Health Concerns: You are a 74-year-old male who came into the emergency department with fever and chills and feeling very poorly. You are currently undergoing treatment for your bladder cancer which makes you immunosuppressed. It is also cause you to lose some weight. You had a fever up to 103 degrees at home. You were admitted to the hospital because at the time you were requiring supplemental oxygen. It turns out that you had bacteria growing in your blood which was causing you to be very sick. With regards to your need for oxygen this quickly resolved. We also checked you for a pulmonary embolus which can happen in the setting of cancer. This test was negative. You have chronically low sodium. With treatment of your infection here in the hospital your sodium has improved. I would still recommend that you continue to take your sodium tablets as you have been previously prescribed. While you are here in the hospital you had a test called an echocardiogram. This was to make sure that there was not something in your heart that was harboring bacteria. This looked good, and your heart function looks normal. There are no problems with your heart valves. While you have been here you have demonstrated the ability to walk independently in the halls and you seem like you are safe to go home. You do need to complete all of your antibiotic therapy and you have been set up to go to the [facility] to continue to do this. Assessment: Complete 14 days of IV Rocephin Follow-up with Leora Calles your primary care doctor provider. Have her recheck your blood cultures. Try to eat a good diet with plenty of calories. You have lost EMIS 20 pounds in the last 3 to 4 months. Continue the mirtazapine as this seems to be helping with your appetite. Print Language: Romanian Patient Instructions: Sepsis Follow-up Care: Katlin Calles PA-C [Primary Care Provider] -
--- NOTE | 2024-11-18 16:11 | Discharge Summary ---
Discharge Summary Admit Date: 11/14/24 Discharge Date: 11/18/24 Discharging Provider: Ankita Dahl PA-C Primary Care Provider: Katlin Calles PA-C Code Status: Do Not Attempt Resuscitation Discharge Facility Name: Home DIAGNOSES Admission Diagnoses: Acute on chronic hypoxic respiratory failure, Bladder cancer, Hyponatremia Discharge Diagnoses with Status of Each Condition: (1) Acute on chronic hypoxic respiratory failure - resolved. Comfortable on room air with saturations 93% and above, able to walk around hospital floor without assistance. (2) Bacteremia: Day 12/28 of IV Rocephin. Asymptomatic. 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 To follow up with Dr. Schwartz (4) Hyponatremia - Chronic, stable. HPI History of Present Illness: 74-year-old male undergoing chemotherapy for bladder cancer presented to the ED with fever, chills, significant fatigue. He reports he has been unable to stay awake for any significant amount of time today. Has history of chronic hyponatremia on p.o. supplementation, hyperlipidemia, CAD, hypertension, COPD. He states that he normally gets fatigue from his chemotherapy here in [place] [facility], last treatment was on Saturday. He reports today he was unable to stay awake for simple conversations and noticed fevers at home up to 103 F In the ER, chest x-ray was performed which showed peribronchial cuffing within the Triest interstitial markings, suggestive of pulmonary edema. Lab work was overall unremarkable other than his chronically low sodium. No elevation in WBC, no neutropenia, negative respiratory viral panel he did, however, required 2 L oxygen in the ER, so hospitalist was contacted for admission for acute on chronic hypoxic respiratory failure HOSPITAL COURSE Hospital Course: 11/14/24 admitted for weakness, chronic hyponatremia. On 11/15/24, He was found to have elevated D-Dimer and subsequently had CTA chest which was negative for PE but did show some atelectasis and emphysematic changes. Blood cultures positive for streptococcal bacteria, started on IV Rocephin. On 11/16/24, ECHO negative and Rocephin increased to 2g for total 14 days. On 11/17/24, repeat blood cultures were taken. Today, patient is feeling well, repeat cultures are without growth after 1 day, and the [facility] [place] prepared to continue IV Rocephin administration in outpatient setting. ALLERGIES Allergies Allergy/AdvReac Type Severity Reaction Status Date / Time gabapentin Allergy Intermediate Blistering Verified 11/14/24 17:58 Whole Body MEDICATIONS Ambulatory Orders Medication Instructions Recorded Confirmed furosemide 20 mg tablet 20 mg PO DAILY 04/22/24 11/15/24 Lactobacillus acidophilus 10 100 mmu cells PO DAILY 08/26/24 11/15/24 billion cell capsule (Probacap) diltiazem HCl 240 mg capsule,24 240 mg PO DAILY 08/26/24 11/15/24 hr,extended release pyridoxine (vitamin B6) 50 mg 100 mg PO DAILY 10/21/24 11/15/24 capsule (Vitamin B-6) sodium chloride 1,000 mg soluble 1,000 mg PO BID #180 tabs 11/05/24 11/15/24 tablet ceftriaxone 2 gram solution for 2 g IV DAILY #10 ea 11/18/24 injection mirtazapine 15 mg tablet 15 mg PO QPM #30 tabs 11/18/24 11/15/24 [id number] 1 tab PO DAILYWM #30 tabs 11/18/24 fumarate 19 mg-folic acid 400 mcg tablet (Therapeutic-M) PHYSICAL EXAM AT DISCHARGE General Appearance: positive No acute distress and Alert Eyes Bilateral: positive Normal inspection, PERRL and EOMI ENT: positive ENT inspection nml Neck: positive Nml inspection and No JVD Respiratory: positive Chest non-tender, No respiratory distress and Breath sounds nml Cardiovascular: positive Regular rate & rhythm Abdomen: positive Non-tender Back: positive Nml inspection; negative CVA tenderness (R) or CVA tenderness (L) Skin: positive Color nml (tanned) Extremities: positive Non-tender Neurologic/Psychiatric: positive Oriented x3, CN's nml (2-12), Motor nml, Sensation nml and Mood/affect nml Physical Exam Other/Comments: port site on left chest wall is clean and dry, no edema or tenderness or warmth. LABS 11/18/24 04:35 11/18/24 04:35 FOLLOW UP Follow Up: Patient is to follow up with Dr. Schwartz for ongoing treatment of bladder cancer, and with [facility] for completion of IV Rocephin treatment. PCP Katlin Calles PA-C TIME SPENT Time Spent in Discharge (Minutes): 25 Discharge Plan Discharge Patient Disposition: Home, Self Care Condition: Good Prescriptions: New ceftriaxone 2 gram Recon Soln 2 g IV DAILY Qty: 10 0RF Therapeutic-M 19 mg iron- 400 mcg Tablet 1 tab PO DAILYWM Qty: 30 3RF Continued furosemide 20 MG tablet 20 mg PO DAILY diltiazem HCl 240 mg capsule,extended release 24 hr 240 mg PO DAILY Probacap 10 billion cell capsule 100 mmu cells PO DAILY Vitamin B-6 50 mg capsule 100 mg PO DAILY mirtazapine 15 mg tablet 15 mg PO QPM Qty: 30 0RF Rx Instructions: for sleep and appetite sodium chloride 1,000 mg tablet,soluble 1,000 mg PO BID Qty: 180 3RF Rx Instructions: for sodium Activity Restrictions: No Restrictions Diet: Regular Health Concerns: You are a 74-year-old male who came into the emergency department with fever and chills and feeling very poorly. You are currently undergoing treatment for your bladder cancer which makes you immunosuppressed. It is also cause you to lose some weight. You had a fever up to 103 degrees at home. You were admitted to the hospital because at the time you were requiring supplemental oxygen. It turns out that you had bacteria growing in your blood which was causing you to be very sick. With regards to your need for oxygen this quickly resolved. We also checked you for a pulmonary embolus which can happen in the setting of cancer. This test was negative. You have chronically low sodium. With treatment of your infection here in the hospital your sodium has improved. I would still recommend that you continue to take your sodium tablets as you have been previously prescribed. While you are here in the hospital you had a test called an echocardiogram. This was to make sure that there was not something in your heart that was harboring bacteria. This looked good, and your heart function looks normal. There are no problems with your heart valves. While you have been here you have demonstrated the ability to walk independently in the halls and you seem like you are safe to go home. You do need to complete all of your antibiotic therapy and you have been set up to go to the [facility] [place] continue to do this. Assessment: Complete 14 days of IV Rocephin Follow-up with Leora Calles your primary care doctor provider. Have her recheck your blood cultures. Try to eat a good diet with plenty of calories. You have lost EMIS 20 pounds in the last 3 to 4 months. Continue the mirtazapine as this seems to be helping with your appetite. Print Language: Italian Patient Instructions: Sepsis Follow-up Care: Katlin Calles PA-C [Primary Care Provider] -
== END 2024-11-18 14:07 | disposition home or self-care (01) | DRG 189 ==
LOC: ED 17:47 → MS2 19:55
PROVIDERS: ADMIT Nurse Practitioner Acute Care; ATTEND Nurse Practitioner Acute Care
DX: R53.1 Weakness; R78.81 Bacteremia; J44.9 Chronic obstructive pulmonary disease, unspecified; C77.5 Secondary and unspecified malignant neoplasm of intrapelvic lymph nodes; I10 Essential (primary) hypertension; E78.5 Hyperlipidemia, unspecified; J96.21 Acute and chronic respiratory failure with hypoxia; D64.9 Anemia, unspecified; B95.5 Unspecified streptococcus as the cause of diseases classified elsewhere; E87.1 Hypo-osmolality and hyponatremia; I25.10 Atherosclerotic heart disease of native coronary artery without angina pectoris; Z66 Do not resuscitate; C67.9 Malignant neoplasm of bladder, unspecified; D84.89 Other immunodeficiencies; F17.210 Nicotine dependence, cigarettes, uncomplicated